=== PATIENT | female | born 1975 | race Caucasian/White ===

== ENCOUNTER 2017-04-02 03:24 | Emergency (ER) | payer MEDICAID ==
[~2017-04-02] VITALS: Ht 157.5 cm; Wt 108.9 kg
[~2017-04-02 03:24] MED LIST: ACET500C4 PO; AGM875T GT; AMPI250C11 PO; AMX500CIP PO; CYCL10TA9 PO; DOCU100C37 PO; ESTR1PAT73 TD; HYDR-3062 PO; HYDR-3714 PO; HYDR-3729 PO; HYDR-3816 PO; IBUP-1773 PO; IBUP-1780 PO; IBUP200C PO; METH4TAB PO; METR500T PO; ONDA4SOL2 PO; ONDAN4ODT PO; PRD20T PO; SIME80TA16 PO; SULF1TAB35 PO; SULF1TAB38 PO; TRAM-21 PO; TRAM50TA2 PO
[2017-04-02] MEDS ORDERED: KETOROLAC 60 MG/2 ML VIAL IM ONE (03:39)
[2017-04-02 03:42] LABS: KETONES,URINE NEGATIVE (NEGATIVE); LEUKOCYTE ESTERASE ,URINE NEGATIVE (NEGATIVE); NITRITE,URINE POSITIVE (NEGATIVE); PH,URINE 5 (5-9); PROTEIN,URINE 3+ (NEGATIVE); UROBILINOGEN,URINE 4 MG/DL (NORMAL)
[2017-04-02] MEDS ORDERED: KETOROLAC 60 MG/2 ML VIAL IM STA (03:42)
[2017-04-02 03:51] LABS: BILIRUBIN,URINE 3+ (NEGATIVE)
--- NOTE | 2017-04-02 03:51 | ED GU-Female ---
General Stated Complaint: POSS UTI Source: patient Exam Limitations: no limitations History of Present Illness Time seen by provider: 03:37 Initial Comments Here with complaint of pressure sensation and frequency of urination. She just completed a round of antibiotics that she did not know for sure what was but appears to be Bactrim DS by electronic medical record. Also took 2 days of tonight. She has completed the antibiotic treatment yesterday and did okay but today with worsening symptoms and problems. Timing/Duration: yesterday, changing over time Severity/Quality: mild, moderate, burning Location: suprapubic Radiation: none Activities at Onset: none Prior Genitourinary Problems: none Sexual [place] History: less than 2 months ago, single partner Modifying Factors: Improves With Resting Associated Symptoms: abdominal pain, dysuria, No fever/chills, No loss of bladder control, lower back pain, No mass, No nausea/vomiting, urinary frequency Allergies and Home Medications Allergies Coded Allergies: No Known Drug Allergies (Unverified , 12/23/09) Home Medications Docusate Sodium 100 Mg Capsule, 100 MG PO BID PRN for CONSTIPATION, #60 Prescribed by: ASHA PEMBERTON on 07/28/16 0848 Estradiol 1 Each Patch.tdwk, 1 EACH TD Weekly, #4 Ref 0 Prescribed by: ASHA PEMBERTON on 07/28/16 0850 Hydrocodone/Acetaminophen 1 Each Tablet, 0 EA PO Q6H PRN for MOD PAIN, #30 Prescribed by: ASHA PEMBERTON on 07/28/16 0848 Ibuprofen 600 Mg Tablet, 600 MG PO Q6H PRN for PAIN, #30 Prescribed by: ASHA PEMBERTON on 07/28/16 0848 Simethicone 80 Mg Tab.chew, 40 MG PO TID PRN for INDIGESTION, #20 Prescribed by: ASHA PEMBERTON on 07/28/16 0848 Constitutional: see HPI, No chills, No fever EENTM: no symptoms reported Respiratory: no symptoms reported Gastrointestinal: see HPI, No nausea, No vomiting Genitourinary: see HPI, frequency, pain Musculoskeletal: no symptoms reported Past Qtrtyeh-Loywas-Cenmvi Hx Patient Social History Alcohol Use: Occasionally Uses Recreational Drug Use: No Smoking Status: Current Everyday Smoker Type Used: Cigarettes Recent Foreign Travel: No Contact w/Someone Who Travel: No Recent Hopitalizations: No Immunizations Up To Date Tetanus Booster (TDap): Unknown Date of Influenza Vaccine: Jul 17, 2014 Seasonal Allergies Seasonal Allergies: No Surgeries HX Surgeries: Yes (D&C X2, VENTRAL HERNIA REPAIR, ) Surgeries: Appendectomy, Section Respiratory Hx Respiratory Disorders: No Cardiovascular Hx Cardiac Disorders: No Neurological Hx Neurological Disorders: No Reproductive System Hx 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: Yes (menorrhagia) Sexually Transmitted Disease: No HIV/AIDS: No Female 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: Ovarian Cyst Genitourinary Hx Genitourinary Disorders: Yes (currently taking abx for UTI) Gastrointestinal Hx Gastrointestinal Disorders: No Musculoskeletal Hx Musculoskeletal Disorders: No Endocrine Hx Endocrine Disorders: No HEENT HX ENT Disorders: Yes (FULL SET OF DENTURES) Hearing Impairment: Denies Cancer Hx Cancer: No Psychosocial Hx Psychiatric Problems: No Integumentary HX Skin/Integumentary Disorder: No Blood Transfusions Hx Blood Disorders: No Adverse Reaction to a Blood Tr: No Reviewed Nursing Assessment Reviewed/Agree w Nursing PMH: Yes Family Medical History Family Medial History: Congestive heart failure 19 FATHER Family history: Cardiovascular disease 19 FATHER Family history: Diabetes mellitus 19 MOTHER Heart disease 19 MOTHER History of - respiratory disease 19 FATHER 19 MOTHER Kidney disease 19 MOTHER Physical Exam Vital Signs Capillary Refill : General Appearance: WD/WN, mild distress (urinary frequency) Cardiovascular: regular rate, rhythm, no murmur Respiratory: lungs clear, normal breath sounds Gastrointestinal: soft, tenderness (mild suprapubic) Back: normal inspection, no CVA tenderness, no vertebral tenderness Extremities: non-tender, normal inspection Neurologic/Psychiatric: alert, oriented x 3 Skin: normal color, warm/dry Progress/Results/Core Measures Results/Orders Lab Results Laboratory Tests Test 04/02/17 03:29 Range/Units Urine Color ORANGE Urine Clarity SLIGHTLY CLOUDY Urine pH 5 5-9 Urine Specific Free [place]il 1.030 H 1.016-1.022 Urine Protein 3+ H NEGATIVE Urine Glucose (UA) NEGATIVE NEGATIVE Urine Ketones NEGATIVE NEGATIVE Urine Nitrite POSITIVE H NEGATIVE Urine Bilirubin 3+ H NEGATIVE Urine Urobilinogen 4 H NORMAL MG/DL Urine Leukocyte Esterase NEGATIVE NEGATIVE Urine RBC (Auto) 2+ H NEGATIVE Urine RBC 2-5 H /HPF Urine WBC 2-5 /HPF Urine Squamous Epithelial Cells 5-10 /HPF Urine Crystals NONE /LPF Urine Bacteria MODERATE H /HPF Urine Casts NONE /LPF Urine Mucus NEGATIVE /LPF Urine Culture Indicated YES My Orders Orders - KRISTINA REESE MD Ua Culture If Indicated (04/02/17 03:32) Ketorolac Injection (Toradol Injection) (04/02/17 03:42) Ketorolac Injection (Toradol Injection) (04/02/17 03:39) Urine Culture (04/02/17 03:29) Cephalexin Capsule (Keflex Capsule) (04/02/17 04:03) Progress Note : Progress Note Seen and evaluated. Toradol 60 mg IM. UA ordered. Monitor patient. Urine noted to be positive for UTI. Keflex 500 mg by mouth. Discharged home with return precautions. Patient verbalize understanding instructions and agreement with plan. Departure Impression Impression: Primary Impression: Urinary tract infection Qualified Codes: N30.00 - Acute cystitis without hematuria Disposition: HOME, SELF-CARE Condition: Stable Departure-Patient Inst. Decision time for Depature: 04:06 Referrals: MELANIE PRINCE DO (PCP/Family) Primary Care Physician Patient Instructions: Urinary Tract Infection, Adult (DC) Add. Discharge Instructions: Take medications as directed. Follow-up with your doctor this week for recheck. You should follow-up with Dr. Reardon for recheck and further evaluation as well as you have frequent urinary tract infections. Return for worse pain, fever, vomiting, weakness, breathing problems or other concerns as needed. You may take ibuprofen 800 mg every 8 hours as needed for pain. You may take Tylenol 1000 mg every 8 hours as needed for pain. Scripts Cephalexin (Cephalexin) 500 Mg Tablet 500 MG PO BID, #14 TAB 0 Refills Prov: KRISTINA REESE MD 04/02/17 KRISTINA REESE MD Apr 02, 2017 03:51
[2017-04-02] MEDS ORDERED: CEPHALEXIN 250 MG (KEFLEX) CAP PO ONE (04:00)
[2017-04-02] MEDS ORDERED: CEPHALEXIN 250 MG (KEFLEX) CAP PO STA (04:03)
[2017-04-02] MEDS ORDERED: CEPH500T PO (04:07)
[2017-04-02 04:15] VITALS: BP 140/70
== END 2017-04-02 04:12 | disposition home or self-care (01) ==
LOC: EDUNIT# 03:24 → ER 03:26
DX: N39.0 Urinary tract infection, site not specified (principal); F17.210 Nicotine dependence, cigarettes, uncomplicated; Z98.890 Other specified postprocedural states
CPT/HCPCS: 81000; 87088; 99282

== ENCOUNTER 2017-04-09 22:35 | Emergency (ER) | payer MEDICAID ==
[~2017-04-09] VITALS: Ht 157.5 cm; Wt 109.1 kg
[~2017-04-09 22:35] MED LIST changes: +CEPH500T PO
[2017-04-09] MEDS ORDERED: RX-NAPROXEN (NAPROSYN) 250 MG TAB PPK#4 PO STA (23:25)
[2017-04-09] MEDS ORDERED: RX-TRAMADOL 50 MG (ULTRAM) TAB PPK#4 PO STA (23:25)
[2017-04-09] MEDS ORDERED: NAPR500T3 PO (23:31)
[2017-04-09] MEDS ORDERED: TRAM-42 PO (23:31)
--- NOTE | 2017-04-09 23:31 | ED Lower Extremity ---
General Chief Complaint: Lower Extremity Stated Complaint: R KNEE PAIN Nursing Triage Note: C/O R knee pain Nursing Sepsis Screen: No Definite Risk Source: patient History of Present Illness Time seen by provider: 23:12 Initial Comments C/O RIGHT KNEE PAIN STATES SHE WAS "RUNNING AROUND" OUTSIDE IN [place] LAST NIGHT, AND STEPPED IN A HOLE AND TWISTED RIGHT KNEE DID NOT FALL AND NO DIRECT TRAUMA TO KNEE STATES SHE CANNOT BEAR WEIGHT ON RIGHT DUE TO PAIN IN KNEE KNEE IS SWOLLEN, AND SWELLING IS BETTER WHEN SHE PUTS ICE ON IT NO OTHER INJURIES OR PAIN NO PARESTHESIAS OR MOTOR DEFICITS NO PRIOR INJURY TO THIS KNEE, BUT STATES SHE DOES OCCASIONALLY HAVE PAIN IN THIS KNEE, BUT NEVER LIKE THIS PCP: DR. PRINCE Allergies and Home Medications Allergies Coded Allergies: No Known Drug Allergies (Unverified , 12/23/09) Home Medications Naproxen 500 Mg Tablet, 500 MG PO BID, #20 Prescribed by: SHELBY MESA on 04/09/17 2331 Tramadol HCl 50 Mg Tablet, 50 MG PO Q4H, #20 Prescribed by: SHELBY MESA on 04/09/17 2331 Constitutional: no symptoms reported : No Control/STD Prophylaxis: Other (HYST) Musculoskeletal: see HPI Skin: no symptoms reported Psychiatric/Neurological: No Symptoms Reported Past Qqlctgl-Bvrgqy-Wcussv Hx Patient Social History Alcohol Use: Denies Use Recreational Drug Use: No Smoking Status: Current Everyday Smoker Type Used: Cigarettes Recent Foreign Travel: No Contact w/Someone Who Travel: No Recent Infectious Disease Expo: No Recent Hopitalizations: No Immunizations Up To Date Tetanus Booster (TDap): Unknown Date of Influenza Vaccine: Jul 17, 2016 Seasonal Allergies Seasonal Allergies: No Surgeries HX Surgeries: Yes (D&C X2, VENTRAL HERNIA REPAIR, ) Surgeries: Abdominal, Appendectomy, Section, Hysterectomy Respiratory Hx Respiratory Disorders: No Cardiovascular Hx Cardiac Disorders: No Neurological Hx Neurological Disorders: No Reproductive System Hx 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: Yes (MENORRHAGIA) Sexually Transmitted Disease: No HIV/AIDS: No Female 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: Ovarian Cyst [place] History: Hysterectomy Genitourinary Hx Genitourinary Disorders: Yes Genitourinary Disorders: Bladder Infection Gastrointestinal Hx Gastrointestinal Disorders: No Musculoskeletal Hx Musculoskeletal Disorders: No Endocrine Hx Endocrine Disorders: No (OBESITY) HEENT HX ENT Disorders: Yes (FULL SET OF DENTURES) Hearing Impairment: Denies Cancer Hx Cancer: No Psychosocial Hx Psychiatric Problems: No Integumentary HX Skin/Integumentary Disorder: No Blood Transfusions Hx Blood Disorders: No Adverse Reaction to a Blood Tr: No Family Medical History Family Medial History: Congestive heart failure 19 FATHER Family history: Cardiovascular disease 19 FATHER Family history: Diabetes mellitus 19 MOTHER Heart disease 19 MOTHER History of - respiratory disease 19 FATHER 19 MOTHER Kidney disease 19 MOTHER Physical Exam Vital Signs Vital Sign - Last 12Hours 04/09/17 04/09/17 23:04 23:37 Temp 98.2 Pulse 74 Resp 18 B/P (MAP) 138/98 Pulse Ox 96 O2 Delivery Room Air Capillary Refill : Less Than 3 Seconds General Appearance: no apparent distress, obese, other (PT DID AMBULATE IN ON HER OWN) Cardiovascular: normal peripheral pulses, regular rate, rhythm Respiratory: normal breath sounds Hips: right hip normal inspection Legs: bilateral leg other (TRACE TO 1+ EDEMA BILATERAL LOWER LEGS) Knees: left knee normal inspection, right knee bone tenderness, right knee pain , right knee soft tissue tenderness, right knee swelling (MODERATE SWELLING), right knee other (TENDERNESS IS TO PATELLA AND LATERAL ASPECT OF KNEE. 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, no motor/sensory deficits, alert, normal mood/affect, oriented x 3 Skin: normal color, warm/dry Splinting and Joint Reduction : Roland wrap: Yes Immobilizers: 24 inch Knee Ordered: Crutches Progress/Results/Core Measures Results/Orders My Orders Orders - SHELBY MESA DO Knee, Right, 3 Views (04/09/17 23:13) Roland Bandage (04/09/17 23:24) Crutches (04/09/17 23:24) Knee Immobilizer (04/09/17 23:24) Rx-Naproxen (Rx-Naprosyn) (04/09/17 23:25) Rx-Tramadol Hcl (Rx-Ultram) (04/09/17 23:25) Vital Signs/I&O Vital Sign - Last 12Hours 04/09/17 04/09/17 23:04 23:37 Temp 98.2 98.0 Pulse 74 81 Resp 18 16 B/P (MAP) 138/98 Pulse Ox 96 97 O2 Delivery Room Air Blood Pressure Mean: 111 Departure Impression Impression: Primary Impression: Right knee sprain Disposition: 01 HOME, SELF-CARE Condition: Stable Departure-Patient Inst. Referrals: MELANIE PRINCE DO (PCP/Family) Primary Care Physician Patient Instructions: Going Up and Down Curbs or Stairs With a Walker or Crutches, How to Use Crutches, How to Use an Elastic Bandage, Knee Immobilizer ( DC), Knee Sprain (DC) Add. Discharge Instructions: ROLAND WRAP, KNEE IMMOBILIZER AND CRUTCHES NEEDED FOR COMFORT ICE TO AREA AT 20 MINUTE INTERVALS ELEVATE LEG MUCH POSSIBLE FOLLOW UP WITH YOUR DR IN 5-7 DAYS FOR FURTHER CARE All discharge instructions reviewed with patient and/or family. Voiced understanding. Scripts Tramadol HCl (Ultram) 50 Mg Tablet 50 MG PO Q4H, #20 TAB Prov: SHELBY MESA DO 04/09/17 Naproxen (Naproxen) 500 Mg Tablet 500 MG PO BID, #20 TAB Prov: SHELBY MESA DO 04/09/17 SHELBY MESA DO Apr 09, 2017 23:31
[2017-04-09 23:37] VITALS: BP 132/94
--- NOTE | 2017-04-10 09:05 | Diagnostic Imaging Report ---
INDICATION: Right knee pain 3 views of the right knee show no fracture, dislocation or other acute bony abnormality. No significant degenerative changes are seen. No effusion is evident. IMPRESSION: Normal right knee. Dictated by: Dictated on workstation # [id number]
--- OUTSIDE RECORDS SUMMARY | 2017-04-11 17:52 | XMS REPORT | Continuity of Care Document ---
Author Author [facility] Organization [facility] Address Unknown Phone Unavailable Allergies Active Description Code Type Severity Reaction Onset Reported/Identified Relationship to Patient Clinical Status Yes No Known Drug Allergies [id number] Drug Allergy Mild N/A 12/23/2009 Medications Problems Date Dx Coded Attending Type Code Diagnosis Diagnosed By 09/06/2014 KERVIN CHRISTIAN, STEFANY Mejia Ot 709.9 09/09/2014 KERVIN CHRISTIAN, STEFANY Mejia Ot 709.9 09/10/2014 STEFANY GALEANA MD Ot 709.9 09/16/2014 KERVIN CHRISTIAN, STEFANY Mejia Ot 709.9 06/19/2016 KRISTINA REESE MD Ot F17.210 NICOTINE DEPENDENCE, CIGARETTES, UNCOMPL 06/19/2016 KRISTINA REESE MD Ot M54.16 RADICULOPATHY, LUMBAR REGION 06/19/2016 KRISTINA REESE MD Ot S86.111A STRAIN MUSC/TEND POST GRP AT LOW LEG LEV 06/19/2016 KRISTINA REESE MD Ot X58.XXXA EXPOSURE TO OTHER SPECIFIED FACTORS , INI 06/19/2016 KRISTINA REESE MD Ot Y99.8 OTHER EXTERNAL CAUSE STATUS 06/22/2016 KRISTINA REESE MD Ot F17.210 NICOTINE DEPENDENCE, CIGARETTES, UNCOMPL 06/22/2016 KRISTINA REESE MD Ot M54.16 RADICULOPATHY, LUMBAR REGION 06/22/2016 KRISTINA REESE MD Ot S86.111A STRAIN MUSC/TEND POST GRP AT LOW LEG LEV 06/22/2016 KRISTINA REESE MD Ot X58.XXXA EXPOSURE TO OTHER SPECIFIED FACTORS , INI 06/22/2016 KRISTINA REESE MD Ot Y99.8 OTHER EXTERNAL CAUSE STATUS 06/22/2016 KRISTINA REESE MD Ot F17.210 NICOTINE DEPENDENCE, CIGARETTES, UNCOMPL 06/22/2016 KRISTINA REESE MD Ot M54.16 RADICULOPATHY, LUMBAR REGION 06/22/2016 KRISTINA REESE MD Ot S86.111A STRAIN MUSC/TEND POST GRP AT LOW LEG LEV 06/22/2016 KRISTINA REESE MD Ot X58.XXXA EXPOSURE TO OTHER SPECIFIED FACTORS , INI 06/22/2016 KRISTINA REESE MD Ot Y99.8 OTHER EXTERNAL CAUSE STATUS 07/06/2016 GLENN DIAZ EPITAXIAL REACTOR OPERATOR Ot F17.210 NICOTINE DEPENDENCE, CIGARETTES, UNCOMPL 07/06/2016 GLENN DIAZ EPITAXIAL REACTOR OPERATOR Ot N39.0 URINARY TRACT INFECTION, SITE NOT SPECIF 07/06/2016 GLENN DIAZ EPITAXIAL REACTOR OPERATOR Ot R10.2 PELVIC AND PERINEAL PAIN 07/06/2016 GLENN DIAZ EPITAXIAL REACTOR OPERATOR Ot R19.09 OTHER INTRA-ABDOMINAL AND PELVIC SWELLIN 07/07/2016 GLENN DIAZ EPITAXIAL REACTOR OPERATOR Ot F17.210 NICOTINE DEPENDENCE, CIGARETTES, UNCOMPL 07/07/2016 GLENN DIAZ EPITAXIAL REACTOR OPERATOR Ot N39.0 URINARY TRACT INFECTION, SITE NOT SPECIF 07/07/2016 GLENN DIAZ EPITAXIAL REACTOR OPERATOR Ot R10.2 PELVIC AND PERINEAL PAIN 07/07/2016 GLENN DIAZ EPITAXIAL REACTOR OPERATOR Ot R19.09 OTHER INTRA-ABDOMINAL AND PELVIC SWELLIN 07/23/2016 NOBLES DO OAXNA C Ot N83.201 UNSPECIFIED OVARIAN CYST, RIGHT SIDE 07/23/2016 NOBLES DO OXANA C Ot N83.202 UNSPECIFIED OVARIAN CYST, LEFT SIDE 07/23/2016 NOBLES DO OXANA C Ot N92.0 EXCESSIVE AND FREQUENT MENSTRUATION WITH 07/23/2016 NOBLES DO, OXANA C Ot Z01.812 ENCOUNTER FOR PREPROCEDURAL LABORATORY E 07/23/2016 NOBLES DO OXANA C Ot Z11.2 ENCOUNTER FOR SCREENING FOR OTHER BACTER 07/26/2016 NOBLES DO OXANA C Ot N83.201 UNSPECIFIED OVARIAN CYST, RIGHT SIDE 07/26/2016 NOBLES DO OXANA C Ot N83.202 UNSPECIFIED OVARIAN CYST, LEFT SIDE 07/26/2016 NOBLES DO OXANA C Ot N92.0 EXCESSIVE AND FREQUENT MENSTRUATION WITH 07/26/2016 NOBLES DO OXANA C Ot Z01.812 ENCOUNTER FOR PREPROCEDURAL LABORATORY E 07/26/2016 NOBLES DO OXANA C Ot Z11.2 ENCOUNTER FOR SCREENING FOR OTHER BACTER 07/28/2016 NOBLES DO OXANA C Ot K66.0 PERITONEAL ADHESIONS (POSTPROCEDURAL) (P 07/28/2016 NOBLES DO OXANA C Ot N72 INFLAMMATORY DISEASE OF CERVIX UTERI 07/28/2016 NOBLES DO OXANA C Ot N80.0 ENDOMETRIOSIS OF UTERUS 07/28/2016 NOBLES DO OXANA C Ot N80.1 ENDOMETRIOSIS OF OVARY 07/28/2016 NOBLES DO, OXANA C Ot N83.201 UNSPECIFIED OVARIAN CYST, RIGHT SIDE 07/28/2016 NOBLES DO, OXANA C Ot N83.202 UNSPECIFIED OVARIAN CYST, LEFT SIDE 07/28/2016 NOBLES DO, OXANA C Ot N87.9 DYSPLASIA OF CERVIX UTERI, UNSPECIFIED 07/28/2016 NOBLES DO, OXANA C Ot N92.0 EXCESSIVE AND FREQUENT MENSTRUATION WITH 07/28/2016 NOBLES DO, OXANA C Ot R73.9 HYPERGLYCEMIA, UNSPECIFIED 07/28/2016 NOBLES DO, OXANA C Ot Z23 ENCOUNTER FOR IMMUNIZATION 09/02/2016 NOBLES DO OXANA C Ot K66.0 PERITONEAL ADHESIONS (POSTPROCEDURAL) (P 09/02/2016 NOBLES DO OXANA C Ot N72 INFLAMMATORY DISEASE OF CERVIX UTERI 09/02/2016 NOBLES DO, OXANA C Ot N80.0 ENDOMETRIOSIS OF UTERUS 09/02/2016 NOBLES DO OXANA C Ot N80.1 ENDOMETRIOSIS OF OVARY 09/02/2016 NOBLES DO OXANA C Ot N83.201 UNSPECIFIED OVARIAN CYST, RIGHT SIDE 09/02/2016 NOBLES DO, OXANA C Ot N83.202 UNSPECIFIED OVARIAN CYST, LEFT SIDE 09/02/2016 NOBLES DO, OXANA C Ot N87.9 DYSPLASIA OF CERVIX UTERI, UNSPECIFIED 09/02/2016 NOBLES DO, OXANA C Ot R73.9 HYPERGLYCEMIA, UNSPECIFIED 09/02/2016 NOBLES DO, OXANA C Ot Z23 ENCOUNTER FOR IMMUNIZATION Procedures Results Test Result Range Complete blood count (CBC) with automated white blood cell (WBC) differential - 07/06/16 14:09 Blood leukocytes automated count (number/volume) 14.3 10*3/ uL 4.3-11.0 Blood erythrocytes automated count (number/volume) 5.14 10*6 /uL 4.35-5.85 Venous blood hemoglobin measurement (mass/volume) 16.0 g/dL 11.5-16.0 Blood hematocrit (volume fraction) 46 % 35-52 Automated erythrocyte mean corpuscular volume 89 [foz_us] 80-99 Automated erythrocyte mean corpuscular hemoglobin (mass per erythrocyte) 31 pg 25-34 Automated erythrocyte mean corpuscular hemoglobin concentration measurement ( mass/volume) 35 g/dL 32-36 Automated erythrocyte distribution width ratio 14.7 % 10.0-14.5 Automated blood platelet count (count/volume) 238 10*3/uL 130-400 Automated blood platelet mean volume measurement 11.0 [foz_ us] 7.4-10.4 Automated blood neutrophils/100 leukocytes 67 % 42-75 Automated blood lymphocytes/100 leukocytes 23 % 12-44 Blood monocytes/100 leukocytes 6 % 0-12 Automated blood eosinophils/100 leukocytes 3 % 0-10 Automated blood basophils/100 leukocytes 1 % 0-10 Blood neutrophils automated count (number/volume) 9.6 10*3 1.8-7.8 Blood lymphocytes automated count (number/volume) 3.3 10*3 1.0-4.0 Blood monocytes automated count (number/volume) 0.9 10*3 0.0-1.0 Automated eosinophil count 0.5 10*3/uL 0.0-0.3 Automated blood basophil count (count/volume) 0.1 10*3/uL 0.0-0.1 PT panel in platelet poor plasma by coagulation assay - 07/06/16 14:09 Prothrombin time (PT) in platelet poor plasma by coagulation assay 12.7 s 12.2-14.7 INR in platelet poor plasma or blood by coagulation assay 1.0 0.8-1.4 Activated partial thromboplastin time (aPTT) in platelet poor plasma bycoagulation assay - 07/06/16 14:09 Activated partial thromboplastin time (aPTT) in platelet poor plasma bycoagulation assay 24 s 24-35 Comprehensive metabolic panel - 07/06/16 14:09 Serum or plasma sodium measurement (moles/volume) 141 mmol/ L 135-145 Serum or plasma potassium measurement (moles/volume) 3.6 mmol/L 3.6-5.0 Serum or plasma chloride measurement (moles/volume) 111 mmol /L 98-107 Carbon dioxide 21 mmol/L 21-32 Serum or plasma anion gap determination (moles/volume) 9 mmol/L 5-14 Serum or plasma urea nitrogen measurement (mass/volume) 8 mg /dL 7-18 Serum or plasma creatinine measurement (mass/volume) 0.74 mg /dL 0.60-1.30 Serum or plasma urea nitrogen/creatinine mass ratio 11 NRG Serum or plasma creatinine measurement with calculation of estimated glomerular filtration rate > NRG Serum or plasma glucose measurement (mass/volume) 194 mg/dL 70-105 Serum or plasma calcium measurement (mass/volume) 8.9 mg/dL 8.5-10.1 Serum or plasma total bilirubin measurement (mass/volume) 0.4 mg/dL 0.1-1.0 Serum or plasma alkaline phosphatase measurement (enzymatic activity/volume) 59 U/L 40-136 Serum or plasma aspartate aminotransferase measurement (enzymatic activity/ volume) 10 U/L 5-34 Serum or plasma alanine aminotransferase measurement (enzymatic activity/volume ) 15 U/L 0-55 Serum or plasma protein measurement (mass/volume) 5.8 g/dL 6.4-8.2 Serum or plasma albumin measurement (mass/volume) 3.7 g/dL 3.2-4.5 Blood manual differential performed detection - 07/06/16 14:09 Blood monocytes/100 leukocytes 5 % NRG Manual blood segmented neutrophils/100 leukocytes 62 % NRG Blood band neutrophils/100 leukocytes 0 % NRG Manual blood lymphocytes/100 leukocytes 31 % NRG Manual eosinophils/100 leukocytes in nose 1 % NRG Manual blood basophils/100 leukocytes 0 % NRG Blood lymphocytes variant/100 leukocytes 1 % NRG Blood erythrocyte morphology finding identification NORMAL NRG Serum or plasma choriogonadotropin measurement (units/volume) - 07/06/16 14:09 Serum or plasma choriogonadotropin measurement (units/volume) < m[iU]/mL <5 Bacteria identification in genital specimen by aerobe culture - 07/06/16 14:20 FREE TEXT EXTERNAL PLUS NORMAL GABRIELLA NRG QUANTITY OF GROWTH Moderate Growth NRG Bacteria identification in genital specimen by aerobe culture [id number] NRG Complete urinalysis with reflex to culture - 07/06/16 14:20 Urine color determination HAL NRG Urine clarity determination SLIGHTLY CLOUDY NRG Urine pH measurement by test strip 5 5- 9 Specific gravity of urine by test strip 1.030 1.016-1.022 Urine protein assay by test strip, semi-quantitative 2+ NEGATIVE Urine glucose detection by automated test strip NEGATIVE NEGATIVE Erythrocytes detection in urine sediment by light microscopy 5+ NEGATIVE Urine ketones detection by automated test strip 1+ NEGATIVE Urine nitrite detection by test strip POSITIVE NEGATIVE Urine total bilirubin detection by test strip NEGATIVE NEGATIVE Urine urobilinogen measurement by automated test strip (mass/volume) 1 mg/dL NORMAL Urine leukocyte esterase detection by dipstick 1+ NEGATIVE Automated urine sediment erythrocyte count by microscopy (number/high power field) > [HPF] NRG Automated urine sediment leukocyte count by microscopy (number/high power field ) [HPF] NRG Bacteria detection in urine sediment by light microscopy FEW NRG Squamous epithelial cells detection in urine sediment by light microscopy 25-50 NRG Crystals detection in urine sediment by light microscopy NONE NRG Casts detection in urine sediment by light microscopy NONE NRG Mucus detection in urine sediment by light microscopy NEGATIVE NRG Complete urinalysis with reflex to culture YES NRG Bacterial urine culture - 07/06/16 14:20 Bacterial urine culture [id number] NRG COLONY COUNT 10,000/ML - 100,000/ML NRG FTX;REPORTABLE SENSITIVITY REPORTED 07/07 16:00 NRG URINE CULTURE RESULTS <10,000/ML NRG Microscopic examination by wet preparation - 07/06/16 14:20 WET PREP RESULTS NO CLUE CELLS OBSERVED NRG Chlamydia trachomatis DNA detection by probe and signal amplification method - 07/06/16 14:20 Chlamydia trachomatis DNA detection by probe and target amplification method Negative Negative Bacterial susceptibility panel - 07/06/16 14:20 Gentamicin susceptibility test by minimum inhibitory concentration <= NRG Trimethoprim/sulfamethoxazole susceptibility test by minimum inhibitoryconcentration <= NRG Ampicillin susceptibility test by minimum inhibitory concentration 8 NRG Tobramycin susceptibility test by minimum inhibitory concentration <= NRG Cefazolin susceptibility test by minimum inhibitory concentration <= NRG Ceftriaxone susceptibility test by minimum inhibitory concentration <= NRG Ampicillin/sulbactam susceptibility test by minimum inhibitory concentration 4 NRG Piperacillin/tazobactam susceptibility test by minimum inhibitory concentration <= NRG Ciprofloxacin susceptibility test by minimum inhibitory concentration <= NRG Meropenem susceptibility test by minimum inhibitory concentration <= NRG Nitrofurantoin susceptibility test by minimum inhibitory concentration <= NRG Aztreonam susceptibility test by minimum inhibitory concentration <= NRG Extended spectrum beta lactamase (ESBL) producing bacteria susceptibility test by minimum inhibitory concentration NEG NRG Neisseria gonorrhoeae DNA detection by probe and signal amplification method - 07/06/16 14:20 Gonorrhea amp DNA-urine Negative Negative Complete blood count (CBC) with automated white blood cell (WBC) differential - 07/23/16 10:00 Blood leukocytes automated count (number/volume) 12.8 10*3/ uL 4.3-11.0 Blood erythrocytes automated count (number/volume) 5.15 10*6 /uL 4.35-5.85 Venous blood hemoglobin measurement (mass/volume) 16.0 g/dL 11.5-16.0 Blood hematocrit (volume fraction) 47 % 35-52 Automated erythrocyte mean corpuscular volume 91 [foz_us] 80-99 Automated erythrocyte mean corpuscular hemoglobin (mass per erythrocyte) 31 pg 25-34 Automated erythrocyte mean corpuscular hemoglobin concentration measurement ( mass/volume) 34 g/dL 32-36 Automated erythrocyte distribution width ratio 14.9 % 10.0-14.5 Automated blood platelet count (count/volume) 290 10*3/uL 130-400 Automated blood platelet mean volume measurement 10.9 [foz_ us] 7.4-10.4 Automated blood neutrophils/100 leukocytes 72 % 42-75 Automated blood lymphocytes/100 leukocytes 19 % 12-44 Blood monocytes/100 leukocytes 5 % 0-12 Automated blood eosinophils/100 leukocytes 3 % 0-10 Automated blood basophils/100 leukocytes 1 % 0-10 Blood neutrophils automated count (number/volume) 9.3 10*3 1.8-7.8 Blood lymphocytes automated count (number/volume) 2.4 10*3 1.0-4.0 Blood monocytes automated count (number/volume) 0.7 10*3 0.0-1.0 Automated eosinophil count 0.4 10*3/uL 0.0-0.3 Automated blood basophil count (count/volume) 0.1 10*3/uL 0.0-0.1 Blood type T Indirect antibody screen panel - 07/23/16 10:00 ABO+Rh group ABP NRG Blood group antibody screen NEGATIVE NRG Methicillin resistant Staphylococcus aureus (MRSA) screening culture - 10:00 Methicillin resistant Staphylococcus aureus (MRSA) screening culture NEG NRG Complete urinalysis with reflex to culture - 07/23/16 10:06 Urine color determination YELLOW NRG Urine clarity determination CLEAR NRG Urine pH measurement by test strip 5 5- 9 Specific gravity of urine by test strip 1.020 1.016-1.022 Urine protein assay by test strip, semi-quantitative 2+ NEGATIVE Urine glucose detection by automated test strip NEGATIVE NEGATIVE Erythrocytes detection in urine sediment by light microscopy 5+ NEGATIVE Urine ketones detection by automated test strip NEGATIVE NEGATIVE Urine nitrite detection by test strip NEGATIVE NEGATIVE Urine total bilirubin detection by test strip NEGATIVE NEGATIVE Urine urobilinogen measurement by automated test strip (mass/volume) NORMAL NORMAL Urine leukocyte esterase detection by dipstick 1+ NEGATIVE Automated urine sediment erythrocyte count by microscopy (number/high power field) [HPF] NRG Automated urine sediment leukocyte count by microscopy (number/high power field ) RARE NRG Bacteria detection in urine sediment by light microscopy NEGATIVE NRG Squamous epithelial cells detection in urine sediment by light microscopy 0-2 NRG Crystals detection in urine sediment by light microscopy NONE NRG Casts detection in urine sediment by light microscopy NONE NRG Mucus detection in urine sediment by light microscopy NEGATIVE NRG Complete urinalysis with reflex to culture NO NRG Urine beta human chorionic gonadotropin (hCG) measurement - 07/27/16 06:10 Urine beta human chorionic gonadotropin (hCG) measurement NEGATIVE NEGATIVE Blood type T Indirect antibody screen panel - 07/27/16 06:30 ABO+Rh group ABP NRG Transfusion band number [id number] NRG Blood group antibody screen NEGATIVE NRG Complete blood count (CBC) with automated white blood cell (WBC) differential - 07/27/16 14:00 Blood leukocytes automated count (number/volume) 27.9 10*3/ uL 4.3-11.0 Blood erythrocytes automated count (number/volume) 5.00 10*6 /uL 4.35-5.85 Venous blood hemoglobin measurement (mass/volume) 15.4 g/dL 11.5-16.0 Blood hematocrit (volume fraction) 46 % 35-52 Automated erythrocyte mean corpuscular volume 92 [foz_us] 80-99 Automated erythrocyte mean corpuscular hemoglobin (mass per erythrocyte) 31 pg 25-34 Automated erythrocyte mean corpuscular hemoglobin concentration measurement ( mass/volume) 33 g/dL 32-36 Automated erythrocyte distribution width ratio 15.3 % 10.0-14.5 Automated blood platelet count (count/volume) 238 10*3/uL 130-400 Automated blood platelet mean volume measurement 10.8 [foz_ us] 7.4-10.4 Automated blood neutrophils/100 leukocytes 94 % 42-75 Automated blood lymphocytes/100 leukocytes 3 % 12-44 Blood monocytes/100 leukocytes 3 % 0-12 Automated blood eosinophils/100 leukocytes 0 % 0-10 Automated blood basophils/100 leukocytes 0 % 0-10 Blood neutrophils automated count (number/volume) 26.2 10*3 1.8-7.8 Blood lymphocytes automated count (number/volume) 0.9 10*3 1.0-4.0 Blood monocytes automated count (number/volume) 0.8 10*3 0.0-1.0 Automated eosinophil count 0.0 10*3/uL 0.0-0.3 Automated blood basophil count (count/volume) 0.0 10*3/uL 0.0-0.1 Blood manual differential performed detection - 07/27/16 14:00 Blood monocytes/100 leukocytes 0 % NRG Manual blood segmented neutrophils/100 leukocytes 94 % NRG Blood band neutrophils/100 leukocytes 1 % NRG Manual blood lymphocytes/100 leukocytes 5 % NRG Manual eosinophils/100 leukocytes in nose 0 % NRG Manual blood basophils/100 leukocytes 0 % NRG Blood erythrocyte morphology finding identification NORMAL [facility] Whole blood basic metabolic panel - 07/27/16 14:00 Serum or plasma sodium measurement (moles/volume) 138 mmol/ L 135-145 Serum or plasma potassium measurement (moles/volume) 4.6 mmol/L 3.6-5.0 Serum or plasma chloride measurement (moles/volume) 108 mmol /L 98-107 Carbon dioxide 18 mmol/L 21-32 Serum or plasma anion gap determination (moles/volume) 12 mmol/L 5-14 Serum or plasma urea nitrogen measurement (mass/volume) 9 mg /dL 7-18 Serum or plasma creatinine measurement (mass/volume) 0.78 mg /dL 0.60-1.30 Serum or plasma urea nitrogen/creatinine mass ratio 12 NRG Serum or plasma creatinine measurement with calculation of estimated glomerular filtration rate > NRG Serum or plasma glucose measurement (mass/volume) 174 mg/dL 70-105 Serum or plasma calcium measurement (mass/volume) 8.1 mg/dL 8.5-10.1 Hemoglobin A1c - 07/27/16 14:00 Hemoglobin A1c 5.1 % 4.5-6.2 Capillary blood glucose measurement by glucometer (mass/volume) - 07/27/16 18: 33 Capillary blood glucose measurement by glucometer (mass/volume) 132 mg/dL 70-110 Capillary blood glucose measurement by glucometer (mass/volume) - 07/27/16 19: 59 Capillary blood glucose measurement by glucometer (mass/volume) 135 mg/dL 70-110 Complete blood count (CBC) with automated white blood cell (WBC) differential - 07/28/16 04:45 Blood leukocytes automated count (number/volume) 19.9 10*3/ uL 4.3-11.0 Blood erythrocytes automated count (number/volume) 4.47 10*6 /uL 4.35-5.85 Venous blood hemoglobin measurement (mass/volume) 13.7 g/dL 11.5-16.0 Blood hematocrit (volume fraction) 41 % 35-52 Automated erythrocyte mean corpuscular volume 92 [foz_us] 80-99 Automated erythrocyte mean corpuscular hemoglobin (mass per erythrocyte) 31 pg 25-34 Automated erythrocyte mean corpuscular hemoglobin concentration measurement ( mass/volume) 33 g/dL 32-36 Automated erythrocyte distribution width ratio 15.2 % 10.0-14.5 Automated blood platelet count (count/volume) 239 10*3/uL 130-400 Automated blood platelet mean volume measurement 11.2 [foz_ us] 7.4-10.4 Automated blood neutrophils/100 leukocytes 75 % 42-75 Automated blood lymphocytes/100 leukocytes 18 % 12-44 Blood monocytes/100 leukocytes 7 % 0-12 Automated blood eosinophils/100 leukocytes 0 % 0-10 Automated blood basophils/100 leukocytes 0 % 0-10 Blood neutrophils automated count (number/volume) 14.9 10*3 1.8-7.8 Blood lymphocytes automated count (number/volume) 3.5 10*3 1.0-4.0 Blood monocytes automated count (number/volume) 1.4 10*3 0.0-1.0 Automated eosinophil count 0.1 10*3/uL 0.0-0.3 Automated blood basophil count (count/volume) 0.0 10*3/uL 0.0-0.1 Comprehensive metabolic panel - 07/28/16 04:45 Serum or plasma sodium measurement (moles/volume) 137 mmol/ L 135-145 Serum or plasma potassium measurement (moles/volume) 4.0 mmol/L 3.6-5.0 Serum or plasma chloride measurement (moles/volume) 108 mmol /L 98-107 Carbon dioxide 18 mmol/L 21-32 Serum or plasma anion gap determination (moles/volume) 11 mmol/L 5-14 Serum or plasma urea nitrogen measurement (mass/volume) 10 mg/dL 7-18 Serum or plasma creatinine measurement (mass/volume) 0.59 mg /dL 0.60-1.30 Serum or plasma urea nitrogen/creatinine mass ratio 17 NRG Serum or plasma creatinine measurement with calculation of estimated glomerular filtration rate > NRG Serum or plasma glucose measurement (mass/volume) 103 mg/dL 70-105 Serum or plasma calcium measurement (mass/volume) 7.9 mg/dL 8.5-10.1 Serum or plasma total bilirubin measurement (mass/volume) 0.5 mg/dL 0.1-1.0 Serum or plasma alkaline phosphatase measurement (enzymatic activity/volume) 45 U/L 40-136 Serum or plasma aspartate aminotransferase measurement (enzymatic activity/ volume) 24 U/L 5-34 Serum or plasma alanine aminotransferase measurement (enzymatic activity/volume ) 18 U/L 0-55 Serum or plasma protein measurement (mass/volume) 5.2 g/dL 6.4-8.2 Serum or plasma albumin measurement (mass/volume) 3.0 g/dL 3.2-4.5 Complete urinalysis with reflex to culture - 04/02/17 03:29 Urine color determination ORANGE NRG Urine clarity determination SLIGHTLY CLOUDY NRG Urine pH measurement by test strip 5 5- 9 Specific gravity of urine by test strip 1.030 1.016-1.022 Urine protein assay by test strip, semi-quantitative 3+ NEGATIVE Urine glucose detection by automated test strip NEGATIVE NEGATIVE Erythrocytes detection in urine sediment by light microscopy 2+ NEGATIVE Urine ketones detection by automated test strip NEGATIVE NEGATIVE Urine nitrite detection by test strip POSITIVE NEGATIVE Urine total bilirubin detection by test strip 3+ NEGATIVE Urine urobilinogen measurement by automated test strip (mass/volume) 4 mg/dL NORMAL Urine leukocyte esterase detection by dipstick NEGATIVE NEGATIVE Automated urine sediment erythrocyte count by microscopy (number/high power field) [HPF] NRG Automated urine sediment leukocyte count by microscopy (number/high power field ) [HPF] NRG Bacteria detection in urine sediment by light microscopy MODERATE NRG Squamous epithelial cells detection in urine sediment by light microscopy 5-10 NRG Crystals detection in urine sediment by light microscopy NONE NRG Casts detection in urine sediment by light microscopy NONE NRG Mucus detection in urine sediment by light microscopy NEGATIVE NRG Complete urinalysis with reflex to culture YES NRG Bacterial urine culture - 04/02/17 03:29 Bacterial urine culture SEE COMMEN NRG COLONY COUNT . NRG FTX;REPORTABLE MIXED GRAM POSITIVE GABRIELLA <10,000/ML NRG Encounters ACCT No. Visit Date/Time Discharge Status Pt. Type Provider Facility Loc./Unit Complaint [id number] 04/02/2017 03:26:00 2016 04:12:00 DIS Emergency KRISTINA REESE MD [facility] ER POSS UTI [id number] 07/27/2016 06:00:00 2015 12:55:00 DIS Outpatient OXANA NOBLES DO [facility] SDC OVARIAN CYSTS [id number] 07/23/2016 09:41:00 2015 10:10:00 DIS Outpatient OXANA NOBLES DO [facility] PREOP OVARIAN CYSTS [id number] 07/06/2016 14:04:00 2015 16:48:00 DIS Emergency GLENN DIAZ APRN [facility] ER VAG BLEEDING ABD PAIN/PRESSURE [id number] 06/19/2016 22:13:00 2015 23:29:00 DIS Emergency KRISTINA REESE MD [facility] ER RIGHT LEG PAIN/WEAKNESS [id number] 09/02/2014 12:30:00 2013 08:50:00 DIS Outpatient STEFANY GALEANA MD [facility] WOUNDCARE [id number] 07/29/2014 15:08:00 2013 11:20:00 DIS Inpatient [id number] 07/26/2014 07:10:00 2013 23:59:59 CLS Outpatient [id number] 07/14/2014 16:39:00 2013 15:20:00 DIS Inpatient [id number] 06/26/2014 09:40:00 2013 16:05:00 DIS Outpatient [id number] 06/03/2014 08:29:00 2013 23:59:59 CLS Outpatient [id number] 05/24/2014 21:50:00 2013 12:40:00 DIS Inpatient [id number] 05/15/2014 11:14:00 2013 10:53:00 DIS Outpatient [id number] 05/09/2014 07:47:00 2013 23:59:59 CLS Outpatient [id number] 04/30/2014 12:21:00 2013 23:59:59 CLS Outpatient [id number] 04/25/2014 07:58:00 2013 23:59:59 CLS Outpatient
== END 2017-04-09 23:38 | disposition home or self-care (01) ==
LOC: EDUNIT# 22:35 → ER 22:37
DX: S83.91XA Sprain of unspecified site of right knee, initial encounter (principal); F17.210 Nicotine dependence, cigarettes, uncomplicated; X50.0XXA Overexertion from strenuous movement or load, initial encounter
CPT/HCPCS: 73562; 99283

== ENCOUNTER 2017-06-16 22:44 | Emergency (ER) | payer MEDICAID ==
[~2017-06-16] VITALS: Ht 157.5 cm; Wt 104.3 kg
[~2017-06-16 22:44] MED LIST changes: +NAPR500T4 PO; +TRAM-42 PO
[2017-06-16 23:10] LABS: BILIRUBIN,URINE NEGATIVE (NEGATIVE); KETONES,URINE NEGATIVE (NEGATIVE); LEUKOCYTE ESTERASE ,URINE 3+ (NEGATIVE); NITRITE,URINE POSITIVE (NEGATIVE); PH,URINE 6 (5-9); PROTEIN,URINE 2+ (NEGATIVE); UROBILINOGEN,URINE 1 MG/DL (NORMAL)
[2017-06-16 23:23] LABS: WBC,URINE TNTC /HPF
--- NOTE | 2017-06-16 23:29 | ED GU-Female ---
General Chief Complaint: -Female Stated Complaint: POSSIBLE UTI Nursing Triage Note: PT TO ED 8 W/ C/O URGENCY, PAIN UPON URINATION ONSET TODAY. Nursing Sepsis Screen: No Definite Risk Source: patient History of Present Illness Time seen by provider: 23:00 Initial Comments C/O UTI SYMPTOMS --BEGAN TODAY C/O URGENCY, FREQUENCY, SMALL AMOUNTS, PRESSURE AND PAIN ON URINATION, SUPRAPUBIC PAIN NO BACK PAIN NO FEVER HAS SLIGHT NAUSEA, NO VOMITING HAS HISTORY OF FREQUENT UTI'S --LAST ONE APPROXIMATELY 2 MONTHS AGO PCP: DR. PRINCE CLIENT ACCOUNT REPRESENTATIVE: DR. NOBLES Allergies and Home Medications Allergies Coded Allergies: No Known Drug Allergies (Unverified , 12/23/09) Home Medications Cefuroxime Axetil 250 Mg Tablet, 250 MG PO BID, #10 Prescribed by: GLENN DIAZ on 06/20/17 2232 Naproxen 500 Mg Tablet, 500 MG PO BID, #20 Prescribed by: SHELBY MESA on 04/09/17 2331 Nitrofurantoin Monohyd/M-Cryst 100 Mg Capsule, 100 MG PO BID, #30 Prescribed by: SHELBY MESA on 06/16/17 2333 Phenazopyridine HCl 200 Mg Tablet, 1 TAB PO TID, #15 Prescribed by: SHELBY MESA on 06/16/17 2333 Tramadol HCl 50 Mg Tablet, 50 MG PO Q4H, #20 Prescribed by: SHELBY MESA on 04/09/17 2331 Constitutional: no symptoms reported Respiratory: no symptoms reported Cardiovascular: no symptoms reported Gastrointestinal: see HPI, abdominal pain, No loss of appetite, nausea, No vomiting Genitourinary: see HPI, burning, dysuria, frequency, denies flank pain, denies hematuria, denies incontinence, pain, urgency Musculoskeletal: no symptoms reported, No back pain Skin: no symptoms reported Psychiatric/Neurological: No Symptoms Reported Endocrine: No Symptoms Reported Hematologic/Lymphatic: No Symptoms Reported Past Sczrynw-Dmooma-Qtomuv Hx Patient Social History Alcohol Use: Denies Use Alcohol Beverage of Choice: Beer Recreational Drug Use: No Smoking Status: Current Everyday Smoker (1 PPD) Type Used: Cigarettes Recent Foreign Travel: No Contact w/Someone Who Travel: No Recent Infectious Disease Expo: No Recent Hopitalizations: No Physical Abuse: No Sexual Abuse: No Mistreated: No Fear: No Immunizations Up To Date Tetanus Booster (TDap): Unknown Date of Influenza Vaccine: Jul 17, 2016 Seasonal Allergies Seasonal Allergies: No Surgeries History of Surgeries: Yes (D&C X2, VENTRAL HERNIA REPAIR, HYST/BSO; LAPAROSCOPIES / LYSIS OF ADHESIONS; ABDOMINAL WALL ABSCESS) Surgeries: Abdominal, Appendectomy, Section, Hysterectomy, Oophorectomy Respiratory History of Respiratory Disorde: No Cardiovascular History of Cardiac Disorders: No Neurological History of Neurological Disord: No Reproductive System Hx 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: Yes (MENORRHAGIA; CERVICAL DYSPLASIA) Sexually Transmitted Disease: No HIV/AIDS: No Female 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: Menstrual Problems, Ovarian Cyst 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 Genitourinary History of Genitourinary Disor: Yes Genitourinary Disorders: Bladder Infection, UTI-Chronic Gastrointestinal History of Gastrointestinal Di: No Musculoskeletal History of Musculoskeletal Dis: No Endocrine History of Endocrine Disorders: No (OBESITY) HEENT History of HEENT Disorders: No Hearing Impairment: Denies Cancer History of Cancer: No Psychosocial History of Psychiatric Problem: No Suicide Risk Score: 0 Integumentary History of Skin or Integumenta: Yes (ABDOMINAL WALL ABSCESS) Blood Transfusions History of Blood Disorders: No Adverse Reaction to a Blood Tr: No Family Medical History Family Medial History: Congestive heart failure 19 FATHER Family history: Cardiovascular disease 19 FATHER Family history: Diabetes mellitus 19 MOTHER Heart disease 19 MOTHER History of - respiratory disease 19 FATHER 19 MOTHER Kidney disease 19 MOTHER Physical Exam Vital Signs Capillary Refill : Less Than 3 Seconds General Appearance: no apparent distress, obese HEENT: PERRL/EOMI Neck: normal inspection Cardiovascular: regular rate, rhythm Respiratory: normal breath sounds Gastrointestinal: soft, tenderness (SUPRAPUBIC) Back: no CVA tenderness Extremities: normal inspection, no pedal edema, normal capillary refill 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 Referrals: MELANIE PRINCE DO (PCP/Family) Primary Care Physician Patient Instructions: Urinary Tract Infection, Adult (DC) Add. Discharge Instructions: LOTS OF CLEAR LIQUIDS--NO COFFEE, POP OR TEA TYLENOL AND MOTRIN NEEDED FOR PAIN FOLLOW UP WITH DR. PRINCE OR DR. NOBLES IN 1 WEEK FOR FURTHER CARE All discharge instructions reviewed with patient and/or family. Voiced understanding. Scripts Phenazopyridine HCl (Pyridium) 200 Mg Tablet 1 TAB PO TID for BLADDER DISCOMFORT, #15 TAB Prov: SHELBY MESA DO 06/16/17 Nitrofurantoin Monohyd/M-Cryst (Macrobid 100 mg Capsule) 100 Mg Capsule 100 MG PO BID, #30 CAP Prov: SHELBY MESA DO 06/16/17 SHELBY MESA DO Jun 16, 2017 23:29
[2017-06-16] MEDS ORDERED: PHENAZOPYRIDINE 100 MG (PYRIDIUM) TABLET PO ONE (23:30)
[2017-06-16] MEDS ORDERED: RX-NITROFURANTOIN 100 MG (MACROBID) CAP PPK#2 PO STA (23:30)
[2017-06-16] MEDS ORDERED: NITR-65 PO (23:33)
[2017-06-16] MEDS ORDERED: PHEN-640 PO (23:33)
[2017-06-16 23:34] VITALS: BP 125/71
== END 2017-06-16 23:34 | disposition home or self-care (01) ==
LOC: EDUNIT# 22:44 → ER 22:45
DX: N39.0 Urinary tract infection, site not specified (principal); E66.9 Obesity, unspecified; F17.210 Nicotine dependence, cigarettes, uncomplicated; Z87.2 Personal history of diseases of the skin and subcutaneous tissue; Z90.710 Acquired absence of both cervix and uterus; Z87.42 Personal history of other diseases of the female genital tract; Z90.49 Acquired absence of other specified parts of digestive tract; Z87.59 Personal history of other complications of pregnancy, childbirth and the puerperium; Z68.41 Body mass index [BMI] 40.0-44.9, adult
CPT/HCPCS: 81000; 87088; 87186; 99283

== ENCOUNTER 2017-06-20 20:52 | Emergency (ER) | payer MEDICAID ==
[~2017-06-20] VITALS: Ht 160 cm; Wt 108.9 kg
[~2017-06-20 20:52] MED LIST changes: +NAPR500T3 PO; -NAPR500T4 PO; +NITR-65 PO; +PHEN-640 PO
[2017-06-20 21:32] LABS: KETONES,URINE 1+ (NEGATIVE); LEUKOCYTE ESTERASE ,URINE 1+ (NEGATIVE); NITRITE,URINE POSITIVE (NEGATIVE); PH,URINE 5 (5-9); PROTEIN,URINE 2+ (NEGATIVE); UROBILINOGEN,URINE 4 MG/DL (NORMAL)
--- NOTE | 2017-06-20 21:38 | ED General ---
General Chief Complaint: General Problems/Pain Stated Complaint: LT LEG PAIN,SOB Nursing Triage Note: PT TO ED 8 W/ S.O. FOR C/O PAIN BEHIND LT KNEE, CHRONIC, WORSE LAST NOC. ALSO C/O BEING INCREASINGLY TIRED ET OCCASIONALLY UNABLE TO CATCH HER BREATH. NO OTHER C/O VOICED Nursing Sepsis Screen: No Definite Risk Source of Information: Patient Exam Limitations: No Limitations History of Present Illness Time Seen by Provider: 21:35 Initial Comments To ER with shortness of breath since yesterday with a productive cough. She also reports fatigue. She also reports pain behind her left knee at the lateral aspect of her thigh and her hip. No known injury. She is not on exogenous estrogen. She does smoke 1 pack of cigarettes per day. He does not have a personal history of DVT and she denies any unilateral leg swelling Severity: Moderate Associated Systoms: Cough Allergies and Home Medications Allergies Coded Allergies: No Known Drug Allergies (Unverified , 12/23/09) Home Medications Naproxen 500 Mg Tablet, 500 MG PO BID, #20 Prescribed by: SHELBY MESA on 04/09/17 2331 Nitrofurantoin Monohyd/M-Cryst 100 Mg Capsule, 100 MG PO BID, #30 Prescribed by: SHELBY MESA on 06/16/17 2333 Phenazopyridine HCl 200 Mg Tablet, 1 TAB PO TID, #15 Prescribed by: SHELBY MESA on 06/16/17 2333 Tramadol HCl 50 Mg Tablet, 50 MG PO Q4H, #20 Prescribed by: SHELBY MESA on 04/09/17 2331 Constitutional: see HPI EENTM: see HPI Respiratory: see HPI, short of breath Cardiovascular: no symptoms reported Genitourinary: no symptoms reported Musculoskeletal: see HPI Skin: no symptoms reported Psychiatric/Neurological: No Symptoms Reported Past Blompdx-Eemijc-Lkngrt Hx Patient Social History Alcohol Use: Denies Use Number of Drinks Today: AA Alcohol Beverage of Choice: Beer Recreational Drug Use: No Smoking Status: Current Everyday Smoker Type Used: Cigarettes Recent Foreign Travel: No Contact w/Someone Who Travel: No Recent Infectious Disease Expo: No Recent Hopitalizations: No Physical Abuse: No Sexual Abuse: No Mistreated: No Fear: No Immunizations Up To Date Tetanus Booster (TDap): Unknown Date of Influenza Vaccine: Jul 17, 2016 Seasonal Allergies Seasonal Allergies: No Surgeries History of Surgeries: Yes Surgeries: Abdominal, Appendectomy, Section, Hysterectomy, Oophorectomy Respiratory History of Respiratory Disorde: No Cardiovascular History of Cardiac Disorders: No Neurological History of Neurological Disord: No Reproductive System Hx 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: Yes (MENORRHAGIA; CERVICAL DYSPLASIA) Sexually Transmitted Disease: No HIV/AIDS: No Female 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: Menstrual Problems, 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 Genitourinary History of Genitourinary Disor: Yes Genitourinary Disorders: Bladder Infection, UTI-Chronic Gastrointestinal History of Gastrointestinal Di: No Musculoskeletal History of Musculoskeletal Dis: No Endocrine History of Endocrine Disorders: No (OBESITY) HEENT History of HEENT Disorders: No Hearing Impairment: Denies Cancer History of Cancer: No Psychosocial History of Psychiatric Problem: No Suicide Risk Score: 0 Integumentary History of Skin or Integumenta: Yes (ABDOMINAL WALL ABSCESS) Blood Transfusions History of Blood Disorders: No Adverse Reaction to a Blood Tr: No Family Medical History Family Medial History: Congestive heart failure 19 FATHER Family history: Cardiovascular disease 19 FATHER Family history: Diabetes mellitus 19 MOTHER Heart disease 19 MOTHER History of - respiratory disease 19 FATHER 19 MOTHER Kidney disease 19 MOTHER Physical Exam Vital Signs Vital Sign - Last 12Hours 06/20/17 20:57 Temp 99.1 Pulse 90 Resp 18 B/P (MAP) 132/87 Pulse Ox 94 O2 Delivery Room Air Capillary Refill : Less Than 3 Seconds General Appearance: No Apparent Distress, WD/WN Eyes: Bilateral Eye Normal Inspection, Bilateral Eye PERRL, Bilateral Eye EOMI HEENT: PERRL/EOMI, TMs Normal Neck: Full Range of Motion, Normal Inspection Respiratory: No Accessory Muscle Use, No Respiratory Distress Cardiovascular: Regular Rate, Rhythm, Normal Peripheral Pulses Gastrointestinal: Non Tender, Soft Extremity: Normal Capillary Refill, Normal Inspection Neurologic/Psychiatric: Alert, Oriented x3, No Motor/Sensory Deficits Skin: Normal Color, Warm/Dry Progress/Results/Core Measures Results/Orders Lab Results Laboratory Tests Test 06/20/17 21:06 06/20/17 21:36 Range/Units Urine Color ORANGE Urine Clarity SLIGHTLY CLOUDY Urine pH 5 5-9 Urine Specific [place] 1.025 H 1.016-1.022 Urine Protein 2+ H NEGATIVE Urine Glucose (UA) 3+ H NEGATIVE Urine Ketones 1+ H NEGATIVE Urine Nitrite POSITIVE H NEGATIVE Urine Bilirubin 1+ H NEGATIVE Urine Urobilinogen 4 H NORMAL MG/DL Urine Leukocyte Esterase 1+ H NEGATIVE Urine RBC (Auto) 1+ H NEGATIVE Urine RBC 0-2 /HPF Urine WBC RARE /HPF Urine Squamous Epithelial Cells 5-10 /HPF Urine Crystals NONE /LPF Urine Bacteria FEW H /HPF Urine Casts NONE /LPF Urine Mucus NEGATIVE /LPF Urine Culture Indicated NO White Blood Count 18.7 H 4.3-11.0 10^3/uL Red Blood Count 5.33 4.35-5.85 10^6/uL Hemoglobin 16.1 H 11.5-16.0 G/DL Hematocrit 48 35-52 % Mean Corpuscular Volume 89 80-99 FL Mean Corpuscular Hemoglobin 30 25-34 PG Mean Corpuscular Hemoglobin Concent 34 32-36 G/DL Red Cell Distribution Width 14.5 10.0-14.5 % Platelet Count 263 130-400 10^3/uL Mean Platelet Volume 10.6 H 7.4-10.4 FL Neutrophils (%) (Auto) 68 42-75 % Lymphocytes (%) (Auto) 24 12-44 % Monocytes (%) (Auto) 5 0-12 % Eosinophils (%) (Auto) 3 0-10 % Basophils (%) (Auto) 1 0-10 % Neutrophils # (Auto) 12.6 H 1.8-7.8 X 10^3 Lymphocytes # (Auto) 4.4 H 1.0-4.0 X 10^3 Monocytes # (Auto) 1.0 0.0-1.0 X 10^3 Eosinophils # (Auto) 0.6 H 0.0-0.3 10^3/uL Basophils # (Auto) 0.1 0.0-0.1 10^3/uL Neutrophils % (Manual) 71 % Lymphocytes % (Manual) 22 % Monocytes % (Manual) 2 % Eosinophils % (Manual) 5 % Basophils % (Manual) 0 % Band Neutrophils 0 % Blood Morphology Comment NORMAL D-Dimer 0.54 H 0.00-0.49 UG/ML Sodium Level 143 135-145 MMOL/L Potassium Level 3.5 L 3.6-5.0 MMOL/L Chloride Level 110 H 98-107 MMOL/L Carbon Dioxide Level 22 21-32 MMOL/L Anion Gap 11 5-14 MMOL/L Blood Urea Nitrogen 9 7-18 MG/DL Creatinine 0.69 0.60-1.30 MG/DL Estimat Glomerular Filtration Rate > 60 BUN/Creatinine Ratio 13 Glucose Level 162 H 70-105 MG/DL Calcium Level 8.6 8.5-10.1 MG/DL Total Bilirubin 0.3 0.1-1.0 MG/DL Aspartate Amino Transf (AST/SGOT) 14 5-34 U/L Alanine Aminotransferase (ALT/SGPT) 21 0-55 U/L Alkaline Phosphatase 81 40-136 U/L B-Type Natriuretic Peptide 16.7 <100.0 PG/ML Total Protein 6.3 L 6.4-8.2 GM/DL Albumin 3.5 3.2-4.5 GM/DL My Orders Orders - GLENN DIAZ APRN Cbc With Automated Diff (06/20/17 21:03) Comprehensive Metabolic Panel (06/20/17 21:03) Ua Culture If Indicated (06/20/17 21:03) Urine Bedside (06/20/17 21:03) Ekg Tracing (06/20/17 21:03) BNP (06/20/17 21:03) Fibrin Degradation Products (06/20/17 21:03) Chest Pa/Lat (2 View) (06/20/17 21:44) Manual Differential (06/20/17 21:36) Ct Angio Chest W (06/20/17 21:47) Us Venous Lower Ext Lt (06/20/17 21:59) Ketorolac Injection (Toradol Injection) (06/20/17 22:15) Ketorolac Injection (Toradol Injection) (06/20/17 21:56) Iohexol Injection (Omnipaque 350 Mg/Ml 1 (06/20/17 22:15) Ns (Ivpb) (Sodium Chloride 0.9% Ivpb Bag (06/20/17 22:15) Medications Given in ED Current Medications Medications Dose Ordered Sig/Addis Route Start Time Stop Time Status Last Admin Dose Admin Iohexol 100 ml ONCE ONCE IV 06/20/17 22:15 06/20/17 22:16 UNV 06/20/17 22:19 100 ML Ketorolac Tromethamine 30 mg ONCE ONCE IVP 06/20/17 22:15 06/20/17 22:16 DC 06/20/17 22:04 30 MG Sodium Chloride 100 ml ONCE ONCE IV 06/20/17 22:15 06/20/17 22:16 UNV 06/20/17 22:19 80 ML Vital Signs/I&O Vital Sign - Last 12Hours 06/20/17 20:57 Temp 99.1 Pulse 90 Resp 18 B/P (MAP) 132/87 Pulse Ox 94 O2 Delivery Room Air Blood Pressure Mean: 102 Point of Care Testing Urine -Bedside: Negative Departure Impression Impression: Primary Impression: Bronchitis Additional Impression: Left leg pain Disposition: HOME, SELF-CARE Condition: Stable Departure-Patient Inst. Decision time for Depature: 22:32 Referrals: MELANIE PRINCE DO (PCP/Family) Primary Care Physician Patient Instructions: Acute Bronchitis in Adults Add. Discharge Instructions: 1. Medication as directed 2. Call Dr. Dr. Prince tomorrow to make an appointment to be seen later this week for recheck All discharge instructions reviewed with patient and/or family. Voiced understanding. Scripts Cefuroxime Axetil (Cefuroxime) 250 Mg Tablet 250 MG PO BID, #10 TAB Prov: GLENN DIAZ APRN 06/20/17 GLENN DIAZ APRN Jun 20, 2017 21:37
[2017-06-20 21:39] LABS: BILIRUBIN,URINE 1+ (NEGATIVE)
[2017-06-20 21:42] LABS: BASOPHILS # (AUTO) 0.1 10^3/uL (0.0-0.1); BASOPHILS % (AUTO) 1 % (0-10); EOSINOPHILS # (AUTO) 0.6 10^3/uL (0.0-0.3); EOSINOPHILS % (AUTO) 3 % (0-10); LYMPHOCYTES # (AUTO) 4.4 X 10^3 (1.0-4.0); LYMPHOCYTES % (AUTO) 24 % (12-44); MEAN CORPUSCULAR HEMOGLOBIN 30 PG (25-34); MEAN CORPUSCULAR HGB CONC 34 G/DL (32-36); MEAN CORPUSCULAR VOLUME 89 FL (80-99); MEAN PLATELET VOLUME 10.6 FL (7.4-10.4); MONOCYTES % (AUTO) 5 % (0-12); NEUTROPHILS # (AUTO) 12.6 X 10^3 (1.8-7.8); NEUTROPHILS % (AUTO) 68 % (42-75); PLATELET COUNT 263 10^3/uL (130-400); RED BLOOD COUNT 5.33 10^6/uL (4.35-5.85); RED CELL DISTRIBUTION WIDTH 14.5 % (10.0-14.5); WHITE BLOOD COUNT 18.7 10^3/uL (4.3-11.0)
[2017-06-20 21:44] LABS: WBC,URINE RARE /HPF
[2017-06-20] MEDS ORDERED: KETOROLAC 30 MG/ML VIAL ONE (21:56)
[2017-06-20 22:07] LABS: ALANINE AMINOTRANSFERASE 21 U/L (0-55); ALBUMIN 3.5 GM/DL (3.2-4.5); ANION GAP 11 MMOL/L (5-14); ASPARTATE AMINO TRANSFERASE 14 U/L (5-34); BILIRUBIN,TOTAL 0.3 MG/DL (0.1-1.0); BLOOD UREA NITROGEN 9 MG/DL (7-18); BUN/CREATININE RATIO 13; CALCIUM 8.6 MG/DL (8.5-10.1); CARBON DIOXIDE 22 MMOL/L (21-32); CHLORIDE 110 MMOL/L (98-107); CREATININE SERUM 0.69 MG/DL (0.60-1.30); GFR ESTIMATED > 60; GLUCOSE 162 MG/DL (70-105); POTASSIUM 3.5 MMOL/L (3.6-5.0); SODIUM 143 MMOL/L (135-145); TOTAL PROTEIN 6.3 GM/DL (6.4-8.2)
[2017-06-20 22:09] LABS: BAND NEUTROPHILS 0 %; BASOPHILS % (MANUAL) 0 %; EOSINOPHILS % (MANUAL) 5 %; LYMPHOCYTES % (MANUAL) 22 %; NEUTROPHILS % (MANUAL) 71 %
[2017-06-20] MEDS ORDERED: IOHEXOL 350 MG/ML 100 ML (OMNIPAQUE 350) VIAL IV ONE (22:15)
[2017-06-20] MEDS ORDERED: NS 100 ML (IVPB) BAG IV ONE (22:15)
[2017-06-20] MEDS ORDERED: KETOROLAC 30 MG/ML VIAL IVP ONE (22:15)
[2017-06-20] MEDS ORDERED: CEFU250T80 PO (22:32)
[2017-06-20] MEDS ORDERED: RX-ALBUTEROL INHALER (PROAIR) 8 GM IH STA (22:33)
[2017-06-20] MEDS ORDERED: CEFDINIR 300 MG (OMNICEF) CAP PO ONE (22:45)
[2017-06-20 23:28] VITALS: BP 126/86
--- NOTE | 2017-06-21 05:48 | Diagnostic Imaging Report ---
PROCEDURE: US left lower extremity venous. INDICATION: Left leg pain EXAMINATION: Grayscale and color Doppler evaluation of the deep veins of the left lower extremity were performed with waveform analysis. FINDINGS: Continuous venous flow is present. No intraluminal filling defect is identified. There is normal compressibility and response to augmentation. No abnormal perivascular fluid collection is identified. IMPRESSION: No ultrasound evidence of left lower extremity deep venous thrombosis. Dictated by: Dictated on workstation # [id number]
--- NOTE | 2017-06-21 06:03 | Diagnostic Imaging Report ---
INDICATION: Dyspnea PA and lateral views of the chest are obtained. Comparison is made to study of 07/16/2014. Overall heart size and pulmonary vascularity are within normal limits. There is slight increased density now seen throughout the lower half of the lungs which may be due to mild edema or pneumonitis. No consolidation, pneumothorax or significant pleural fluid is seen. IMPRESSION: Mild edema and/or pneumonitis involving the lower half of the lungs. Otherwise, no acute abnormality is detected. Dictated by: Dictated on workstation # [id number]
--- NOTE | 2017-06-21 06:07 | Diagnostic Imaging Report ---
PROCEDURE: CT angiography of the chest with contrast. TECHNIQUE: Multiple contiguous axial images were obtained through the chest after uneventful bolus administration of intravenous contrast. Reconstructed CTA MIP acquisitions were also performed. INDICATION: Dyspnea in patient with bilateral lower extremity pain There is suboptimal bolus timing which limits evaluation of the pulmonary arteries. No intraluminal filling defect is identified. There is mild groundglass opacity seen within the lower lobes with lesser involvement of the remainder of both lungs. No focal consolidation is identified. There is no significant pleural fluid. No pericardial effusion is identified. There are mildly prominent mediastinal and right hilar lymph nodes measuring up to 1.4 x 1.2 cm in the right paratracheal region and 1.6 x 1.2 cm in the right hilum. Upper abdominal sections reveal nodules in the left upper quadrant of the abdomen which are likely related to the left adrenal gland. Largest reaches 2.8 cm in diameter. These were present on the abdominal CT study of 07/17/2014. IMPRESSION: Definite pulmonary embolism is identified although bolus timing does limit evaluation. There are persistent nodules in the region of left adrenal gland. No other acute abnormality is identified. Dictated by: Dictated on workstation # [id number]
== END 2017-06-20 23:28 | disposition home or self-care (01) ==
LOC: EDUNIT# 20:52 → ER 20:53
DX: J40 Bronchitis, not specified as acute or chronic (principal); M79.605 Pain in left leg; E66.9 Obesity, unspecified; F17.210 Nicotine dependence, cigarettes, uncomplicated; Z87.440 Personal history of urinary (tract) infections; Z90.710 Acquired absence of both cervix and uterus; Z87.42 Personal history of other diseases of the female genital tract; Z90.49 Acquired absence of other specified parts of digestive tract
CPT/HCPCS: 36415; 71020; 71275; 80053; 81000; 83880; 84703; 85007; 85027; 85379; 93005; 96374

== ENCOUNTER → 2017-06-28 | Outpatient (CLI) | payer MEDICAID ==
[~2017-06-28] MED LIST changes: +CEFU250T80 PO
[2017-06-28 13:24] LABS: BASOPHILS # (AUTO) 0.1 10^3/uL (0.0-0.1); BASOPHILS % (AUTO) 1 % (0-10); EOSINOPHILS # (AUTO) 0.6 10^3/uL (0.0-0.3); EOSINOPHILS % (AUTO) 4 % (0-10); LYMPHOCYTES # (AUTO) 4.6 X 10^3 (1.0-4.0); LYMPHOCYTES % (AUTO) 29 % (12-44); MEAN CORPUSCULAR HEMOGLOBIN 30 PG (25-34); MEAN CORPUSCULAR HGB CONC 34 G/DL (32-36); MEAN CORPUSCULAR VOLUME 89 FL (80-99); MEAN PLATELET VOLUME 10.1 FL (7.4-10.4); MONOCYTES # (AUTO) 0.9 X 10^3 (0.0-1.0); MONOCYTES % (AUTO) 6 % (0-12); NEUTROPHILS # (AUTO) 9.6 X 10^3 (1.8-7.8); NEUTROPHILS % (AUTO) 61 % (42-75); PLATELET COUNT 278 10^3/uL (130-400); RED BLOOD COUNT 5.46 10^6/uL (4.35-5.85); RED CELL DISTRIBUTION WIDTH 14.4 % (10.0-14.5); WHITE BLOOD COUNT 15.8 10^3/uL (4.3-11.0)
--- NOTE | 2017-06-28 13:51 | Diagnostic Imaging Report ---
PA and lateral views of the chest Indication: Cough Comparison 06/20/17 Findings: The lungs are clear with resolution of previously seen basilar infiltrates. The heart size is normal. There is no effusion or pneumothorax The mediastinum and sheila appear unremarkable. Impression: Unremarkable study. Dictated by: Dictated on workstation # [id number]
[2017-06-28 13:52] LABS: BAND NEUTROPHILS 0 %; BASOPHILS % (MANUAL) 1 %; EOSINOPHILS % (MANUAL) 7 %; LYMPHOCYTES % (MANUAL) 36 %; NEUTROPHILS % (MANUAL) 54 %
== END ==
LOC: RAD 12:51
PROVIDERS: ATTEND Family Medicine
DX: R05 Cough (principal); R09.89 Other specified symptoms and signs involving the circulatory and respiratory systems
CPT/HCPCS: 36415; 71020; 85007; 85027

== ENCOUNTER 2017-11-27 20:05 | Emergency (ER) | payer MEDICAID ==
[~2017-11-27] VITALS: Ht 160 cm; Wt 109.1 kg
[~2017-11-27 20:05] MED LIST changes: +HYDR-34 PO; -HYDR-3816 PO; -NAPR500T3 PO; +NAPR500T4 PO
[2017-11-27] MEDS ORDERED: KETOROLAC 30 MG/ML VIAL IVP ONE (20:45)
[2017-11-27] MEDS ORDERED: NS IV 1000 ML 1,000 ML ONE (20:47)
--- NOTE | 2017-11-27 20:47 | ED Abdominal Pain ---
General Chief Complaint: Abdominal/GI Problems Stated Complaint: SEVERE ABD AND PACK PAIN Source of Information: Patient Exam Limitations: No Limitations History of Present Illness Date Seen by Provider: Nov 27, 2017 Time Seen by Provider: 20:45 Initial Comments To ER with epigastric and right upper quadrant abdominal pain. Began after eating some chicken about 5 PM this evening. She's been having pain after eating for about the past week. She also has some diarrhea. Timing/Duration: 1 Week Severity/Quality: Moderate Location: RUQ, Epigastric Radiation: Back Activities at Onset: None Allergies and Home Medications Allergies Coded Allergies: No Known Drug Allergies (Unverified , 12/23/09) Home Medications No Active Prescriptions or Reported Meds Review of Systems Constitutional: see HPI EENTM: No Symptoms Reported Respiratory: No Symptoms Reported Gastrointestinal: See HPI, Abdominal Pain Genitourinary: No Symptoms Reported Musculoskeletal: no symptoms reported Skin: no symptoms reported Psychiatric/Neurological: No Symptoms Reported Past Lkbgxfn-Uumbcw-Ujgaop Hx Patient Social History Alcohol Beverage of Choice: Beer Type Used: Cigarettes Recent Hopitalizations: No Immunizations Up To Date Tetanus Booster (TDap): Unknown Date of Influenza Vaccine: Jul 17, 2016 Seasonal Allergies Seasonal Allergies: No Surgeries History of Surgeries: Yes Surgeries: Abdominal, Appendectomy, Section, Hysterectomy, Oophorectomy Respiratory History of Respiratory Disorde: No Cardiovascular History of Cardiac Disorders: No Neurological History of Neurological Disord: No Reproductive System Hx 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: Yes (MENORRHAGIA; CERVICAL DYSPLASIA) Sexually Transmitted Disease: No HIV/AIDS: No Female 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: Menstrual Problems, Ovarian Cyst [employer] History: Hysterectomy Genitourinary History of Genitourinary Disor: Yes Genitourinary Disorders: Bladder Infection, UTI-Chronic Gastrointestinal History of Gastrointestinal Di: No Musculoskeletal History of Musculoskeletal Dis: No Endocrine History of Endocrine Disorders: No (OBESITY) HEENT History of HEENT Disorders: No Hearing Impairment: Denies Cancer History of Cancer: No Psychosocial History of Psychiatric Problem: No Integumentary History of Skin or Integumenta: Yes (ABDOMINAL WALL ABSCESS) Blood Transfusions History of Blood Disorders: No Adverse Reaction to a Blood Tr: No Family Medical History Family Medial History: Congestive heart failure 19 FATHER Family history: Cardiovascular disease 19 FATHER Family history: Diabetes mellitus 19 MOTHER Heart disease 19 MOTHER History of - respiratory disease 19 FATHER 19 MOTHER Kidney disease 19 MOTHER Physical Exam Vital Signs VS - Last 72 Hours, by Label 2/11/18 2/11/18 2/11/18 20:37 20:58 22:03 Temp 97.4 97.4 97.4 Pulse 79 Resp 18 B/P (MAP) 145/101 (116) Pulse Ox 95 O2 Delivery Room Air Capillary Refill : General Appearance: WD/WN, no apparent distress HEENT: PERRL/EOMI, normal ENT inspection Respiratory: no respiratory distress, no accessory muscle use Cardiovascular: regular rate, rhythm, no murmur Gastrointestinal: normal bowel sounds, soft, tenderness (epigastric and right upper quadrant) Extremities: normal range of motion, non-tender, normal inspection Neurologic/Psychiatric: alert, normal mood/affect, oriented x 3 Skin: normal color, warm/dry Progress/Results/Core Measures Results/Orders Lab Results Laboratory Tests Test 11/27/17 20:55 11/27/17 21:00 Range/Units Urine Color YELLOW Urine Clarity CLEAR Urine pH 5 5-9 Urine Specific Guild 1.025 H 1.016-1.022 Urine Protein 2+ H NEGATIVE Urine Glucose (UA) NEGATIVE NEGATIVE Urine Ketones NEGATIVE NEGATIVE Urine Nitrite NEGATIVE NEGATIVE Urine Bilirubin NEGATIVE NEGATIVE Urine Urobilinogen 1 NORMAL MG/DL Urine Leukocyte Esterase 1+ H NEGATIVE Urine RBC (Auto) NEGATIVE NEGATIVE Urine RBC NONE /HPF Urine WBC 0-2 /HPF Urine Squamous Epithelial Cells 5-10 /HPF Urine Crystals NONE /LPF Urine Bacteria MODERATE H /HPF Urine Casts NONE /LPF Urine Mucus NEGATIVE /LPF Urine Culture Indicated NO White Blood Count 16.8 H 4.3-11.0 10^3/uL Red Blood Count 5.18 4.35-5.85 10^6/uL Hemoglobin 15.6 11.5-16.0 G/DL Hematocrit 46 35-52 % Mean Corpuscular Volume 89 80-99 FL Mean Corpuscular Hemoglobin 30 25-34 PG Mean Corpuscular Hemoglobin Concent 34 32-36 G/DL Red Cell Distribution Width 14.6 H 10.0-14.5 % Platelet Count 254 130-400 10^3/uL Mean Platelet Volume 10.7 H 7.4-10.4 FL Neutrophils (%) (Auto) 60 42-75 % Lymphocytes (%) (Auto) 30 12-44 % Monocytes (%) (Auto) 6 0-12 % Eosinophils (%) (Auto) 4 0-10 % Basophils (%) (Auto) 1 0-10 % Neutrophils # (Auto) 10.1 H 1.8-7.8 X 10^3 Lymphocytes # (Auto) 5.0 H 1.0-4.0 X 10^3 Monocytes # (Auto) 0.9 0.0-1.0 X 10^3 Eosinophils # (Auto) 0.7 H 0.0-0.3 10^3/uL Basophils # (Auto) 0.1 0.0-0.1 10^3/uL Neutrophils % (Manual) 52 % Lymphocytes % (Manual) 45 % Monocytes % (Manual) 1 % Eosinophils % (Manual) 2 % Basophils % (Manual) 0 % Band Neutrophils 0 % Blood Morphology Comment NORMAL Sodium Level 145 135-145 MMOL/L Potassium Level 3.7 3.6-5.0 MMOL/L Chloride Level 109 H 98-107 MMOL/L Carbon Dioxide Level 24 21-32 MMOL/L Anion Gap 12 5-14 MMOL/L Blood Urea Nitrogen 12 7-18 MG/DL Creatinine 0.71 0.60-1.30 MG/DL Estimat Glomerular Filtration Rate > 60 BUN/Creatinine Ratio 17 Glucose Level 120 H 70-105 MG/DL Calcium Level 8.7 8.5-10.1 MG/DL Total Bilirubin 0.2 0.1-1.0 MG/DL Aspartate Amino Transf (AST/SGOT) 14 5-34 U/L Alanine Aminotransferase (ALT/SGPT) 21 0-55 U/L Alkaline Phosphatase 84 40-136 U/L Total Protein 6.6 6.4-8.2 GM/DL Albumin 3.5 3.2-4.5 GM/DL Lipase 16 8-78 U/L My Orders Orders - GLENN DIAZ APRN Ua Culture If Indicated (11/27/17 20:39) Cbc With Automated Diff (11/27/17 20:44) Comprehensive Metabolic Panel (11/27/17 20:44) Lipase (11/27/17 20:44) Saline Lock/Iv-Start (11/27/17 20:44) Ketorolac Injection (Toradol Injection) (11/27/17 20:45) Ct Abdomen/Pelvis W (11/27/17 20:45) Iohexol Injection (Omnipaque 350 Mg/Ml 1 (11/27/17 21:00) Ns (Ivpb) (Sodium Chloride 0.9%) (11/27/17 21:00) Pharmacy Communication (Pharmacy Communi (11/27/17 20:47) Ns Iv 1000 Ml (Sodium Chloride 0.9%) (11/27/17 20:47) Ns Iv 1000 Ml (Sodium Chloride 0.9%) (11/27/17 21:15) Manual Differential (11/27/17 21:00) Fentanyl Injection (Sublimaze Injection (11/27/17 22:00) Medications Given in ED Current Medications Medications Dose Ordered Sig/Addis Route Start Time Stop Time Status Last Admin Dose Admin Fentanyl Citrate 50 mcg ONCE ONCE IVP 11/27/17 22:00 11/27/17 22:01 DC 11/27/17 22:03 50 MCG Ketorolac Tromethamine 30 mg ONCE ONCE IVP 11/27/17 20:45 11/27/17 20:46 DC 11/27/17 20:58 30 MG Sodium Chloride 1,000 ml @ STK-MED ONCE .ROUTE 11/27/17 20:47 11/27/17 20:50 DC 11/27/17 20:59 0 MLS/HR Vital Signs/I&O Vital Sign - Last 12Hours 11/27/17 11/27/17 11/27/17 20:37 20:58 22:03 Temp 97.4 97.4 97.4 Pulse 79 Resp 18 B/P (MAP) 145/101 (116) Pulse Ox 95 O2 Delivery Room Air Diagnostic Imaging Diagonstic Imaging: CT Plain Films/CT/US/NM/MRI: chest Comments NAME: KELLY CUEVA [facility] REC#: [id number] PT STATUS: REG ER : 1975 PHYSICIAN: GLENN DIAZ APRN ADMIT DATE: 11/27/17/ER Draft Date of Exam:11/27/17 CT ABDOMEN/PELVIS W PROCEDURE: CT abdomen and pelvis with contrast. TECHNIQUE: Multiple contiguous axial images were obtained through the abdomen and pelvis after administration of intravenous contrast. INDICATION: Severe abdominal and back pain There are fatty infiltrates of the liver. The gallbladder and bile ducts are normal. The spleen, pancreas and right adrenal gland are normal. There is a 2.6 cm low density left adrenal gland present which is likely a nonfunctioning adenoma and was present on a CT from 06/20/2017. The kidneys, ureters and bladder are normal. No acute bowel abnormality is seen. There is no free intraperitoneal air or fluid. There is no acute bony abnormality. IMPRESSION: No acute abnormality is seen. There are fatty changes of the liver. There is a low-density left adrenal gland lesion present which is stable compared to the prior CT. Dictated on workstation # [id number] Dict: 11/27/172130 Trans: 11/27/172134 [facility] [id number] Interpreted by: AZAM FERNANDEZ MD Electronically signed by: Departure Communication (Admissions) Progress Notes 2216-a few minutes after the fentanyl was given patient developed some shortness of breath, tightness sensation in her chest," feeling funky" tearful and anxious appearing. She was observed and improved over the course of 2 or 3 minutes and symptoms subsided. Though this was not a true allergy but rather an adverse reaction I will add this to her allergy list so that she does not receive again unless there are no other options. Impression Impression: Primary Impression: Biliary colic Disposition: HOME, SELF-CARE Condition: Stable Departure-Patient Inst. Decision time for Depature: 21:45 Referrals: MELANIE PRINCE DO (PCP/Family) Primary Care Physician Patient Instructions: Acute Abdomen (Belly Pain) Add. Discharge Instructions: 1. Your symptoms warrant further workup. This should include a gallbladderl ultrasound and possibly a HIDA scan. Call your doctor tomorrow to make an appointment to be seen so that these can be ordered. In the meantime follow a bland low fat low dairy product diet. Return to ER for any fevers, worsening symptoms or other concerns. Scripts No Active Prescriptions or Reported Meds Copy Copies To 1: MELANIE PRINCE PETER J APRN Nov 27, 2017 20:47
[2017-11-27] MEDS ORDERED: NS 250 ML (IVPB) BAG IV ONE (21:00)
[2017-11-27] MEDS ORDERED: IOHEXOL 350 MG/ML 100 ML (OMNIPAQUE 350) VIAL IV ONE (21:00)
[2017-11-27 21:07] LABS: BILIRUBIN,URINE NEGATIVE (NEGATIVE); CLARITY,URINE CLEAR; COLOR,URINE YELLOW; GLUCOSE, URINE (UA) NEGATIVE (NEGATIVE); KETONES,URINE NEGATIVE (NEGATIVE); LEUKOCYTE ESTERASE ,URINE 1+ (NEGATIVE); NITRITE,URINE NEGATIVE (NEGATIVE); PH,URINE 5 (5-9); PROTEIN,URINE 2+ (NEGATIVE); UROBILINOGEN,URINE 1 MG/DL (NORMAL)
[2017-11-27 21:08] LABS: BASOPHILS # (AUTO) 0.1 10^3/uL (0.0-0.1); BASOPHILS % (AUTO) 1 % (0-10); EOSINOPHILS # (AUTO) 0.7 10^3/uL (0.0-0.3); EOSINOPHILS % (AUTO) 4 % (0-10); HEMATOCRIT 46 % (35-52); HEMOGLOBIN 15.6 G/DL (11.5-16.0); LYMPHOCYTES % (AUTO) 30 % (12-44); MEAN CORPUSCULAR HEMOGLOBIN 30 PG (25-34); MEAN CORPUSCULAR HGB CONC 34 G/DL (32-36); MEAN CORPUSCULAR VOLUME 89 FL (80-99); MEAN PLATELET VOLUME 10.7 FL (7.4-10.4); MONOCYTES # (AUTO) 0.9 X 10^3 (0.0-1.0); MONOCYTES % (AUTO) 6 % (0-12); NEUTROPHILS # (AUTO) 10.1 X 10^3 (1.8-7.8); NEUTROPHILS % (AUTO) 60 % (42-75); PLATELET COUNT 254 10^3/uL (130-400); RED BLOOD COUNT 5.18 10^6/uL (4.35-5.85); RED CELL DISTRIBUTION WIDTH 14.6 % (10.0-14.5); WHITE BLOOD COUNT 16.8 10^3/uL (4.3-11.0)
[2017-11-27] MEDS ORDERED: NS IV 1000 ML 1,000 ML IV SCH (21:15)
[2017-11-27 21:17] LABS: BACTERIA,URINE MODERATE /HPF; WBC,URINE 0-2 /HPF
[2017-11-27 21:35] LABS: ALANINE AMINOTRANSFERASE 21 U/L (0-55); ALBUMIN 3.5 GM/DL (3.2-4.5); ALKALINE PHOSPHATASE 84 U/L (40-136); BAND NEUTROPHILS 0 %; BASOPHILS % (MANUAL) 0 %; BILIRUBIN,TOTAL 0.2 MG/DL (0.1-1.0); BUN/CREATININE RATIO 17; CALCIUM 8.7 MG/DL (8.5-10.1); CARBON DIOXIDE 24 MMOL/L (21-32); CHLORIDE 109 MMOL/L (98-107); CREATININE SERUM 0.71 MG/DL (0.60-1.30); EOSINOPHILS % (MANUAL) 2 %; GFR ESTIMATED > 60; GLUCOSE 120 MG/DL (70-105); LIPASE 16 U/L (8-78); LYMPHOCYTES % (MANUAL) 45 %; MONOCYTES % (MANUAL) 1 %; NEUTROPHILS % (MANUAL) 52 %; POTASSIUM 3.7 MMOL/L (3.6-5.0); SODIUM 145 MMOL/L (135-145); TOTAL PROTEIN 6.6 GM/DL (6.4-8.2)
--- NOTE | 2017-11-27 21:35 | Diagnostic Imaging Report ---
PROCEDURE: CT abdomen and pelvis with contrast. TECHNIQUE: Multiple contiguous axial images were obtained through the abdomen and pelvis after administration of intravenous contrast. INDICATION: Severe abdominal and back pain There are fatty infiltrates of the liver. The gallbladder and bile ducts are normal. The spleen, pancreas and right adrenal gland are normal. There is a 2.6 cm low density left adrenal gland present which is likely a nonfunctioning adenoma and was present on a CT from 06/20/2017. The kidneys, ureters and bladder are normal. No acute bowel abnormality is seen. There is no free intraperitoneal air or fluid. There is no acute bony abnormality. IMPRESSION: No acute abnormality is seen. There are fatty changes of the liver. There is a low-density left adrenal gland lesion present which is stable compared to the prior CT. Dictated by: Dictated on workstation # [id number]
[2017-11-27 21:36] LABS: RBC MORPH NORMAL
[2017-11-27] MEDS ORDERED: fentaNYL INJECTION 100 MCG/2 ML AMP IVP ONE (22:00)
[2017-11-27 22:50] VITALS: BP 136/91
== END 2017-11-27 22:50 | disposition home or self-care (01) ==
LOC: EDUNIT# 20:05 → ER 20:07
DX: K80.50 Calculus of bile duct without cholangitis or cholecystitis without obstruction (principal); E66.9 Obesity, unspecified; Z68.41 Body mass index [BMI] 40.0-44.9, adult; Z90.710 Acquired absence of both cervix and uterus; Z87.42 Personal history of other diseases of the female genital tract; Z90.49 Acquired absence of other specified parts of digestive tract; Z87.59 Personal history of other complications of pregnancy, childbirth and the puerperium
CPT/HCPCS: 36415; 74177; 80053; 81000; 83690; 85007; 85027; 96374; 96375

== ENCOUNTER → 2017-11-29 | Outpatient (CLI) | payer MEDICAID ==
--- NOTE | 2017-11-29 08:58 | Diagnostic Imaging Report ---
PROCEDURE: US Gallbladder. TECHNIQUE: Multiple real-time grayscale images were obtained over the right upper quadrant in various projections. INDICATION: Right upper quadrant abdominal pain. COMPARISON: CT abdomen dated 11/27/2017. FINDINGS: Liver is enlarged as it measures 20 cm in length. Liver also demonstrates diffuse hyperechoic appearance to the parenchyma. No focal hepatic mass type lesions are seen. There is no sonographic evidence of intra or extrahepatic ductal dilatation. Common bile duct is within normal limits at 4 mm Gallbladder is visualized. There is a single large mobile stone which measures approximately 1.9 cm. There is no gallbladder wall thickening or appreciable pericholecystic free fluid. Visualized portions of head and proximal body of pancreas unremarkable. Distal body and tail are obscured secondary to overlying bowel gas. Right kidney has a normal appearance and measures 12 cm in length. There is no sonographic evidence of mass, hydronephrosis, nor calculi. There is no ascites. Visualized portions of abdominal aorta and IVC are unremarkable. IMPRESSION: 1. Cholelithiasis, but no sonographic evidence of acute cholecystitis. 2. Hepatomegaly and hepatic steatosis. Dictated by: Dictated on workstation # [id number]
== END ==
LOC: RAD 07:51
PROVIDERS: ATTEND Family Medicine
DX: K76.0 Fatty (change of) liver, not elsewhere classified (principal); K80.20 Calculus of gallbladder without cholecystitis without obstruction
CPT/HCPCS: 76705

== ENCOUNTER 2017-12-08 07:12 | Outpatient (CLI) | payer MEDICAID ==
[~2017-12-08] VITALS: Ht 160 cm; Wt 109.1 kg
[~2017-12-08 07:12] MED LIST changes: +NAPR-915 PO; -NAPR500T4 PO
== END 2017-12-08 15:42 ==
LOC: PREOP 07:12
PROVIDERS: ATTEND Surgery
DX: Z01.818 Encounter for other preprocedural examination (principal); K80.20 Calculus of gallbladder without cholecystitis without obstruction

== ENCOUNTER 2017-12-12 08:36 | Day surgery (SDC) | payer MEDICAID ==
[~2017-12-12] VITALS: Ht 160 cm; Wt 129.0 kg
--- OUTSIDE RECORDS SUMMARY | 2017-12-12 08:41 | XMS REPORT | Continuity of Care Document ---
Author Author [facility] Organization [facility] Address Unknown Phone Unavailable Allergies Active Description Code Type Severity Reaction Onset Reported/Identified Relationship to Patient Clinical Status Yes No Known Drug Allergies [id number] Drug Allergy Mild N/A 12/23/2009 Yes fentanyl [id number] Drug Allergy Mild N/A 11/27/2017 Medications There is no data. Problems Date Dx Coded Attending Type Code Diagnosis Diagnosed By 09/06/2014 KERVIN CHRISTIAN, STEFANY Mejia Ot 709.9 09/09/2014 KERVIN CHRISTIAN, STEFANY Mejia Ot 709.9 09/10/2014 KERVIN CHRISTIAN, STEFANY Mejia Ot 709.9 09/16/2014 KERVIN CHRISTIAN, STEFANY Mejia Ot 709.9 06/19/2016 KRISTINA REESE MD Ot F17.210 NICOTINE DEPENDENCE, CIGARETTES, UNCOMPL 06/19/2016 KRISTINA REESE MD Ot M54.16 RADICULOPATHY, LUMBAR REGION 06/19/2016 KRISTINA REESE MD Ot S86.111A STRAIN MUSC/TEND POST GRP AT LOW LEG LEV 06/19/2016 KRISTINA REESE MD Ot X58.XXXA EXPOSURE TO OTHER SPECIFIED FACTORS, INI 06/19/2016 KRISTINA REESE MD Ot Y99.8 OTHER EXTERNAL CAUSE STATUS 06/22/2016 KRISTINA REESE MD Ot F17.210 NICOTINE DEPENDENCE, CIGARETTES, UNCOMPL 06/22/2016 KRISTINA REESE MD Ot M54.16 RADICULOPATHY, LUMBAR REGION 06/22/2016 KRISTINA REESE MD Ot S86.111A STRAIN MUSC/TEND POST GRP AT LOW LEG LEV 06/22/2016 KRISTINA REESE MD Ot X58.XXXA EXPOSURE TO OTHER SPECIFIED FACTORS, INI 06/22/2016 KRISTINA REESE MD Ot Y99.8 OTHER EXTERNAL CAUSE STATUS 06/22/2016 KRISTINA REESE MD Ot F17.210 NICOTINE DEPENDENCE, CIGARETTES, UNCOMPL 06/22/2016 KRISTINA REESE MD Ot M54.16 RADICULOPATHY, LUMBAR REGION 06/22/2016 KRISTINA REESE MD Ot S86.111A STRAIN MUSC/TEND POST GRP AT LOW LEG LEV 06/22/2016 KRISTINA REESE MD Ot X58.XXXA EXPOSURE TO OTHER SPECIFIED FACTORS, INI 06/22/2016 KRISTINA REESE MD Ot Y99.8 OTHER EXTERNAL CAUSE STATUS 07/06/2016 GLENN DIAZ STEEP TENDER Ot F17.210 NICOTINE DEPENDENCE, CIGARETTES, UNCOMPL 07/06/2016 GLENN DIAZ STEEP TENDER Ot N39.0 URINARY TRACT INFECTION, SITE NOT SPECIF 07/06/2016 GLENN DIAZ STEEP TENDER Ot R10.2 PELVIC AND PERINEAL PAIN 07/06/2016 GLENN DIAZ STEEP TENDER Ot R19.09 OTHER INTRA-ABDOMINAL AND PELVIC SWELLIN 07/07/2016 GLENN DIAZ STEEP TENDER Ot F17.210 NICOTINE DEPENDENCE, CIGARETTES, UNCOMPL 07/07/2016 GLENN DIAZ STEEP TENDER Ot N39.0 URINARY TRACT INFECTION, SITE NOT SPECIF 07/07/2016 GLENN DIAZ STEEP TENDER Ot R10.2 PELVIC AND PERINEAL PAIN 07/07/2016 GLENN DIAZ STEEP TENDER Ot R19.09 OTHER INTRA-ABDOMINAL AND PELVIC SWELLIN 07/23/2016 NOBLES DO OXANA C Ot N83.201 UNSPECIFIED OVARIAN CYST, RIGHT SIDE 07/23/2016 NOBLES DO OXANA C Ot N83.202 UNSPECIFIED OVARIAN CYST, LEFT SIDE 07/23/2016 NOBLES DO OXANA C Ot N92.0 EXCESSIVE AND FREQUENT MENSTRUATION WITH 07/23/2016 NOBLES DO OXANA C Ot Z01.812 ENCOUNTER FOR PREPROCEDURAL LABORATORY E 07/23/2016 NOBLES DO OXANA C Ot Z11.2 ENCOUNTER FOR SCREENING FOR OTHER BACTER 07/26/2016 NOBLES DO OXANA C Ot N83.201 UNSPECIFIED OVARIAN CYST, RIGHT SIDE 07/26/2016 NOBLES DO OXANA C Ot N83.202 UNSPECIFIED OVARIAN CYST, LEFT SIDE 07/26/2016 NOBLES DO OXANA C Ot N92.0 EXCESSIVE AND FREQUENT MENSTRUATION WITH 07/26/2016 NOBLES DO, OXANA C Ot Z01.812 ENCOUNTER FOR PREPROCEDURAL LABORATORY E 07/26/2016 NOBLES DO OXANA C Ot Z11.2 ENCOUNTER FOR SCREENING FOR OTHER BACTER 07/28/2016 NOBLES DO OXANA C Ot K66.0 PERITONEAL ADHESIONS (POSTPROCEDURAL) (P 07/28/2016 NOBLES DO OXANA C Ot N72 INFLAMMATORY DISEASE OF CERVIX UTERI 07/28/2016 NOBLES DO, OXANA C Ot N80.0 ENDOMETRIOSIS OF UTERUS 07/28/2016 NOBLES DO, OXANA C Ot N80.1 ENDOMETRIOSIS OF OVARY [...] Ot Z23 ENCOUNTER FOR IMMUNIZATION 09/02/2016 NOBLES DO, OXANA C Ot K66.0 PERITONEAL ADHESIONS (POSTPROCEDURAL) (P 09/02/2016 NOBLES DO OXANA C Ot N72 INFLAMMATORY DISEASE OF CERVIX UTERI 09/02/2016 NOBLES DO, OXANA C Ot N80.0 ENDOMETRIOSIS OF UTERUS 09/02/2016 NOBLES DO, OXANA C Ot N80.1 ENDOMETRIOSIS OF OVARY 09/02/2016 NOBLES DO, OXANA C Ot N83.201 UNSPECIFIED OVARIAN CYST, RIGHT SIDE 09/02/2016 NOBLES DO, OXANA C Ot N83.202 UNSPECIFIED OVARIAN CYST, LEFT SIDE 09/02/2016 NOBLES DO, OXANA C Ot N87.9 DYSPLASIA OF CERVIX UTERI, UNSPECIFIED 09/02/2016 NOBLES DO, OXANA C Ot R73.9 HYPERGLYCEMIA, UNSPECIFIED 09/02/2016 NOBLES DO, OXANA C Ot Z23 ENCOUNTER FOR IMMUNIZATION 04/02/2017 HUGH CHRISTIAN, KRISTINA Ho Ot F17.210 NICOTINE DEPENDENCE, CIGARETTES, UNCOMPL 04/02/2017 HUGH CHRISTIAN, KRISTINA oH Ot N39.0 URINARY TRACT INFECTION, SITE NOT SPECIF 04/02/2017 KRISTINA REESE MD Ot R35.0 FREQUENCY OF MICTURITION 04/02/2017 HUGH CHRISTIAN, KRISTINA Ho Ot Z98.890 OTHER SPECIFIED POSTPROCEDURAL STATES 04/09/2017 MOSHE URRUTIA SHELBY Gant Ot F17.210 NICOTINE DEPENDENCE, CIGARETTES, UNCOMPL 04/09/2017 MOSHE URRUTIA SHELBY Stalin Ot M25.561 PAIN IN RIGHT KNEE 04/09/2017 MOSHE URRUTIA SHELBY Stalin Ot S83.91XA SPRAIN OF UNSPECIFIED SITE OF RIGHT KNEE 04/09/2017 MOSHE URRUTIA SHELBY Gant Ot X50.0XXA OVEREXERTION FROM STRENUOUS MOVEMENT OR 06/16/2017 MOSHE URRUTIA SHELBY Stalin Ot E66.9 OBESITY, UNSPECIFIED 06/16/2017 MOSHE URRUTIA SHELBY Gant Ot F17.210 NICOTINE DEPENDENCE, CIGARETTES, UNCOMPL 06/16/2017 MOSHE SHELBY Gant Ot N39.0 URINARY TRACT INFECTION, SITE NOT SPECIF 06/16/2017 MOSHE SHELBY Gant Ot R39.15 URGENCY OF URINATION 06/16/2017 MOSHE SHELBY Gant Ot Z68.41 BODY MASS INDEX (BMI) 40.0-44.9, ADULT 06/16/2017 MOSHE URRUTIA SHELBY Gant Ot Z87.2 PERSONAL HISTORY OF DISEASES OF THE SKIN 06/16/2017 MOSHE URRUTIA SHELBY Gant Ot Z87.42 PERSONAL HISTORY OF OTH DISEASES OF THE 06/16/2017 MOSHE SHELBY Gant Ot Z87.59 PERSONAL HISTORY OF COMP OF PREG, CHLDBR 06/16/2017 MOSHE URRUTIA SHELBY Gant Ot Z90.49 ACQUIRED ABSENCE OF OTHER SPECIFIED PART 06/16/2017 MOSHE URRUTIA SHELBY Gant Ot Z90.710 ACQUIRED ABSENCE OF BOTH CERVIX AND UTER 06/20/2017 GLENN DIAZ APRN Ot E66.9 OBESITY, UNSPECIFIED 06/20/2017 GLENN DIAZ APRN Ot F17.210 NICOTINE DEPENDENCE, CIGARETTES, UNCOMPL 06/20/2017 GLENN DIAZ APRN Ot J40 BRONCHITIS, NOT SPECIFIED ACUTE OR CH 06/20/2017 GLENN DIAZ APRN Ot M79.605 PAIN IN LEFT LEG 06/20/2017 GLENN DIAZ APRN Ot R05 COUGH 06/20/2017 GLENN DIAZ APRN Ot Z87.42 PERSONAL HISTORY OF OTH DISEASES OF THE 06/20/2017 GLENN DIAZ APRN Ot Z87.440 PERSONAL HISTORY OF URINARY (TRACT) INFE 06/20/2017 GLENN DIAZ APRN Ot Z90.49 ACQUIRED ABSENCE OF OTHER SPECIFIED PART 06/20/2017 GLENN DIAZ APRN Ot Z90.710 ACQUIRED ABSENCE OF BOTH CERVIX AND UTER 06/22/2017 GLENN DIAZ APRN Ot E66.9 OBESITY, UNSPECIFIED 06/22/2017 GLENN DIAZ APRN Ot F17.210 NICOTINE DEPENDENCE, CIGARETTES, UNCOMPL 06/22/2017 GLENN DIAZ APRN Ot J40 BRONCHITIS, NOT SPECIFIED ACUTE OR CH 06/22/2017 GLENN DIAZ APRN Ot M79.605 PAIN IN LEFT LEG 06/22/2017 GLENN DIAZ APRN Ot R05 COUGH 06/22/2017 GLENN DIAZ APRN Ot Z87.42 PERSONAL HISTORY OF OTH DISEASES OF THE 06/22/2017 GLENN DIAZ APRN Ot Z87.440 PERSONAL HISTORY OF URINARY (TRACT) INFE 06/22/2017 GLENN DIAZ APRN Ot Z90.49 ACQUIRED ABSENCE OF OTHER SPECIFIED PART 06/22/2017 GLENN DIAZ APRN Ot Z90.710 ACQUIRED ABSENCE OF BOTH CERVIX AND UTER 07/14/2017 MELANIE PRINCE DO Ot R05 COUGH 07/14/2017 MELANIE PRINCE DO Ot R09.89 OTH SYMPTOMS AND SIGNS INVOLVING THE CIR 11/29/2017 GLENN DIAZ APRN Ot E66.9 OBESITY, UNSPECIFIED 11/29/2017 GLENN DIAZ APRN Ot K80.50 CALCULUS OF BILE DUCT W/O CHOLANGITIS OR 11/29/2017 GLENN DIAZ APRN Ot R10.11 RIGHT UPPER QUADRANT PAIN 11/29/2017 GLENN DIAZ APRN Ot Z68.41 BODY MASS INDEX (BMI) 40.0-44.9, ADULT 11/29/2017 GLENN DIAZ APRN Ot Z87.42 PERSONAL HISTORY OF OTH DISEASES OF THE 11/29/2017 GLENN DIAZ APRN Ot Z87.59 PERSONAL HISTORY OF COMP OF PREG, CHLDBR 11/29/2017 GLENN DIAZ APRN Ot Z90.49 ACQUIRED ABSENCE OF OTHER SPECIFIED PART 11/29/2017 GLENN DIAZ APRN Ot Z90.710 ACQUIRED ABSENCE OF BOTH CERVIX AND UTER 11/30/2017 MELANIE PRINCE DO Ot K76.0 FATTY (CHANGE OF) LIVER, NOT ELSEWHERE C 11/30/2017 MELANIE PRINCE DO Ot K80.20 CALCULUS OF GALLBLADDER W/O CHOLECYSTITI Procedures There is no data. Results Test Result Range Complete blood count (CBC) with automated white blood cell (WBC) differential - 07/06/16 14:09 Blood leukocytes automated count (number/volume) 14.3 10*3/uL 4.3-11.0 Blood erythrocytes automated count (number/volume) 5.14 10*6/uL 4.35-5.85 Venous blood hemoglobin measurement (mass/volume) 16.0 [...] Automated blood platelet mean volume measurement 11.0 [foz_us] 7.4-10.4 Automated blood neutrophils/100 leukocytes 67 % [...] Serum or plasma sodium measurement (moles/volume) 141 mmol/L 135-145 Serum or plasma potassium measurement (moles/volume) 3.6 mmol/L 3.6-5.0 Serum or plasma chloride measurement (moles/volume) 111 mmol/L 98-107 Carbon dioxide 21 mmol/L 21-32 Serum or plasma anion gap determination (moles/volume) 9 mmol/L 5-14 Serum or plasma urea nitrogen measurement (mass/volume) 8 mg/dL 7-18 Serum or plasma creatinine measurement (mass/volume) 0.74 mg/dL 0.60-1.30 Serum or plasma urea nitrogen/creatinine mass [...] Serum or plasma choriogonadotropin measurement (units/volume) < m[iU ]/mL <5 Bacteria identification in genital specimen by aerobe culture - 07/06/16 14:20 FREE TEXT EXTERNAL PLUS NORMAL GABRIELLA NRG QUANTITY OF GROWTH Moderate Growth NRG Bacteria identification in genital specimen by aerobe culture [id number] NRG Complete urinalysis with reflex to culture - 07/06/16 14:20 Urine color determination HAL NRG Urine clarity determination SLIGHTLY CLOUDY NRG Urine pH measurement by test strip 5 5-9 Specific gravity of urine by test strip 1.030 1.016- 1.022 Urine protein assay by test strip, semi-quantitative [...] culture - 07/06/16 14:20 Bacterial urine culture [id number] NRG COLONY COUNT 10,000/ML - 100,000/ML NRG [...] Gentamicin susceptibility test by minimum inhibitory concentration < = NRG Trimethoprim/sulfamethoxazole susceptibility test by minimum inhibitoryconcentration <= NRG Ampicillin susceptibility test by minimum inhibitory concentration 8 NRG Tobramycin susceptibility test by minimum inhibitory concentration < = NRG Cefazolin susceptibility test by minimum inhibitory concentration < = NRG Ceftriaxone susceptibility test by minimum inhibitory concentration <= NRG Ampicillin/sulbactam susceptibility test by minimum inhibitory concentration 4 NRG Piperacillin/tazobactam susceptibility test by minimum inhibitory concentration <= NRG Ciprofloxacin susceptibility test by minimum inhibitory concentration <= NRG Meropenem susceptibility test by minimum inhibitory concentration < = NRG Nitrofurantoin susceptibility test by minimum inhibitory concentration <= NRG Aztreonam susceptibility test by minimum inhibitory concentration < = NRG Extended spectrum beta lactamase (ESBL) producing bacteria susceptibility test by minimum inhibitory concentration NEG NRG Neisseria gonorrhoeae DNA detection by probe and signal amplification method - 07/06/16 14:20 Gonorrhea amp DNA-urine Negative Negative Complete blood count (CBC) with automated white blood cell (WBC) differential - 07/23/16 10:00 Blood leukocytes automated count (number/volume) 12.8 10*3/uL 4.3-11.0 Blood erythrocytes automated count (number/volume) 5.15 10*6/uL 4.35-5.85 Venous blood hemoglobin measurement (mass/volume) 16.0 [...] Automated blood platelet mean volume measurement 10.9 [foz_us] 7.4-10.4 Automated blood neutrophils/100 leukocytes 72 % [...] Urine pH measurement by test strip 5 5-9 Specific gravity of urine by test strip 1.020 1.016- 1.022 Urine protein assay by test strip, semi-quantitative [...] ABO+Rh group ABP NRG Transfusion band number [id number] NRG Blood group antibody screen NEGATIVE NRG Complete blood count (CBC) with automated white blood cell (WBC) differential - 07/27/16 14:00 Blood leukocytes automated count (number/volume) 27.9 10*3/uL 4.3-11.0 Blood erythrocytes automated count (number/volume) 5.00 10*6/uL 4.35-5.85 Venous blood hemoglobin measurement (mass/volume) 15.4 [...] Automated blood platelet mean volume measurement 10.8 [foz_us] 7.4-10.4 Automated blood neutrophils/100 leukocytes 94 % [...] Blood erythrocyte morphology finding identification NORMAL NRG Whole blood basic metabolic panel - 07/27/16 14:00 Serum or plasma sodium measurement (moles/volume) 138 mmol/L 135-145 Serum or plasma potassium measurement (moles/volume) 4.6 mmol/L 3.6-5.0 Serum or plasma chloride measurement (moles/volume) 108 mmol/L 98-107 Carbon dioxide 18 mmol/L 21-32 Serum or plasma anion gap determination (moles/volume) 12 mmol/L 5-14 Serum or plasma urea nitrogen measurement (mass/volume) 9 mg/dL 7-18 Serum or plasma creatinine measurement (mass/volume) 0.78 mg/dL 0.60-1.30 Serum or plasma urea nitrogen/creatinine mass [...] 04:45 Blood leukocytes automated count (number/volume) 19.9 10*3/uL 4.3-11.0 Blood erythrocytes automated count (number/volume) 4.47 10*6/uL 4.35-5.85 Venous blood hemoglobin measurement (mass/volume) 13.7 [...] Automated blood platelet mean volume measurement 11.2 [foz_us] 7.4-10.4 Automated blood neutrophils/100 leukocytes 75 % [...] Serum or plasma sodium measurement (moles/volume) 137 mmol/L 135-145 Serum or plasma potassium measurement (moles/volume) 4.0 mmol/L 3.6-5.0 Serum or plasma chloride measurement (moles/volume) 108 mmol/L 98-107 Carbon dioxide 18 mmol/L 21-32 Serum or plasma anion gap determination (moles/volume) 11 mmol/L 5-14 Serum or plasma urea nitrogen measurement (mass/volume) 10 mg/dL 7-18 Serum or plasma creatinine measurement (mass/volume) 0.59 mg/dL 0.60-1.30 Serum or plasma urea nitrogen/creatinine mass [...] Urine pH measurement by test strip 5 5-9 Specific gravity of urine by test strip 1.030 1.016- 1.022 Urine protein assay by test strip, semi-quantitative [...] F[place];REPORTABLE MIXED GRAM POSITIVE GABRIELLA <10,000/ML NRG Complete urinalysis with reflex to culture - 06/16/17 22:54 Urine color determination YELLOW NRG Urine clarity determination SLIGHTLY CLOUDY NRG Urine pH measurement by test strip 6 5-9 Specific gravity of urine by test strip 1.025 1.016- 1.022 Urine protein assay by test strip, semi-quantitative 2+ NEGATIVE Urine glucose detection by automated test strip NEGATIVE NEGATIVE Erythrocytes detection in urine sediment by light microscopy 4+ NEGATIVE Urine ketones detection by automated test strip NEGATIVE NEGATIVE Urine nitrite detection by test strip POSITIVE NEGATIVE Urine total bilirubin detection by test strip NEGATIVE NEGATIVE Urine urobilinogen measurement by automated test strip (mass/volume) 1 mg/dL NORMAL Urine leukocyte esterase detection by dipstick 3+ NEGATIVE Automated urine sediment erythrocyte count by microscopy (number/high power field) [HPF] NRG Automated urine sediment leukocyte count by microscopy (number/high power field ) TNTC NRG Bacteria detection in urine sediment by light microscopy LARGE NRG Squamous epithelial cells detection in urine sediment by light microscopy 5-10 NRG Crystals detection in urine sediment by light microscopy NONE NRG Casts detection in urine sediment by light microscopy NONE NRG Mucus detection in urine sediment by light microscopy NEGATIVE NRG Complete urinalysis with reflex to culture YES NRG Bacterial urine culture - 06/16/17 22:54 Bacterial urine culture [id number] NRG COLONY COUNT >100,000/ML NRG FTX;REPORTABLE SENSITIVITY REPORTED 06/18 08:30 NRG Bacterial susceptibility panel - 06/16/17 22:54 Gentamicin susceptibility test by minimum inhibitory concentration < = NRG Trimethoprim/sulfamethoxazole susceptibility test by minimum inhibitoryconcentration <= NRG Ampicillin susceptibility test by minimum inhibitory concentration < = NRG Tobramycin susceptibility test by minimum inhibitory concentration < = NRG Cefazolin susceptibility test by minimum inhibitory concentration < = NRG Ceftriaxone susceptibility test by minimum inhibitory concentration <= NRG Ampicillin/sulbactam susceptibility test by minimum inhibitory concentration <= NRG Piperacillin/tazobactam susceptibility test by minimum inhibitory concentration <= NRG Ciprofloxacin susceptibility test by minimum inhibitory concentration <= NRG Meropenem susceptibility test by minimum inhibitory concentration < = NRG Nitrofurantoin susceptibility test by minimum inhibitory concentration <= NRG Aztreonam susceptibility test by minimum inhibitory concentration < = NRG Extended spectrum beta lactamase (ESBL) producing bacteria susceptibility test by minimum inhibitory concentration - NRG Complete urinalysis with reflex to culture - 06/20/17 21:06 Urine color determination ORANGE NRG Urine clarity determination SLIGHTLY CLOUDY NRG Urine pH measurement by test strip 5 5-9 Specific gravity of urine by test strip 1.025 1.016- 1.022 Urine protein assay by test strip, semi-quantitative 2+ NEGATIVE Urine glucose detection by automated test strip 3+ NEGATIVE Erythrocytes detection in urine sediment by light microscopy 1+ NEGATIVE Urine ketones detection by automated test strip 1+ NEGATIVE Urine nitrite detection by test strip POSITIVE NEGATIVE Urine total bilirubin detection by test strip 1+ NEGATIVE Urine urobilinogen measurement by automated test [...] urinalysis with reflex to culture NO NRG Complete blood count (CBC) with automated white blood cell (WBC) differential - 06/20/17 21:36 Blood leukocytes automated count (number/volume) 18.7 10*3/uL 4.3-11.0 Blood erythrocytes automated count (number/volume) 5.33 10*6/uL 4.35-5.85 Venous blood hemoglobin measurement (mass/volume) 16.1 g/dL 11.5-16.0 Blood hematocrit (volume fraction) 48 % 35-52 Automated erythrocyte mean corpuscular volume 89 [foz_us] 80-99 Automated erythrocyte mean corpuscular hemoglobin (mass per erythrocyte) 30 pg 25-34 Automated erythrocyte mean corpuscular hemoglobin concentration measurement ( mass/volume) 34 g/dL 32-36 Automated erythrocyte distribution width ratio 14.5 % 10.0-14.5 Automated blood platelet count (count/volume) 263 10*3/uL 130-400 Automated blood platelet mean volume measurement 10.6 [foz_us] 7.4-10.4 Automated blood neutrophils/100 leukocytes 68 % 42-75 Automated blood lymphocytes/100 leukocytes 24 % 12-44 Blood monocytes/100 leukocytes 5 % 0-12 Automated blood eosinophils/100 leukocytes 3 % 0-10 Automated blood basophils/100 leukocytes 1 % 0-10 Blood neutrophils automated count (number/volume) 12.6 10*3 1.8-7.8 Blood lymphocytes automated count (number/volume) 4.4 10*3 1.0-4.0 Blood monocytes automated count (number/volume) 1.0 10*3 0.0-1.0 Automated eosinophil count 0.6 10*3/uL 0.0-0.3 Automated blood basophil count (count/volume) 0.1 10*3/uL 0.0-0.1 Fibrin D-dimer FEU measurement in platelet poor plasma (mass/volume) - 21:36 Fibrin D-dimer FEU measurement in platelet poor plasma (mass/volume) 0.54 ug/mL 0.00-0.49 Comprehensive metabolic panel - 06/20/17 21:36 Serum or plasma sodium measurement (moles/volume) 143 mmol/L 135-145 Serum or plasma potassium measurement (moles/volume) 3.5 mmol/L 3.6-5.0 Serum or plasma chloride measurement (moles/volume) 110 mmol/L 98-107 Carbon dioxide 22 mmol/L 21-32 Serum or plasma anion gap determination (moles/volume) 11 mmol/L 5-14 Serum or plasma urea nitrogen measurement (mass/volume) 9 mg/dL 7-18 Serum or plasma creatinine measurement (mass/volume) 0.69 mg/dL 0.60-1.30 Serum or plasma urea nitrogen/creatinine mass ratio 13 NRG Serum or plasma creatinine measurement with calculation of estimated glomerular filtration rate > NRG Serum or plasma glucose measurement (mass/volume) 162 mg/dL 70-105 Serum or plasma calcium measurement (mass/volume) 8.6 mg/dL 8.5-10.1 Serum or plasma total bilirubin measurement (mass/volume) 0.3 mg/dL 0.1-1.0 Serum or plasma alkaline phosphatase measurement (enzymatic activity/volume) 81 U/L 40-136 Serum or plasma aspartate aminotransferase measurement (enzymatic activity/ volume) 14 U/L 5-34 Serum or plasma alanine aminotransferase measurement (enzymatic activity/volume ) 21 U/L 0-55 Serum or plasma protein measurement (mass/volume) 6.3 g/dL 6.4-8.2 Serum or plasma albumin measurement (mass/volume) 3.5 g/dL 3.2-4.5 Blood manual differential performed detection - 06/20/17 21:36 Blood monocytes/100 leukocytes 2 % NRG Manual blood segmented neutrophils/100 leukocytes 71 % NRG Blood band neutrophils/100 leukocytes 0 % NRG Manual blood lymphocytes/100 leukocytes 22 % NRG Manual eosinophils/100 leukocytes in nose 5 % NRG Manual blood basophils/100 leukocytes 0 % NRG Blood erythrocyte morphology finding identification NORMAL NRG Serum or plasma lithium measurement (moles/volume) - 06/20/17 21:36 BNP level 16.7 pg/mL <100.0 Complete blood count (CBC) with automated white blood cell (WBC) differential - 06/28/17 13:20 Blood leukocytes automated count (number/volume) 15.8 10*3/uL 4.3-11.0 Blood erythrocytes automated count (number/volume) 5.46 10*6/uL 4.35-5.85 Venous blood hemoglobin measurement (mass/volume) 16.5 g/dL 11.5-16.0 Blood hematocrit (volume fraction) 48 % 35-52 Automated erythrocyte mean corpuscular volume 89 [foz_us] 80-99 Automated erythrocyte mean corpuscular hemoglobin (mass per erythrocyte) 30 pg 25-34 Automated erythrocyte mean corpuscular hemoglobin concentration measurement ( mass/volume) 34 g/dL 32-36 Automated erythrocyte distribution width ratio 14.4 % 10.0-14.5 Automated blood platelet count (count/volume) 278 10*3/uL 130-400 Automated blood platelet mean volume measurement 10.1 [foz_us] 7.4-10.4 Automated blood neutrophils/100 leukocytes 61 % 42-75 Automated blood lymphocytes/100 leukocytes 29 % 12-44 Blood monocytes/100 leukocytes 6 % 0-12 Automated blood eosinophils/100 leukocytes 4 % 0-10 Automated blood basophils/100 leukocytes 1 % 0-10 Blood neutrophils automated count (number/volume) 9.6 10*3 1.8-7.8 Blood lymphocytes automated count (number/volume) 4.6 10*3 1.0-4.0 Blood monocytes automated count (number/volume) 0.9 10*3 0.0-1.0 Automated eosinophil count 0.6 10*3/uL 0.0-0.3 Automated blood basophil count (count/volume) 0.1 10*3/uL 0.0-0.1 Blood manual differential performed detection - 06/28/17 13:20 Blood monocytes/100 leukocytes 2 % NRG Manual blood segmented neutrophils/100 leukocytes 54 % NRG Blood band neutrophils/100 leukocytes 0 % NRG Manual blood lymphocytes/100 leukocytes 36 % NRG Manual eosinophils/100 leukocytes in nose 7 % NRG Manual blood basophils/100 leukocytes 1 % NRG Blood erythrocyte morphology finding identification NORMAL NRG Complete urinalysis with reflex to culture - 11/27/17 20:55 Urine color determination YELLOW NRG Urine clarity determination CLEAR NRG Urine pH measurement by test strip 5 5-9 Specific gravity of urine by test strip 1.025 1.016- 1.022 Urine protein assay by test strip, semi-quantitative 2+ NEGATIVE Urine glucose detection by automated test strip NEGATIVE NEGATIVE Erythrocytes detection in urine sediment by light microscopy NEGATIVE NEGATIVE Urine ketones detection by automated test strip NEGATIVE NEGATIVE Urine nitrite detection by test strip NEGATIVE NEGATIVE Urine total bilirubin detection by test strip NEGATIVE NEGATIVE Urine urobilinogen measurement by automated test strip (mass/volume) 1 mg/dL NORMAL Urine leukocyte esterase detection by dipstick 1+ NEGATIVE Automated urine sediment erythrocyte count by microscopy (number/high power field) NONE NRG Automated urine sediment leukocyte count by [...] urinalysis with reflex to culture NO NRG Complete blood count (CBC) with automated white blood cell (WBC) differential - 11/27/17 21:00 Blood leukocytes automated count (number/volume) 16.8 10*3/uL 4.3-11.0 Blood erythrocytes automated count (number/volume) 5.18 10*6/uL 4.35-5.85 Venous blood hemoglobin measurement (mass/volume) 15.6 g/dL 11.5-16.0 Blood hematocrit (volume fraction) 46 % 35-52 Automated erythrocyte mean corpuscular volume 89 [foz_us] 80-99 Automated erythrocyte mean corpuscular hemoglobin (mass per erythrocyte) 30 pg 25-34 Automated erythrocyte mean corpuscular hemoglobin concentration measurement ( mass/volume) 34 g/dL 32-36 Automated erythrocyte distribution width ratio 14.6 % 10.0-14.5 Automated blood platelet count (count/volume) 254 10*3/uL 130-400 Automated blood platelet mean volume measurement 10.7 [foz_us] 7.4-10.4 Automated blood neutrophils/100 leukocytes 60 % 42-75 Automated blood lymphocytes/100 leukocytes 30 % 12-44 Blood monocytes/100 leukocytes 6 % 0-12 Automated blood eosinophils/100 leukocytes 4 % 0-10 Automated blood basophils/100 leukocytes 1 % 0-10 Blood neutrophils automated count (number/volume) 10.1 10*3 1.8-7.8 Blood lymphocytes automated count (number/volume) 5.0 10*3 1.0-4.0 Blood monocytes automated count (number/volume) 0.9 10*3 0.0-1.0 Automated eosinophil count 0.7 10*3/uL 0.0-0.3 Automated blood basophil count (count/volume) 0.1 10*3/uL 0.0-0.1 Comprehensive metabolic panel - 11/27/17 21:00 Serum or plasma sodium measurement (moles/volume) 145 mmol/L 135-145 Serum or plasma potassium measurement (moles/volume) 3.7 mmol/L 3.6-5.0 Serum or plasma chloride measurement (moles/volume) 109 mmol/L 98-107 Carbon dioxide 24 mmol/L 21-32 Serum or plasma anion gap determination (moles/volume) 12 mmol/L 5-14 Serum or plasma urea nitrogen measurement (mass/volume) 12 mg/dL 7-18 Serum or plasma creatinine measurement (mass/volume) 0.71 mg/dL 0.60-1.30 Serum or plasma urea nitrogen/creatinine mass ratio 17 NRG Serum or plasma creatinine measurement with calculation of estimated glomerular filtration rate > NRG Serum or plasma glucose measurement (mass/volume) 120 mg/dL 70-105 Serum or plasma calcium measurement (mass/volume) 8.7 mg/dL 8.5-10.1 Serum or plasma total bilirubin measurement (mass/volume) 0.2 mg/dL 0.1-1.0 Serum or plasma alkaline phosphatase measurement (enzymatic activity/volume) 84 U/L 40-136 Serum or plasma aspartate aminotransferase measurement (enzymatic activity/ volume) 14 U/L 5-34 Serum or plasma alanine aminotransferase measurement (enzymatic activity/volume ) 21 U/L 0-55 Serum or plasma protein measurement (mass/volume) 6.6 g/dL 6.4-8.2 Serum or plasma albumin measurement (mass/volume) 3.5 g/dL 3.2-4.5 Lipase - 11/27/17 21:00 Lipase 16 U/L 8-78 Blood manual differential performed detection - 11/27/17 21:00 Blood monocytes/100 leukocytes 1 % NRG Manual blood segmented neutrophils/100 leukocytes 52 % NRG Blood band neutrophils/100 leukocytes 0 % NRG Manual blood lymphocytes/100 leukocytes 45 % NRG Manual eosinophils/100 leukocytes in nose 2 % NRG Manual blood basophils/100 leukocytes 0 % NRG Blood erythrocyte morphology finding identification NORMAL NRG Encounters ACCT No. Visit Date/Time Discharge Status Pt. Type Provider Facility Loc./Unit Complaint [id number] 11/29/2017 07:51:00 11/29/2017 23:59:59 CLS Outpatient SURESH URRUTIA MELANIE Marbin [facility] RAD PAIN IN RUQ IN ABD [id number] 11/27/2017 20:07:00 11/27/2017 22:50:00 DIS Outpatient GLENN DIAZ APRN [facility] ER SEVERE ABD AND PACK PAIN [id number] 06/28/2017 12:51:00 06/28/2017 23:59:59 CLS Outpatient SURESH URRUTIA MELANIE Marbin [facility] RAD COUGH AND CONGESTION [id number] 06/20/2017 20:53:00 06/20/2017 23:28:00 DIS Emergency GLENN DIAZ APRN [facility] ER LT LEG PAIN,SOB [id number] 06/16/2017 22:45:00 06/16/2017 23:34:00 DIS Emergency MOSHE DOSHELBY [facility] ER POSSIBLE UTI [id number] 04/09/2017 22:37:00 04/09/2017 23:38:00 DIS Emergency MOSHE SHELBY URRUTIA K [facility] ER R KNEE PAIN [id number] 04/02/2017 03:26:00 04/02/2017 04:12:00 DIS Emergency KRISTINA REESE MD [facility] ER POSS UTI [id number] 07/27/2016 06:00:00 07/28/2016 12:55:00 DIS Outpatient OXANA NOBLES DO [facility] SDC OVARIAN CYSTS [id number] 07/23/2016 09:41:00 07/23/2016 10:10:00 DIS Outpatient OXANA NOBLES DO [facility] PREOP OVARIAN CYSTS [id number] 07/06/2016 14:04:00 07/06/2016 16:48:00 DIS Emergency GLENN DIAZ APRN [facility] ER VAG BLEEDING ABD PAIN/ PRESSURE [id number] 06/19/2016 22:13:00 06/19/2016 23:29:00 DIS Emergency KRISTINA REESE MD [facility] ER RIGHT LEG PAIN/ WEAKNESS [id number] 09/02/2014 12:30:00 09/16/2014 08:50:00 DIS Outpatient KERVIN CHRISTIAN, STEFANY Myrick [facility] WOUNDCARE [id number] 07/29/2014 15:08:00 08/05/2014 11:20:00 DIS Inpatient [id number] 07/26/2014 07:10:00 07/26/2014 23:59:59 CLS Outpatient [id number] 07/14/2014 16:39:00 07/19/2014 15:20:00 DIS Inpatient [id number] 06/26/2014 09:40:00 06/26/2014 16:05:00 DIS Outpatient [id number] 06/03/2014 08:29:00 06/03/2014 23:59:59 CLS Outpatient [id number] 05/24/2014 21:50:00 05/26/2014 12:40:00 DIS Inpatient [id number] 05/15/2014 11:14:00 05/17/2014 10:53:00 DIS Outpatient [id number] 05/09/2014 07:47:00 05/09/2014 23:59:59 CLS Outpatient [id number] 04/30/2014 12:21:00 04/30/2014 23:59:59 CLS Outpatient [id number] 04/25/2014 07:58:00 04/25/2014 23:59:59 CLS Outpatient
[2017-12-12] MEDS: LACTATED RINGERS 1,000 ML IV PRN ×2 (09:20→11:50)
[2017-12-12] MEDS ORDERED: ceFAZolin 2 GM IV Premixed 50 ML IV ONE (09:30)
[2017-12-12] MEDS ORDERED: MIDAZOLAM 2 MG/2 ML (VERSED) VIAL IV ONE (09:30)
[2017-12-12] MEDS ORDERED: LIDOCAINE PF 2% 5 ML (XYLOCAINE) VIAL ONE (09:50)
[2017-12-12] MEDS ORDERED: ROCURONIUM 50 MG/5 ML (ZEMURON) VIAL IV ONE ×2 (09:50→12:12)
[2017-12-12] MEDS ORDERED: ONDANSETRON 4 MG/2 ML (SDV) Z0FRAN ONE (09:50)
[2017-12-12] MEDS ORDERED: DEXAMETHASONE 10 MG/ML (DECADRON) 1 ML VIAL ONE (09:50)
[2017-12-12] MEDS ORDERED: proPOfol 200 MG/20 ML (DIPRIVAN) VIAL IV ONE ×2 (09:50→13:17)
[2017-12-12] MEDS ORDERED: SEVOFLURANE (ULTANE) 15 ML INHAL SOLN ONE ×4 (09:50→13:17)
[2017-12-12] MEDS ORDERED: fentaNYL INJECTION 100 MCG/2 ML AMP ONE (09:51)
[2017-12-12] MEDS ORDERED: MIDAZOLAM 2 MG/2 ML (VERSED) VIAL ONE (09:51)
[2017-12-12 10:14] VITALS: BP 130/91
--- NOTE | 2017-12-12 10:34 | Progress Note-Pre Operative ---
Pre-Operative Progress Note H&P Reviewed The H&P was reviewed, patient examined and no changes noted. Date Seen by Provider: Dec 12, 2017 Time Seen by Provider: 09:15 Date H&P Reviewed: Dec 12, 2017 Time H&P Reviewed: 09:15 Pre-Operative Diagnosis: SYMPTOMATIC CHOLELITHIASIS MADDIE DIAZ DO Dec 12, 2017 10:34
[2017-12-12] MEDS ORDERED: LIDOCAINE 1% INJ 20 ML (XYLOCAINE) VIAL ONE (10:50)
[2017-12-12] MEDS ORDERED: BUPIVACAINE 0.5% 30 ML (SENSORCAINE) VIAL ONE (10:50)
[2017-12-12] MEDS ORDERED: ACHD5005 PO (12:38)
[2017-12-12] MEDS ORDERED: DOCU-143 PO (12:38)
--- NOTE | 2017-12-12 12:38 | Progress Note-Post Operative ---
Post-Operative Progess Note Surgeon (s)/Plaster Die Maker (s) Surgeon MADDIE DIAZ DO Plaster Die Maker: Dr. Canseco Pre-Operative Diagnosis SYMPTOMATIC CHOLELITHIASIS Post-Operative Diagnosis same, adhesions, right inisional hernia Procedure & Operative Findings Date of Procedure 12/12/17 Procedure Performed/Findings lap shahnaz c ioc Anesthesia Type general Estimated Blood Loss Estimated blood loss (mL): minimal Specimens/Packing Specimens Removed gallbladder MADDIE DIAZ DO Dec 12, 2017 12:38
--- NOTE | 2017-12-12 12:40 | Discharge Inst-Simple/Standard ---
Discharge Inst-Standard Discharge Medications New, Converted or Re-Newed RX: RX on Chart Patient Instructions/Follow Up Plan of Care/Instructions/FU: 2 weeks Aram Activity as Tolerated: No Discharge Diet: Regular Diet Other Inst to Patient Follow up Appt: Make appointment for 2 weeks. Instructions: No lifting greater than 10 pounds. No strenuous activity. May shower in 24 hours, no tub bath or soaking. Use incentive spirometer at home as directed. No Smoking Skin/Wound Care: You have special glue over incisions it will fall off on its own. Symptoms to Report: Appetite Changes, Extremity Discoloration, Numbness/Tingling, Swelling Increased , Bleeding Excessive, Eyesight Changes, Pain Increased, Urine Color Change, Constipation(Persistent), Fever over 101 degree F, Pain/Pressure in chest, Urinating Difficulty, Cough Up/Vomit Blood, Heart Beat Irreg/Pounding, Pain/ Pressure in jaw, Vaginal Bleeding Increase, Cramps in feet or legs, Lightheadedness, Pain/Pressure in shoulder, Diarrhea(Persistent), Memory Changes Suddenly, Questions/Concerns, Weight gain consecutive days, Dizziness/ Fainting, Nausea/Vomiting, Shortness of Breath, Weight gain over 2 pounds. If eyes or skin turn yellow notify physician. If questions or concerns contact your physician Or seek help at emergency department. MADDIE DIAZ DO Dec 12, 2017 12:40
[2017-12-12] MEDS ORDERED: morphine INJ 10 MG/ML 1ML (SYR OR VIAL) ONE (12:41)
[2017-12-12] MEDS ORDERED: HYDROcodone/APAP 5 MG/325 MG (LORTAB) TAB PO PRN (12:45)
[2017-12-12] MEDS ORDERED: HYDROmorphone (DILAUDID) 2 MG/ML VIAL IVP PRN (13:15)
[2017-12-12] MEDS ORDERED: ONDANSETRON 4 MG/2 ML (SDV) Z0FRAN IVP PRN (13:15)
[2017-12-12] MEDS ORDERED: GLYCOPYRROLATE 0.2 MG/ML (ROBINUL) 2 ML VIAL ONE (13:17)
[2017-12-12] MEDS ORDERED: NEOSTIGMINE (BLOXIVERZ ) 1 MG/1ML 10 ML VIAL ONE (13:17)
[2017-12-12] MEDS ORDERED: KETOROLAC 30 MG/ML VIAL ONE (13:17)
[2017-12-12 14:00] VITALS: BP 125/77
--- NOTE | 2017-12-12 14:01 | Anesthesia-General Post-Op ---
General Patient Condition Mental Status/LOC: Same as Preop Cardiovascular: Satisfactory Nausea/Vomiting: Absent Respiratory: Satisfactory Pain: Controlled Complications: Absent Post Op Complications Complications None Follow Up Care/Instructions Patient Instructions None needed. Anesthesia/Patient Condition Patient Condition Patient S/E and is doing well, no complaints, stable vital signs, no apparent adverse anesthesia problems. OLIMPIA GARAY DO Dec 12, 2017 14:01
[2017-12-12 14:30] VITALS: BP 136/87
--- NOTE | 2017-12-12 19:21 | Diagnostic Imaging Report ---
INDICATION: Cholecystectomy. Operative cholangiogram performed in the routine fashion with contrast injection via the cystic duct stump. FINDINGS: There is a normal variant with the cystic duct inserting on the right hepatic duct. The biliary tree, however, is nondilated. There are no filling defects in the common bile duct to suggest stones. There is passage of contrast to the duodenum without obstruction. Small amount of contrast is refluxed into the pancreatic duct which appears otherwise unremarkable. 8 seconds of fluoroscopy time was used. IMPRESSION: No evidence of biliary obstruction or stones in the common bile duct. Anatomic variant with the cystic duct appearing to insert on the right hepatic duct. Dictated by: Dictated on workstation # [id number]
--- NOTE | 2017-12-12 20:51 | OPERATIVE REPORT ---
DATE OF SERVICE: 12/12/2017 PREOPERATIVE DIAGNOSIS: Symptomatic cholelithiasis. POSTOPERATIVE DIAGNOSES: Symptomatic cholelithiasis, incisional hernia and abdominal adhesions. PROCEDURE: Laparoscopic cholecystectomy with intraoperative cholangiogram. SURGEON: Maddie Chiu DO. BEAUTY CULTURIST: Dr. Canseco, assisted in retraction, dissection and closure. ANESTHESIA: General. ESTIMATED BLOOD LOSS: Minimal. COMPLICATIONS: None. INDICATIONS: The patient is a 42-year-old female who has been having epigastric right upper quadrant abdominal pain. She understands risks and benefits of procedure and wished to proceed with procedure. Consent was signed and on the chart. DESCRIPTION OF PROCEDURE: She was taken to the operating suite. She was prepped and draped in sterile fashion. Surgical pause was performed. Archnaa technique was used to enter the abdomen just superior to the above the umbilicus. The balloon trocar was inserted into the abdomen, pneumoperitoneum was achieved. A lot of adhesions were present. Scope was used to bluntly take these down and the right upper quadrant was able to be visualized. There were no adhesions except for where there was a previous trocar site. There appears to be an incisional hernia. The two 5 mm trocars were then placed in the right upper quadrant. The scope was then switched to a 5 mm scope and some of the adhesions were taken down around the balloon trocar. A 5 mm trocar was then placed in the subxiphoid region. The gallbladder was then grasped, elevated, multiple adhesions of omentum and some thickening around the gallbladder was present. The cystic duct was then dissected out. Clips were placed on the distal portion of the cystic duct. This was then partially transected and arrow catheter was inserted and cholangiogram was then performed. There were no filling defects. Contrast made its way into the duodenum. The cystic duct has variant, which appears to be into the right hepatic duct. The balloon trocar was then removed. The clips were placed on the proximal portion of the cystic duct and this was then completely transected. The cystic artery was very tiny which hook cautery was used to transect it. The gallbladder was then removed using hook cautery achieving hemostasis. Once removed, it was placed in an Endobag and removed through the 12 mm trocar site. Copious amounts of irrigation was then used to irrigate the abdomen. The 12 mm fascial defect was then closed using 0 Vicryl with Endoclose. The abdomen was then desufflated, the trocars were removed. The skin was then closed using 4-0 Monocryl in a subcuticular fashion. The area was then washed and dried and SwiftSet was then placed over the incisions. The patient tolerated the procedure well without any complications. She was taken to recovery room in stable condition. Job ID: [id number] DocumentID: [id number] Dictated Date: 12/12/2017 14:51:37 Embedded Systems Software Developer Date: 12/12/2017 20:50:38 Dictated By: MADDIE CHIU DO
== END 2017-12-12 14:40 | disposition home or self-care (01) ==
LOC: SDC 08:36
PROVIDERS: ATTEND Surgery
DX: K80.20 Calculus of gallbladder without cholecystitis without obstruction (principal); K43.2 Incisional hernia without obstruction or gangrene; F17.210 Nicotine dependence, cigarettes, uncomplicated; E66.01 Morbid (severe) obesity due to excess calories; Z68.41 Body mass index [BMI] 40.0-44.9, adult
CPT/HCPCS: 36430; 87081

== ENCOUNTER 2019-11-19 17:01 | Emergency (ER) | payer BC, MEDICAID ==
[~2019-11-19] VITALS: Ht 160 cm; Wt 113.4 kg
[~2019-11-19 17:01] MED LIST changes: +ACHD5005 PO; +DOCU-143 PO
[2019-11-19] MEDS ORDERED: TRIAMCINOLONE ACET (KENALOG-40) 40 MG/ML 1 ML VIAL IA ONE (18:00)
[2019-11-19] MEDS ORDERED: LIDOCAINE 1% INJ 20 ML 20 ML VIAL INJ ONE (18:00)
--- NOTE | 2019-11-19 18:02 | ED Lower Extremity ---
General Chief Complaint: Lower Extremity Stated Complaint: INJ RT KNEE Nursing Triage Note: PT AMBULATE TO TRIAGE WITH C/O RIGHT KNEE PAIN X5 YEARS. PT REPORTS PAIN IS WORSE TODAY. PT REPORTS AT [facility] FEELING AROUND THE KNEE. Nursing Sepsis Screen: No Definite Risk Source: patient Exam Limitations: no limitations History of Present Illness Date Seen by Provider: Nov 19, 2019 Time Seen by Provider: 18:02 Initial Comments To ER with right knee pain for 5 years, worse last night since standing up after bathing her dog. Onset: yesterday Severity: moderate Pain/Injury Location: right knee Method of Injury: unknown Modifying Factors: Worse With Movement Allergies and Home Medications Allergies Coded Allergies: fentanyl (Verified Allergy, Mild, 11/27/17) chest tightness, anxiety Home Medications Docusate Sodium 100 Mg Capsule, 100 MG PO DAILY Prescribed by: MADDIE DIAZ on 12/12/17 1238 Hydrocodone Bit/Acetaminophen 1 Tab Tab, 1 TAB PO Q4H PRN Prescribed by: MADDIE DIAZ on 12/12/17 1238 Patient Home Medication List Home Medication List Reviewed: Yes Review of Systems Constitutional: see HPI EENTM: see HPI Respiratory: no symptoms reported Cardiovascular: no symptoms reported Genitourinary: no symptoms reported Musculoskeletal: see HPI Skin: no symptoms reported Psychiatric/Neurological: No Symptoms Reported Past Dftjxwo-Psorig-Vvjxxq Hx Patient Social History Alcohol Use: Rarely Uses Number of Drinks Today: AA Alcohol Beverage of Choice: Beer Recreational Drug Use: No Smoking Status: Current Everyday Smoker Type Used: Cigarettes 2nd Hand Smoke Exposure: Yes Recent Foreign Travel: No Contact w/Someone Who Travel: No Recent Infectious Disease Expo: No Recent Hopitalizations: No Physical Abuse: No Sexual Abuse: No Mistreated: No Fear: No Immunizations Up To Date Tetanus Booster (TDap): Unknown Date of Influenza Vaccine: Jul 17, 2017 Seasonal Allergies Seasonal Allergies: No Past Medical History Surgeries: Yes (D&C X2, VENTRAL HERNIA REPAIR, ) Abdominal, Appendectomy, Section, Hysterectomy, Oophorectomy Respiratory: No Cardiac: No Neurological: No 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: Yes Female 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: Menstrual Problems, 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 Sexually Transmitted Disease: No HIV/AIDS: No Genitourinary: Yes Bladder Infection, UTI-Chronic Gastrointestinal: Yes Gall Bladder Disease Musculoskeletal: No Endocrine: No (OBESITY) HEENT: No Hearing Impairment: Denies Cancer: No Psychosocial: No Integumentary: No (ABDOMINAL WALL ABSCESS) Blood Disorders: No Adverse Reaction/Blood Tranf: No Family Medical History Congestive heart failure 19 FATHER Family history: Cardiovascular disease 19 FATHER Family history: Diabetes mellitus 19 MOTHER Heart disease 19 MOTHER History of - respiratory disease 19 FATHER 19 MOTHER Kidney disease 19 MOTHER Physical Exam Vital Signs Vital Signs - First Documented 11/19/19 11/19/19 17:14 18:24 Temp 36.7 Pulse 76 Resp 18 B/P (MAP) 109/75 (86) Pulse Ox 100 O2 Delivery Room Air Capillary Refill : Less Than 3 Seconds Height, Weight, BMI Height: 5'3.00" Weight: 284lbs. 7.0oz. 129.357790mw; 44.00 BMI Method:Stated General Appearance: WD/WN, no apparent distress HEENT: PERRL/EOMI, normal ENT inspection Hips: bilateral hip non-tender, bilateral hip normal inspection, bilateral hip normal range of motion Legs: bilateral leg non-tender, bilateral leg normal inspection, bilateral leg normal range of motion Knees: right knee soft tissue tenderness (along joint line laterally) Ankles: bilateral ankle non-tender, bilateral ankle normal inspection, bilateral ankle normal range of motion Feet: bilateral foot non-tender, bilateral foot normal inspection, bilateral foot normal range of motion Neurologic/Psychiatric: alert, normal mood/affect, oriented x 3 Skin: normal color, warm/dry Progress/Results/Core Measures Results/Orders My Orders Orders - GLENN DIAZ APRN Lidocaine 1% Inj 20 Ml (Xylocaine 1% Inj (11/19/19 18:00) Triamcinolone Acetonide Im (Kenalog-40) (11/19/19 18:00) Medications Given in ED Current Medications Medications Dose Ordered Sig/Addis Route Start Time Stop Time Status Last Admin Dose Admin Lidocaine HCl 3 ml ONCE ONCE INJ 11/19/19 18:00 11/19/19 18:01 DC 11/19/19 18:00 3 ML Triamcinolone Acetonide 40 mg ONCE ONCE IA 11/19/19 18:00 11/19/19 18:01 DC 11/19/19 18:00 40 MG Vital Signs/I&O 11/19/19 11/19/19 17:14 18:24 Temp 36.7 Pulse 76 81 Resp 18 17 B/P (MAP) 109/75 (86) 119/78 Pulse Ox 100 O2 Delivery Room Air Room Air Blood Pressure Mean: 86 Departure Communication (Admissions) Intra-articular injection right knee sterilely using 3 mm 1% lidocaine and 40 mg atenolol. Impression Primary Impression: Injury of meniscus of right knee Qualified Codes: S83.8X1A - Sprain of other specified parts of right knee, initial encounter Disposition: HOME, SELF-CARE Condition: Stable Departure-Patient Inst. Decision time for Depature: 18:03 Referrals: MELANIE PRINCE DO (PCP/Family) Primary Care Physician Patient Instructions: Knee Pain Add. Discharge Instructions: 1. Anti-inflammatories like naproxen or ibuprofen in the meantime 2. Call the scheduling department to schedule the MRI of the right knee. Return to ER for any fevers chills or worsening pain. Follow-up with Dr. Dr. Prince. All discharge instructions reviewed with patient and/or family. Voiced understanding. GLENN DIAZ APRN Nov 19, 2019 18:02
[2019-11-19 18:24] VITALS: BP 119/78
== END 2019-11-19 18:25 | disposition home or self-care (01) ==
LOC: EDUNIT# 17:01 → ER 17:03
DX: S89.91XA Unspecified injury of right lower leg, initial encounter (principal); E66.9 Obesity, unspecified; F17.210 Nicotine dependence, cigarettes, uncomplicated; Z88.5 Allergy status to narcotic agent; Z82.49 Family history of ischemic heart disease and other diseases of the circulatory system; X58.XXXA Exposure to other specified factors, initial encounter

== ENCOUNTER 2020-05-17 02:06 | Emergency (ER) | payer BC ==
[~2020-05-17] VITALS: Ht 157 cm; Wt 122.0 kg
[2020-05-17] MEDS ORDERED: RX-NEO/POLYB/HC OTIC (CORTISPORIN) SUSP 10 ML BTL OT STA (02:22)
[2020-05-17] MEDS ORDERED: LIDOCAINE 1% INJ 20 ML 20 ML VIAL INJ ONE (02:30)
[2020-05-17] MEDS ORDERED: KETOROLAC 30 MG/ML VIAL IM ONE (02:30)
[2020-05-17] MEDS ORDERED: cefTRIAXone 1,000 MG/2.86 ml vial (IM ONLY) IM ONE (02:30)
[2020-05-17] MEDS ORDERED: HYDR-3812 PO (02:51)
[2020-05-17] MEDS ORDERED: CEFD300C3 PO (02:51)
--- NOTE | 2020-05-17 02:52 | ED EENT ---
History of Present Illness General Chief Complaint: Ear Problems Stated Complaint: RT SIDE EAR & JAW PAIN Nursing Triage Note: TO ED VIA POV AND AMBULATORY TO ROOM 6 WITH C/O RIGHT EAR PAIN. TAKING AMOXICILLIN FOR EAR INFECTION. Source: patient Exam Limitations: no limitations History of Present Illness Date Seen by Provider: May 17, 2020 Time Seen by Provider: 02:16 Initial Comments This 44-year-old woman presents to the emergency room with intense pain in the right ear radiating to the jaw and posterior to the ear. She was started on augmented 2 days ago for ear infection. Pain has escalated since then. She is afebrile. Ibuprofen is not effective for resolving her pain. Allergies and Home Medications Allergies Coded Allergies: fentanyl (Verified Allergy, Mild, 11/27/17) chest tightness, anxiety Home Medications Cefdinir 300 Mg Capsule, 300 MG PO BID Prescribed by: TABATHA ALCANTARA on 05/17/20 0251 Docusate Sodium 100 Mg Capsule, 100 MG PO DAILY Prescribed by: MADDIE DIAZ on 12/12/17 1238 Hydrocodone Bit/Acetaminophen 1 Tab Tab, 1 TAB PO Q4H PRN Prescribed by: MADDIE DIAZ on 12/12/17 1238 Hydrocodone/Acetaminophen 1 Each Tablet, 1 EACH PO BID Prescribed by: TABATHA ALCANTARA on 05/17/20 0252 Patient Home Medication List Home Medication List Reviewed: Yes Review of Systems Review of Systems Constitutional: no symptoms reported Eyes: No Symptoms Reported Ears: See HPI Nose: no symptoms reported Mouth: no symptoms reported Throat: no symptoms reported Respiratory: no symptoms reported Cardiovascular: no symptoms reported Gastrointestinal: no symptoms reported : No Musculoskeletal: no symptoms reported Skin: no symptoms reported Neurological: No Symptoms Reported Hematologic/Lymphatic: No Symptoms Reported Past Cdejwhq-Aafska-Dcqqck Hx Past Med/Social Hx: Reviewed Nursing Past Med/Soc Hx Patient Social History Alcohol Use: Denies Use Number of Drinks Today: AA Alcohol Beverage of Choice: Beer Recreational Drug Use: No Type Used: Cigarettes 2nd Hand Smoke Exposure: Yes Recent Foreign Travel: No Contact w/Someone Who Travel: No Recent Infectious Disease Expo: No Recent Hopitalizations: No Physical Abuse: No Sexual Abuse: No Mistreated: No Fear: No Immunizations Up To Date Tetanus Booster (TDap): Unknown Date of Influenza Vaccine: Jul 17, 2017 Seasonal Allergies Seasonal Allergies: No Past Medical History Surgeries: Yes (D&C X2, VENTRAL HERNIA REPAIR, ) Abdominal, Appendectomy, Section, Hysterectomy, Oophorectomy Respiratory: No Cardiac: No Neurological: No 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: Yes Female 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: Menstrual Problems, Ovarian 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 Sexually Transmitted Disease: No HIV/AIDS: No Genitourinary: Yes Bladder Infection, UTI-Chronic Gastrointestinal: Yes Gall Bladder Disease Musculoskeletal: No Endocrine: No (OBESITY) HEENT: No Hearing Impairment: Denies Cancer: No Psychosocial: No Integumentary: No (ABDOMINAL WALL ABSCESS) Blood Disorders: No Adverse Reaction/Blood Tranf: No Family Medical History Congestive heart failure 19 FATHER Family history: Cardiovascular disease 19 FATHER Family history: Diabetes mellitus 19 MOTHER Heart disease 19 MOTHER History of - respiratory disease 19 FATHER 19 MOTHER Kidney disease 19 MOTHER Physical Exam Vital Signs Vital Signs - First Documented 05/17/20 05/17/20 02:10 03:16 Temp 36.9 Pulse 80 Resp 16 B/P (MAP) 155/98 (117) Pulse Ox 98 O2 Delivery Room Air Height, Weight, BMI Height: 5'3.00" Weight: 284lbs. 7.0oz. 129.357259ai; 49.00 BMI Method:Stated General Appearance: WD/WN, mild distress Eyes: bilateral eye normal inspection, bilateral eye PERRL, bilateral eye EOMI Ears: right ear erythema, right ear swelling, right ear tenderness, right ear other (ear canal swollen nearly shut. TM not visible. Tenderness extending beyond the ear posteriorly and anteriorly.); left ear canal normal, left ear TM normal Neck: normal inspection Cardiovascular: regular rate, rhythm, no edema, no murmur Respiratory: lungs clear, normal breath sounds, no respiratory distress, no accessory muscle use Neurologic/Psychiatric: hull builder II-XII nml as tested, no motor/sensory deficits, alert, normal mood/affect, oriented x 3 Skin: normal color, warm/dry Progress/Results/Core Measures Results/Orders My Orders Orders - TABATHA PERRY MD Ketorolac Injection (Toradol Injection) (05/17/20 02:30) Ceftriaxone For Im Use (Rocephin For Im (05/17/20 02:30) Lidocaine 1% Inj 20 Ml (Xylocaine 1% Inj (05/17/20 02:30) Rx-Chip/Poly/Hc Otic Susp (Rx-Cortisporin (05/17/20 02:22) Rx-Hydrocodone/Apap 5-325 Mg (Rx-Vicodin (05/17/20 03:00) Medications Given in ED Current Medications Medications Dose Ordered Sig/Addis Route Start Time Stop Time Status Last Admin Dose Admin Acetaminophen/ Hydrocodone Bitart 1 ea Q4H PRN PO 05/17/20 03:00 05/17/20 03:18 DC 05/17/20 03:15 1 EA Ceftriaxone Sodium 1,000 mg ONCE ONCE IM 05/17/20 02:30 05/17/20 02:31 DC 05/17/20 02:41 1,000 MG Ketorolac Tromethamine 30 mg ONCE ONCE IM 05/17/20 02:30 05/17/20 02:31 DC 05/17/20 02:41 30 MG Lidocaine HCl 2.1 ml ONCE ONCE INJ 05/17/20 02:30 05/17/20 02:31 DC 05/17/20 02:41 2.1 ML Vital Signs/I&O 05/17/20 05/17/20 02:10 03:16 Temp 36.9 36.9 Pulse 80 72 Resp 16 16 B/P (MAP) 155/98 (117) 140/92 (117) Pulse Ox 98 O2 Delivery Room Air Room Air Blood Pressure Mean: 117 Progress Progress Note : Progress Note Patient received Toradol for pain. Take-home bottle of hydrocodone. Infection was treated with Rocephin and Cortisporin eardrops. Antibiotic was changed to Omnicef. Departure Impression Primary Impression: Otitis externa Qualified Codes: H60.501 - Unspecified acute noninfective otitis externa, right ear Disposition: HOME, SELF-CARE Condition: Improved Departure-Patient Inst. Referrals: MELANIE PRINCE DO (PCP/Family) Primary Care Physician Patient Instructions: How to Use Ear Drops, Outer Ear Infection Add. Discharge Instructions: For pain you may take ibuprofen up to 600 mg every 6 hours as needed. Add hydrocodone for pain not controlled by ibuprofen. Change your amoxicillin to Omnicef as prescribed. Continue the eardrops by placing 4 drops in the right ear every 4 hours while awake. Follow-up with your primary care provider and/or Dr. Recio as soon as possible. Call first thing Tuesday morning for an appointment. It may take several days of antibiotics to improve her symptoms significantly. Return to care if you have worsening symptoms, especially if you develop fevers or other complications. All discharge instructions reviewed with patient and/or family. Voiced understanding. Scripts Hydrocodone/Acetaminophen (Hydrocodone-Acetamin 5-325 mg) 1 Each Tablet 1 EACH PO BID, #8 TAB Prov: TABATHA PERRY MD 05/17/20 Cefdinir (Cefdinir) 300 Mg Capsule 300 MG PO BID, #20 CAP Prov: TABATHA PERRY MD 05/17/20 TABATHA PERRY MD May 17, 2020 02:52
[2020-05-17] MEDS ORDERED: RX-HYDROCODONE/APAP 5/325 MG #4 TAB PK PO PRN (03:00)
[2020-05-17 03:16] VITALS: BP 140/92
== END 2020-05-17 03:17 | disposition home or self-care (01) ==
LOC: EDUNIT# 02:06 → ER 02:08
DX: H60.91 Unspecified otitis externa, right ear (principal); E66.9 Obesity, unspecified; Z77.22 Contact with and (suspected) exposure to environmental tobacco smoke (acute) (chronic); Z88.5 Allergy status to narcotic agent; Z90.49 Acquired absence of other specified parts of digestive tract; Z82.49 Family history of ischemic heart disease and other diseases of the circulatory system; Z68.42 Body mass index [BMI] 45.0-49.9, adult
CPT/HCPCS: 99284

== ENCOUNTER 2020-10-12 13:13 | Emergency (ER) | payer BC ==
[~2020-10-12] VITALS: Ht 157 cm; Wt 132.8 kg
[~2020-10-12 13:13] MED LIST changes: +CEFD300C3 PO
[2020-10-12] MEDS ORDERED: LACTATED RINGERS 1,000 ML IV SCH (13:45)
[2020-10-12] MEDS ORDERED: LORazepam INJ 2 MG/ML (ATIVAN) VIAL IVP PRN (13:45)
[2020-10-12 13:49] LABS: BASOPHILS # (AUTO) 0.1 10^3/uL (0.0-0.1); BASOPHILS % (AUTO) 1 % (0-10); EOSINOPHILS # (AUTO) 0.6 10^3/uL (0.0-0.3); EOSINOPHILS % (AUTO) 4 % (0-10); HEMATOCRIT 50 % (35-52); HEMOGLOBIN 16.9 g/dL (11.5-16.0); LYMPHOCYTES # (AUTO) 4.3 10^3/uL (1.0-4.0); LYMPHOCYTES % (AUTO) 28 % (12-44); MEAN CORPUSCULAR HEMOGLOBIN 31 pg (25-34); MEAN CORPUSCULAR HGB CONC 34 g/dL (32-36); MEAN CORPUSCULAR VOLUME 90 fL (80-99); MEAN PLATELET VOLUME 10.4 fL (9.0-12.2); MONOCYTES # (AUTO) 0.8 10^3/uL (0.0-1.0); MONOCYTES % (AUTO) 5 % (0-12); NEUTROPHILS # (AUTO) 9.4 10^3/uL (1.8-7.8); NEUTROPHILS % (AUTO) 62 % (42-75); PLATELET COUNT 264 10^3/uL (130-400); WHITE BLOOD COUNT 15.2 10^3/uL (4.3-11.0)
[2020-10-12] MEDS ORDERED: RT-ALBUTEROL INHALER HFA (VENTOLIN HFA) 18 GM IH STA (13:51)
--- NOTE | 2020-10-12 13:51 | ED Respiratory ---
General Chief Complaint: Respiratory Problems Stated Complaint: SOA/POSSIBLE COVID EXPOSURE Source: patient Exam Limitations: no limitations History of Present Illness Date Seen by Provider: Oct 12, 2020 Time Seen by Provider: 13:29 Initial Comments Here with report of shortness of air. He did have Covid exposure 6 days ago. She is worried about Covid infection. She was seen at [facility] this morning and had Covid testing done but that will not be available for 24 to 48 hours. She became more short of breath this afternoon although is also anxious. She states that she may have some anxiety related to this. Denies fever chills. Has had some epigastric pain. Unknown for fever. Does have history of bronchitis. Timing/Duration: yesterday, getting worse Severity: moderate Prior Episodes/Possible Cause: occasional episodes Modifying Factors: Worse With Coughing; Improves With Rest Associated Symptoms: No chest pain/soreness, No cough, No fever/chills, No muscle aches; nasal congestion, shortness of breath; No wheezing; other (Chest tightness) Allergies and Home Medications Allergies Coded Allergies: fentanyl (Verified Allergy, Mild, 11/27/17) chest tightness, anxiety Home Medications Cefdinir 300 Mg Capsule, 300 MG PO BID Prescribed by: TABATHA ALCANTARA on 05/17/20 0251 Docusate Sodium 100 Mg Capsule, 100 MG PO DAILY Prescribed by: MADDIE DIAZ on 12/12/17 1238 Hydrocodone Bit/Acetaminophen 1 Tab Tab, 1 TAB PO Q4H PRN Prescribed by: MADDIE DIAZ on 12/12/17 1238 Hydrocodone/Acetaminophen 1 Each Tablet, 1 EACH PO BID Prescribed by: TABATHA ALCANTARA on 05/17/20 0252 Patient Home Medication List Home Medication List Reviewed: Yes Review of Systems Review of Systems Constitutional: see HPI EENTM: see HPI Respiratory: short of breath; No wheezing Cardiovascular: see HPI Gastrointestinal: see HPI; No nausea, No vomiting Genitourinary: no symptoms reported Musculoskeletal: no symptoms reported Skin: no symptoms reported Psychiatric/Neurological: Anxiety; Denies Weakness All Other Systems Reviewed Negative Unless Noted: Yes Past Qasktyx-Wlwxdq-Nzdvby Hx Past Med/Social Hx: Reviewed Nursing Past Med/Soc Hx Patient Social History Alcohol Use: Denies Use Alcohol Beverage of Choice: Beer Recreational Drug Use: No Smoking Status: Current Everyday Smoker Type Used: Cigarettes 2nd Hand Smoke Exposure: Yes Recent Hopitalizations: No Immunizations Up To Date Tetanus Booster (TDap): Unknown Date of Influenza Vaccine: Jul 17, 2017 Seasonal Allergies Seasonal Allergies: No Past Medical History Surgeries: Yes (D&C X2, VENTRAL HERNIA REPAIR, ) Abdominal, Appendectomy, Section, Hysterectomy, Oophorectomy Respiratory: No Cardiac: No Neurological: No 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: Yes Female 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: Menstrual Problems, 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 Sexually Transmitted Disease: No HIV/AIDS: No Genitourinary: Yes Bladder Infection, UTI-Chronic Gastrointestinal: Yes Gall Bladder Disease Musculoskeletal: No Endocrine: No (OBESITY) HEENT: No Hearing Impairment: Denies Cancer: No Psychosocial: No Integumentary: No (ABDOMINAL WALL ABSCESS) Blood Disorders: No Adverse Reaction/Blood Tranf: No Family Medical History Reviewed Nursing Family Hx Congestive heart failure 19 FATHER Family history: Cardiovascular disease 19 FATHER Family history: Diabetes mellitus 19 MOTHER Heart disease 19 MOTHER History of - respiratory disease 19 FATHER 19 MOTHER Kidney disease 19 MOTHER Physical Exam Vital Signs - First Documented 10/12/20 13:28 Temp 36.1 Pulse 78 Resp 24 B/P (MAP) 148/69 (95) Pulse Ox 97 O2 Delivery Room Air Capillary Refill : Height: 5'3.00" Weight: 284lbs. 7.0oz. 129.766661hk; 49.00 BMI Method:Stated General Appearance: WD/WN, obese HEENT: PERRL/EOMI, pharynx normal Neck: full range of motion, supple Respiratory: lungs clear, normal breath sounds Cardiovascular: regular rate, rhythm, no murmur Gastrointestinal: soft; No distended, No guarding; tenderness (Mild epigastric) Extremities: non-tender, normal inspection Neurologic/Psychiatric: alert, oriented x 3 Skin: normal color, warm/dry Progress/Results/Core Measures Suspected Sepsis SIRS Temperature: Pulse: Respiratory Rate: Laboratory Tests 10/12/20 13:35: White Blood Count 15.2H Blood Pressure / Mean: Laboratory Tests 10/12/20 13:35: Creatinine 0.66, Platelet Count 264, Total Bilirubin 0.4 Results/Orders Lab Results Laboratory Tests Test 10/12/20 13:33 10/12/20 13:35 Range/Units Coronavirus 2019 (SHANITA) Negative Negative White Blood Count 15.2 H 4.3-11.0 10^3/uL Red Blood Count 5.54 H 3.80-5.11 10^6/uL Hemoglobin 16.9 H 11.5-16.0 g/dL Hematocrit 50 35-52 % Mean Corpuscular Volume 90 80-99 fL Mean Corpuscular Hemoglobin 31 25-34 pg Mean Corpuscular Hemoglobin Concent 34 32-36 g/dL Red Cell Distribution Width 14.0 10.0-14.5 % Platelet Count 264 130-400 10^3/uL Mean Platelet Volume 10.4 9.0-12.2 fL Immature Granulocyte % (Auto) 0 % Neutrophils (%) (Auto) 62 42-75 % Lymphocytes (%) (Auto) 28 12-44 % Monocytes (%) (Auto) 5 0-12 % Eosinophils (%) (Auto) 4 0-10 % Basophils (%) (Auto) 1 0-10 % Neutrophils # (Auto) 9.4 H 1.8-7.8 10^3/uL Lymphocytes # (Auto) 4.3 H 1.0-4.0 10^3/uL Monocytes # (Auto) 0.8 0.0-1.0 10^3/uL Eosinophils # (Auto) 0.6 H 0.0-0.3 10^3/uL Basophils # (Auto) 0.1 0.0-0.1 10^3/uL Immature Granulocyte # (Auto) 0.1 0.0-0.1 10^3/uL Neutrophils % (Manual) 50 % Lymphocytes % (Manual) 40 % Monocytes % (Manual) 4 % Eosinophils % (Manual) 6 % Blood Morphology Comment NORMAL Sodium Level 139 135-145 MMOL/L Potassium Level 5.1 H 3.6-5.0 MMOL/L Chloride Level 108 H 98-107 MMOL/L Carbon Dioxide Level 19 L 21-32 MMOL/L Anion Gap 12 5-14 MMOL/L Blood Urea Nitrogen 11 7-18 MG/DL Creatinine 0.66 0.60-1.30 MG/DL Estimat Glomerular Filtration Rate > 60 BUN/Creatinine Ratio 17 Glucose Level 130 H 70-105 MG/DL Calcium Level 9.0 8.5-10.1 MG/DL Corrected Calcium 9.2 8.5-10.1 MG/DL Total Bilirubin 0.4 0.1-1.0 MG/DL Aspartate Amino Transf (AST/SGOT) 30 5-34 U/L Alanine Aminotransferase (ALT/SGPT) 22 0-55 U/L Alkaline Phosphatase 81 40-136 U/L C-Reactive Protein High Sensitivity 3.10 H 0.00-0.50 MG/DL Total Protein 7.5 6.4-8.2 GM/DL Albumin 3.7 3.2-4.5 GM/DL My Orders Orders - KRISTINA REESE MD Albuterol Inhaler (Ventolin Hfa) (10/12/20 13:51) Lidocaine 2% Viscous 15 Ml (Xylocaine Vi (10/12/20 15:15) Mylanta Po (10/12/20 15:15) Toradol 30 Mg Ivp (10/12/20 15:01) Medications Given in ED Current Medications Medications Dose Ordered Sig/Addis Route Start Time Stop Time Status Last Admin Dose Admin Lorazepam 0.5 mg ONCE PRN IVP 10/12/20 13:45 10/12/20 13:42 0.5 MG Vital Signs/I&O 10/12/20 13:28 Temp 36.1 Pulse 78 Resp 24 B/P (MAP) 148/69 (95) Pulse Ox 97 O2 Delivery Room Air Capillary Refill : Progress Note : Progress Note Seen and evaluated. IV, labs, chest x-ray, COVID-19 evaluation rapid testing only as she had confirmatory testing this morning. Ativan 0.5 mg IV ordered. LR 1 L bolus. We will give albuterol MDI 4 puffs via chamber now. Monitor patient. 1500: Rapid Covid test is negative. Patient has some stomach discomfort and thinks it may be gas. She was breathing quite heavy earlier that has resolved now. She is better after the albuterol MDI. Toradol 30 mg IV and GI cocktail given. Patient feels comfortable going home. We will initiate outpatient antibiotic treatment for bronchitis/possible pneumonia. Patient also has long history of bronchitis and we will initiate steroids. Discharged home with return precautions. Patient verbalized understanding of instructions and agreement with plan. Diagnostic Imaging Diagonstic Imaging: Xray Plain Films/CT/US/NM/MRI: chest Comments [facility]. [place], [place] NAME: KELLY CUEVA [facility] REC#: [id number] PT STATUS: REG ER : 1975 PHYSICIAN: GLENN DIAZ APRN ADMIT DATE: 10/12/20/ER Draft Date of Exam:10/12/20 CHEST 1 VIEW, AP/PA ONLY EXAMINATION: Chest radiograph, portable AP view. DATE: 10/12/2020 2:02 PM INDICATION: 45-year-old female, shortness of breath. COMPARISON: August 28, 2017. FINDINGS: Heart size and mediastinal contours are unchanged. There is no identified pneumothorax. There is no large pleural effusion. Question of subtle multifocal bilateral lung consolidation. There are technical limitations of the study relating to patient body habitus and difficulties with exposure. IMPRESSION: 1. Technically limited study relating to patient body habitus and difficulties with exposure. 2. Question of subtle multifocal lung consolidation which could be seen with atypical infectious etiology or pulmonary edema. Dictated on workstation # [id number] Dict: 10/12/20 1405 Trans: 10/12/20 1420 BANNER [id number] Interpreted by: WOODROW DUNN MD Electronically signed by: Departure Impression Primary Impression: Acute bronchitis Qualified Codes: J20.9 - Acute bronchitis, unspecified Disposition: HOME, SELF-CARE Condition: Improved Departure-Patient Inst. Decision time for Depature: 15:05 Referrals: MELANIE PRINCE DO (PCP/Family) Primary Care Physician Patient Instructions: Acute Bronchitis, Adult (DC) Add. Discharge Instructions: All discharge instructions reviewed with patient and/or family. Voiced understanding. Follow directions of [facility] regarding the COVID-19 evaluation as their test is still pending. Your test today here was negative but we need the results from the other Covid test before we can say you were confirmed nega tive. You do have findings concerning for bronchitis and we will treat that as such. Take medications as directed. Use nebulizer treatment at home every 4 hours as needed for shortness of air. Drink plenty of fluids. Get plenty of rest. You may take Tylenol and/or ibuprofen as needed for pain per package directions. Return for worse pain, fever, vomiting, weakness, breathing problems or other concerns as needed. Scripts Prednisone (Prednisone) 20 Mg Tab 40 MG PO DAILY, #10 TAB 0 Refills Prov: KRISTINA REESE MD 10/12/20 Cefdinir (Cefdinir) 300 Mg Capsule 300 MG PO BID, #14 CAP 0 Refills Prov: KRISTINA REESE MD 10/12/20 Albuterol Sulfate (Albuterol Sulfate) 2.5 Mg/3 Ml Vial.neb 2.5 MG INH Q4H PRN for WHEEZING, #50 EA 1 Refill Prov: KRISTINA REESE MD 10/12/20 KRISTINA REESE MD Oct 12, 2020 13:51
[2020-10-12 14:02] LABS: EOSINOPHILS % (MANUAL) 6 %; LYMPHOCYTES % (MANUAL) 40 %; MONOCYTES % (MANUAL) 4 %; NEUTROPHILS % (MANUAL) 50 %; RBC MORPH NORMAL
[2020-10-12 14:16] LABS: ALBUMIN 3.7 GM/DL (3.2-4.5); CHLORIDE 108 MMOL/L (98-107); POTASSIUM 5.1 MMOL/L (3.6-5.0); SODIUM 139 MMOL/L (135-145)
[2020-10-12 14:18] LABS: GLUCOSE 130 MG/DL (70-105)
[2020-10-12 14:19] LABS: TOTAL PROTEIN 7.5 GM/DL (6.4-8.2)
[2020-10-12 14:20] LABS: BILIRUBIN,TOTAL 0.4 MG/DL (0.1-1.0); CARBON DIOXIDE 19 MMOL/L (21-32)
--- NOTE | 2020-10-12 14:21 | Diagnostic Imaging Report ---
EXAMINATION: Chest radiograph, portable AP view. DATE: 10/12/2020 2:02 PM INDICATION: 45-year-old female, shortness of breath. COMPARISON: August 28, 2017. FINDINGS: Heart size and mediastinal contours are unchanged. There is no identified pneumothorax. There is no large pleural effusion. Question of subtle multifocal bilateral lung consolidation. There are technical limitations of the study relating to patient body habitus and difficulties with exposure. IMPRESSION: 1. Technically limited study relating to patient body habitus and difficulties with exposure. 2. Question of subtle multifocal lung consolidation which could be seen with atypical infectious etiology or pulmonary edema. Dictated by: Dictated on workstation # [id number]
[2020-10-12 14:22] LABS: ALKALINE PHOSPHATASE 81 U/L (40-136); CREATININE SERUM 0.66 MG/DL (0.60-1.30); GFR ESTIMATED > 60
[2020-10-12 14:23] LABS: BUN/CREATININE RATIO 17
[2020-10-12 14:25] LABS: ALANINE AMINOTRANSFERASE 22 U/L (0-55)
[2020-10-12] MEDS ORDERED: KETOROLAC 30 MG/ML VIAL IVP STA (15:01)
[2020-10-12] MEDS ORDERED: PRD20T PO (15:07)
[2020-10-12] MEDS ORDERED: ALBU2.5V4 INH (15:07)
[2020-10-12] MEDS ORDERED: CEFD300C3 PO (15:07)
[2020-10-12] MEDS ORDERED: ANTACID SUSP 30 ML UDC (MYLANTA) PO ONE (15:15)
[2020-10-12] MEDS ORDERED: LIDOCAINE 2% VISCOUS 15 ML UDC PO ONE (15:15)
[2020-10-12 15:48] VITALS: BP 110/61
== END 2020-10-12 15:48 | disposition home or self-care (01) ==
LOC: EDUNIT# 13:13 → ER 13:15
DX: J20.9 Acute bronchitis, unspecified (principal); E66.9 Obesity, unspecified; F17.210 Nicotine dependence, cigarettes, uncomplicated; Z68.42 Body mass index [BMI] 45.0-49.9, adult; Z20.828 Contact with and (suspected) exposure to other viral communicable diseases; Z82.49 Family history of ischemic heart disease and other diseases of the circulatory system; Z83.3 Family history of diabetes mellitus; Z88.8 Allergy status to other drugs, medicaments and biological substances
CPT/HCPCS: 71045; 80053; 85007; 85027; 86141; 87804; 99284; U0002; 36415; 87635

== ENCOUNTER 2021-11-09 10:45 | Emergency (ER) | payer BC ==
[~2021-11-09] VITALS: Ht 160 cm; Wt 136.1 kg
[~2021-11-09 10:45] MED LIST changes: +ALBU2.5V4 INH; +CYCL10TA25 PO; -CYCL10TA9 PO; -SULF1TAB35 PO
--- NOTE | 2021-11-09 11:11 | ED Chest Pain ---
General Chief Complaint: Respiratory Problems Stated Complaint: LIGHTHEADED,CP, Source: patient Exam Limitations: no limitations History of Present Illness Date Seen by Provider: Nov 09, 2021 Time Seen by Provider: 11:06 Initial Comments Patient is a 46-year-old female who presents ED with substernal chest pain for the past 2 weeks. Described as sharp and intermittent. Appears to be worse with eating. Patient has associated shortness of breath. She states she was sent over to the ED to rule out blood clot. She had an elevated D-dimer and white blood count. She denies of any cough, fever, vomiting, diarrhea, abdominal pain. History of smoking but no history of hypertension, diabetes, high cholesterol. Family cardiac history. She does report left leg pain for the past few months with pain behind the left knee. She states the left leg appears to be swollen. No recent travels or surgeries or history of DVT, PE or blood disorder. Denies taking medication for her symptoms. She denies of any urinary symptoms. Allergies and Home Medications Allergies Coded Allergies: fentanyl (Verified Allergy, Mild, 11/27/17) chest tightness, anxiety Patient Home Medication List Home Medication List Reviewed: Yes Albuterol Sulfate (Albuterol Sulfate) 2.5 Mg/3 Ml Vial.neb, 2.5 MG INH Q4H PRN for WHEEZING Prescribed by: KRISTINA REESE on 10/12/20 1507 Cefdinir (Cefdinir) 300 Mg Capsule, 300 MG PO BID Prescribed by: TABATHA ALCANTARA on 05/17/20 0251 Cefdinir (Cefdinir) 300 Mg Capsule, 300 MG PO BID Prescribed by: KRISTINA REESE on 10/12/20 1507 Docusate Sodium (Colace) 100 Mg Capsule, 100 MG PO DAILY Prescribed by: MADDIE DIAZ on 12/12/17 1238 Hydrocodone Bit/Acetaminophen (Lortab 5 Mg Tablet) 1 Tab Tab, 1 TAB PO Q4H PRN Prescribed by: MADDIE DIAZ on 12/12/17 1238 Hydrocodone/Acetaminophen (Hydrocodone-Acetamin 5-325 mg) 1 Each Tablet, 1 EACH PO BID Prescribed by: TABATHA ALCANTARA on 05/17/20 0252 Prednisone (Prednisone) 20 Mg Tab, 40 MG PO DAILY Prescribed by: KRISTINA REESE on 10/12/20 1507 Review of Systems Review of Systems Constitutional: No chills, No fever, No malaise EENTM: No Eye Pain, No Ear Drainage, No Ear Pain Respiratory: Denies Cough; Shortness of Air; Denies SOA With Exertion, Denies SOA at Rest Cardiovascular: Chest Pain; Denies Irregular Heart Rate Gastrointestinal: Denies Abdominal Pain, Denies Diarrhea, Denies Nausea, Denies Vomiting Genitourinary: Denies Burning, Denies Discharge Musculoskeletal: No back pain, No joint pain, No joint swelling; muscle pain, other (Left leg swelling) Skin: No change in color, No change in hair/nails Psychiatric/Neurological: Denies Depressed, Denies Numbness Endocrine: Denies Excessive Sweating Hematologic/Lymphatic: Denies Anemia, Denies Blood Clots Past Dvcarvy-Pttcmf-Ksgrly Hx Immunizations Up To Date Tetanus Booster (TDap): Unknown Seasonal Allergies Seasonal Allergies: No Past Medical History Surgeries: Yes (D&C X2, VENTRAL HERNIA REPAIR, ) Abdominal, Appendectomy, Section, Hysterectomy, Oophorectomy Respiratory: No Cardiac: No Neurological: No 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: Yes Female 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: Menstrual 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, 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 Sexually Transmitted Disease: No HIV/AIDS: No Genitourinary: Yes Bladder Infection, UTI-Chronic Gastrointestinal: Yes Gall Bladder Disease Musculoskeletal: No Endocrine: No (OBESITY) HEENT: No Hearing Impairment: Denies Cancer: No Psychosocial: No Integumentary: No (ABDOMINAL WALL ABSCESS) Blood Disorders: No Adverse Reaction/Blood Tranf: No Family Medical History Congestive heart failure 19 FATHER Family history: Cardiovascular disease 19 FATHER Family history: Diabetes mellitus 19 MOTHER Heart disease 19 MOTHER History of - respiratory disease 19 FATHER 19 MOTHER Kidney disease 19 MOTHER Physical Exam Vital Signs Vital Signs - First Documented 11/09/21 10:51 Temp 36.4 Pulse 84 Resp 11 B/P (MAP) 134/107 (116) Pulse Ox 99 O2 Delivery Room Air Capillary Refill : Height, Weight, BMI Height: 5'3.00" Weight: 284lbs. 7.0oz. 129.978032ft; 53.00 BMI Method:Stated General Appearance: No Apparent Distress, WD/WN HEENT: PERRL/EOMI, TMs Normal, Normal ENT Inspection, Pharynx Normal Neck: Full Range of Motion, Normal Inspection, Non Tender, Supple Respiratory: Chest Non Tender, Lungs Clear, Normal Breath Sounds, No Accessory Muscle Use, No Respiratory Distress Cardiovascular: Regular Rate, Rhythm, No Edema, No Gallop, No JVD, No Murmur Gastrointestinal: Normal Bowel Sounds, No Organomegaly, No Pulsatile Mass, Non Tender, Soft Extremity: Other (Left leg swelling with skin color changes of bilateral. Mild swelling to the right leg. Neurovascularly intact. Normal active range of motion bilateral knee and ankle. 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 Skin: Warm/Dry; No Cool, No Cyanosis Progress/Results/Core Measures Results/Orders Lab Results Laboratory Tests Test 11/09/21 11:04 Range/Units White Blood Count 14.1 H 4.3-11.0 10^3/uL Red Blood Count 5.42 H 3.80-5.11 10^6/uL Hemoglobin 16.4 H 11.5-16.0 g/dL Hematocrit 50 35-52 % Mean Corpuscular Volume 91 80-99 fL Mean Corpuscular Hemoglobin 30 25-34 pg Mean Corpuscular Hemoglobin Concent 33 32-36 g/dL Red Cell Distribution Width 13.9 10.0-14.5 % Platelet Count 278 130-400 10^3/uL Mean Platelet Volume 10.0 9.0-12.2 fL Immature Granulocyte % (Auto) 0 % Neutrophils (%) (Auto) 62 42-75 % Lymphocytes (%) (Auto) 29 12-44 % Monocytes (%) (Auto) 4 0-12 % Eosinophils (%) (Auto) 4 0-10 % Basophils (%) (Auto) 1 0-10 % Neutrophils # (Auto) 8.7 H 1.8-7.8 10^3/uL Lymphocytes # (Auto) 4.1 H 1.0-4.0 10^3/uL Monocytes # (Auto) 0.6 0.0-1.0 10^3/uL Eosinophils # (Auto) 0.6 H 0.0-0.3 10^3/uL Basophils # (Auto) 0.1 0.0-0.1 10^3/uL Immature Granulocyte # (Auto) 0.1 0.0-0.1 10^3/uL Neutrophils % (Manual) 50 % Lymphocytes % (Manual) 20 % Monocytes % (Manual) 4 % Eosinophils % (Manual) 5 % Basophils % (Manual) 0 % Band Neutrophils 0 % Reactive Lymphocytes 21 % Blood Morphology Comment NORMAL Prothrombin Time 13.0 12.2-14.7 SEC INR Comment 0.9 0.8-1.4 Activated Partial Thromboplast Time 27 24-35 SEC Sodium Level 143 135-145 MMOL/L Potassium Level 3.8 3.6-5.0 MMOL/L Chloride Level 106 98-107 MMOL/L Carbon Dioxide Level 23 21-32 MMOL/L Anion Gap 14 5-14 MMOL/L Blood Urea Nitrogen 12 7-18 MG/DL Creatinine 0.62 0.60-1.30 MG/DL Estimat Glomerular Filtration Rate 113 BUN/Creatinine Ratio 19 Glucose Level 134 H 70-105 MG/DL Calcium Level 9.1 8.5-10.1 MG/DL Corrected Calcium 9.3 8.5-10.1 MG/DL Magnesium Level 1.9 1.6-2.4 MG/DL Total Bilirubin 0.5 0.1-1.0 MG/DL Aspartate Amino Transf (AST/SGOT) 12 5-34 U/L Alanine Aminotransferase (ALT/SGPT) 20 0-55 U/L Alkaline Phosphatase 83 40-136 U/L Myoglobin 37.0 10.0-92.0 NG/ML Troponin I < 0.028 <0.028 NG/ML B-Type Natriuretic Peptide 17.5 <100.0 PG/ML Total Protein 7.1 6.4-8.2 GM/DL Albumin 3.8 3.2-4.5 GM/DL My Orders Orders - MOO MARIEE Ekg Tracing (11/09/21 10:53) Cbc With Automated Diff (11/09/21 11:02) Magnesium (11/09/21 11:02) Comprehensive Metabolic Panel (11/09/21 11:02) Myoglobin Serum (11/09/21 11:02) Protime With Inr (11/09/21 11:02) Partial Thromboplastin Time (11/09/21 11:02) Monitor-Rhythm Ecg Trace Only (11/09/21 11:02) Ed Iv/Invasive Line Start (11/09/21 11:02) Bnp [place] (11/09/21 11:02) Aspirin Chewable Tablet (Baby Aspirin Ch (11/09/21 11:15) Ct Angio Chest W (11/09/21 11:02) Us Venous Lower Ext Lt (11/09/21 11:02) Manual Differential (11/09/21 11:04) Troponin I [place] (11/09/21 11:04) Lorazepam Tablet (Ativan Tablet) (11/09/21 11:29) Iohexol Injection (Omnipaque 350 Mg/Ml 1 (11/09/21 11:45) Received Contrast (Hold Metformin- Contr (11/09/21 11:45) Ns (Ivpb) (Sodium Chloride 0.9% Ivpb Bag (11/09/21 11:45) Medications Given in ED Current Medications Medications Dose Ordered Sig/Addis Route Start Time Stop Time Status Last Admin Dose Admin Aspirin 324 mg ONCE ONCE PO 11/09/21 11:15 11/09/21 11:16 DC 11/09/21 11:39 324 MG Iohexol 100 ml ONCE ONCE IV 11/09/21 11:45 11/09/21 11:46 DC 11/09/21 11:46 100 ML Sodium Chloride 100 ml ONCE ONCE IV 11/09/21 11:45 11/09/21 11:46 DC 11/09/21 11:46 80 ML Vital Signs/I&O 11/09/21 11/09/21 10:51 12:45 Temp 36.4 Pulse 84 71 Resp 11 12 B/P (MAP) 134/107 (116) 109/66 Pulse Ox 99 96 O2 Delivery Room Air Room Air Comment Sinus rhythm, 70 bpm, QRS duration 92 MS, QTC 454 MS Departure Communication (PCP) Patient EKG sinus rhythm. No evidence of ST elevation, depression. Cardiac enzymes unremarkable. Outpatient elevated D-dimer. CT angio of the chest negative for PE, pneumonia, pneumothorax. Left lower leg ultrasound was nega tive for DVT. Cardiac enzymes unremarkable. Lab work shows slightly elevated white blood count. Recently stopped smoking. Family cardiac history. HEART score 2. Patient has no current chest pain. She states she feels anxious and was given Ativan. Due to the length of symptoms currently asymptomatic with negative work-up patient can follow-up outpatient at this time. Return precaution were discussed with patient. Consider PPI. She has no abdominal tenderness. Return precaution were discussed patient Impression Primary Impression: Chest pain Disposition: HOME, SELF-CARE Condition: Stable Departure-Patient Inst. Decision time for Depature: 12:36 Referrals: [facility] (PCP) Primary Care Physician BINA JUAREZ (Family) Primary Care Physician Patient Instructions: Chest Pain MOO MARIEE Nov 09, 2021 11:11
[2021-11-09 11:12] LABS: BASOPHILS # (AUTO) 0.1 10^3/uL (0.0-0.1); BASOPHILS % (AUTO) 1 % (0-10); EOSINOPHILS # (AUTO) 0.6 10^3/uL (0.0-0.3); EOSINOPHILS % (AUTO) 4 % (0-10); HEMATOCRIT 50 % (35-52); HEMOGLOBIN 16.4 g/dL (11.5-16.0); LYMPHOCYTES # (AUTO) 4.1 10^3/uL (1.0-4.0); LYMPHOCYTES % (AUTO) 29 % (12-44); MEAN CORPUSCULAR HEMOGLOBIN 30 pg (25-34); MEAN CORPUSCULAR HGB CONC 33 g/dL (32-36); MEAN CORPUSCULAR VOLUME 91 fL (80-99); MONOCYTES # (AUTO) 0.6 10^3/uL (0.0-1.0); MONOCYTES % (AUTO) 4 % (0-12); NEUTROPHILS # (AUTO) 8.7 10^3/uL (1.8-7.8); NEUTROPHILS % (AUTO) 62 % (42-75); PLATELET COUNT 278 10^3/uL (130-400); WHITE BLOOD COUNT 14.1 10^3/uL (4.3-11.0)
[2021-11-09] MEDS ORDERED: ASPIRIN 81 MG CHEW (CHILDREN'S ASA) PO ONE (11:15)
[2021-11-09 11:20] LABS: INR 0.9 (0.8-1.4)
[2021-11-09 11:23] LABS: ALBUMIN 3.8 GM/DL (3.2-4.5); CHLORIDE 106 MMOL/L (98-107); POTASSIUM 3.8 MMOL/L (3.6-5.0); SODIUM 143 MMOL/L (135-145)
[2021-11-09 11:24] LABS: CALCIUM 9.1 MG/DL (8.5-10.1)
[2021-11-09 11:25] LABS: GLUCOSE 134 MG/DL (70-105); TOTAL PROTEIN 7.1 GM/DL (6.4-8.2)
[2021-11-09 11:26] LABS: CARBON DIOXIDE 23 MMOL/L (21-32)
[2021-11-09 11:27] LABS: BILIRUBIN,TOTAL 0.5 MG/DL (0.1-1.0)
[2021-11-09 11:29] LABS: ALKALINE PHOSPHATASE 83 U/L (40-136); BAND NEUTROPHILS 0 %; BASOPHILS % (MANUAL) 0 %; CREATININE SERUM 0.62 MG/DL (0.60-1.30); EOSINOPHILS % (MANUAL) 5 %; GFR ESTIMATED 113; LYMPHOCYTES % (MANUAL) 20 %; MONOCYTES % (MANUAL) 4 %; NEUTROPHILS % (MANUAL) 50 %; RBC MORPH NORMAL; REACTIVE LYMPHOCYTES 21 %
[2021-11-09] MEDS ORDERED: LORazepam 0.5 MG (ATIVAN) TABLET PO STA (11:29)
[2021-11-09 11:30] LABS: BUN/CREATININE RATIO 19
[2021-11-09 11:32] LABS: ALANINE AMINOTRANSFERASE 20 U/L (0-55); MAGNESIUM 1.9 MG/DL (1.6-2.4)
--- NOTE | 2021-11-09 11:42 | Diagnostic Imaging Report ---
INDICATION: Leg pain and swelling. COMPARISON: None. TECHNIQUE: Duplex, monaco-scale and color-flow imaging of the left lower extremity venous system was performed. FINDINGS: The common femoral vein, superficial femoral vein, profunda femoris, and popliteal veins are normal. These vessels show normal compressibility, color flow, and doppler augmentation. The deep calf veins, although not very well seen, demonstrate no distinct intraluminal thrombus. IMPRESSION: Negative venous Doppler of the left lower extremity. Dictated by: Dictated on workstation # [id number]
[2021-11-09] MEDS ORDERED: IOHEXOL 350 MG/ML 100 ML (OMNIPAQUE 350) VIAL IV ONE (11:45)
[2021-11-09] MEDS ORDERED: HOLD METFORMIN - RECEIVED CONTRAST 20 ML VIAL IV SCH (11:45)
[2021-11-09] MEDS ORDERED: NS 100 ML (IVPB) BAG IV ONE (11:45)
--- NOTE | 2021-11-09 12:07 | Diagnostic Imaging Report ---
PROCEDURE: CT angiography of the chest with contrast. TECHNIQUE: Multiple contiguous axial images were obtained through the chest after uneventful bolus administration of intravenous contrast. 3D reconstructed CTA MIP acquisitions were also performed. Auto Exposure Controls were utilized during the CT exam to meet ALARA standards for radiation dose reduction. INDICATION: Dyspnea, chest pain and elevated D-dimer. There is good opacification of pulmonary arteries without intraluminal filling defect identified. Thoracic aorta is of normal caliber. Lungs are clear and well expanded. There is no significant pleural or pericardial fluid. Similar to older studies dating back to 04/25/2014, nodules are seen in the region of the left adrenal gland without appreciable change. 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 IMPRESSION: No CTA evidence of acute pulmonary embolism or other acute abnormality in the thorax. Otherwise, continued benign type nodules are seen in left upper quadrant of the abdomen. Dictated by: Dictated on workstation # [id number]
[2021-11-09 12:45] VITALS: BP 109/66
== END 2021-11-09 12:45 | disposition home or self-care (01) ==
LOC: EDUNIT# 10:45 → ER 10:47
DX: R07.9 Chest pain, unspecified (principal)
CPT/HCPCS: 36415; 71275; 80053; 83735; 83874; 83880; 84484; 85007; 85027; 85610; 85730; 93005; 93041

== ENCOUNTER 2022-07-21 14:43 | Emergency (ER) | payer BC ==
[~2022-07-21] VITALS: Ht 160 cm; Wt 136.0 kg
[2022-07-21 15:11] LABS: BASOPHILS # (AUTO) 0.1 10^3/uL (0.0-0.1); BASOPHILS % (AUTO) 1 % (0-10); EOSINOPHILS # (AUTO) 0.6 10^3/uL (0.0-0.3); EOSINOPHILS % (AUTO) 4 % (0-10); HEMATOCRIT 51 % (35-52); HEMOGLOBIN 17.2 g/dL (11.5-16.0); LYMPHOCYTES # (AUTO) 5.4 10^3/uL (1.0-4.0); LYMPHOCYTES % (AUTO) 34 % (12-44); MEAN CORPUSCULAR HEMOGLOBIN 30 pg (25-34); MEAN CORPUSCULAR HGB CONC 34 g/dL (32-36); MEAN CORPUSCULAR VOLUME 90 fL (80-99); MEAN PLATELET VOLUME 10.4 fL (9.0-12.2); MONOCYTES # (AUTO) 0.8 10^3/uL (0.0-1.0); MONOCYTES % (AUTO) 5 % (0-12); NEUTROPHILS % (AUTO) 57 % (42-75); PLATELET COUNT 274 10^3/uL (130-400); WHITE BLOOD COUNT 15.9 10^3/uL (4.3-11.0)
[2022-07-21] MEDS ORDERED: RT-ALBUTEROL HFA 8.5 GM INHALER IH STA (15:25)
[2022-07-21 15:28] LABS: ALBUMIN 3.9 GM/DL (3.2-4.5); PROTHROMBIN TIME PATIENT 13.1 SEC (12.2-14.7)
[2022-07-21 15:29] LABS: POTASSIUM 3.8 MMOL/L (3.6-5.0)
[2022-07-21 15:30] LABS: CALCIUM 9.2 MG/DL (8.5-10.1)
[2022-07-21 15:31] LABS: TOTAL PROTEIN 7.3 GM/DL (6.4-8.2)
[2022-07-21 15:33] LABS: BILIRUBIN,TOTAL 0.4 MG/DL (0.1-1.0)
[2022-07-21 15:35] LABS: CREATININE SERUM 0.63 MG/DL (0.60-1.30)
[2022-07-21 15:37] LABS: MAGNESIUM 1.7 MG/DL (1.6-2.4)
[2022-07-21 15:40] LABS: EOSINOPHILS % (MANUAL) 3 %; LYMPHOCYTES % (MANUAL) 34 %; MONOCYTES % (MANUAL) 3 %; NEUTROPHILS % (MANUAL) 60 %; RBC MORPH NORMAL
--- NOTE | 2022-07-21 16:01 | Diagnostic Imaging Report ---
INDICATION: Cough, two-day history of chest pain, shortness of air, and fever. FINDINGS: Body habitus limits radiographic sensitivity. No focal consolidation. There may be some mild interstitial opacity bilaterally on a diffuse basis; however, this is uncertain. Heart size is upper limits. No overt vascular congestion. There is no pleural fluid. IMPRESSION: Stable upper limits heart size. Equivocal findings for mild diffuse interstitial opacities, edema versus interstitial pneumonia. No pleural fluid, pneumothorax, or focal abnormality. Dictated by: Dictated on workstation # [id number]
--- NOTE | 2022-07-21 16:06 | ED Chest Pain ---
General Chief Complaint: Chest Pain Stated Complaint: CHEST/BACK PAIN SOA RIGHT ARM NUMBNESS Nursing Triage Note: CHEST PAIN X2 DAYS. ALSO HAVING A COUGH, SOA, FEVER, AND BACK OF NECK HURTS. SENT HERE FROM [facility]. TESTED TODAY FOR COVID AND IT WAS NEG. Source: patient Exam Limitations: no limitations (DALTON PERDOMO) History of Present Illness Date Seen by Provider: Jul 21, 2022 Time Seen by Provider: 15:00 Initial Comments This is a 47 y/o female who presents with chest pain, head ache, and right arm numbness/weakness. Onset of head ache was one week ago. Patient states that it began in her neck and then spread globally. Onset of chest pain and arm symptoms on 07/19/22. Patient reports that two weeks ago she noticed right arm numbness but otherwise denies previous occurrences. States that the chest pain feels like tightness. Reports associated symptoms of SOA and nausea. Denies vomiting or cough. Patient states in the past she has used an inhaler to help with SOA but has not used one recently/regularly. Timing/Duration: 1 week Severity/Quality: moderate Location: central Radiation: arms (right arm) Activities at Onset: none Prior CP/Workup: no prior chest pain ASA po CHIEF OF INTERNAL MEDICINE: No NTG SL CHIEF OF INTERNAL MEDICINE: No Associated Symptoms: headache, shortness of breath, weakness (right arm weakness) (DALTON PERDOMO) Allergies and Home Medications Allergies Coded Allergies: fentanyl (Verified Allergy, Mild, 11/27/17) chest tightness, anxiety Patient Home Medication List Home Medication List Reviewed: Yes (DALTON PERDOMO) Albuterol Sulfate (Albuterol Sulfate) 2.5 Mg/3 Ml Vial.neb, 2.5 MG INH Q4H PRN for WHEEZING Prescribed by: KRISTINA REESE on 10/12/20 1507 Azithromycin (Azithromycin) 250 Mg Tablet, 250 MG PO UD Prescribed by: TABATHA ALCANTARA on 07/21/22 182 Cefdinir (Cefdinir) 300 Mg Capsule, 300 MG PO BID Prescribed by: TABATHA ALCANTARA on 05/17/20 0251 Cefdinir (Cefdinir) 300 Mg Capsule, 300 MG PO BID Prescribed by: KRISTINA REESE on 10/12/20 1507 Docusate Sodium (Colace) 100 Mg Capsule, 100 MG PO DAILY Prescribed by: MADDIE DIAZ on 12/12/17 1238 Hydrocodone Bit/Acetaminophen (Lortab 5 Mg Tablet) 1 Tab Tab, 1 TAB PO Q4H PRN Prescribed by: MADDIE DIAZ on 12/12/17 1238 Hydrocodone/Acetaminophen (Hydrocodone-Acetamin 5-325 mg) 1 Each Tablet, 1 EACH PO BID Prescribed by: TABATHA ALCANTARA on 05/17/20 0252 Prednisone (Prednisone) 20 Mg Tab, 40 MG PO DAILY Prescribed by: KRISTINA REESE on 10/12/20 1507 Review of Systems Review of Systems Constitutional: weakness (right arm weakness) Respiratory: Denies Cough; Shortness of Air Cardiovascular: Chest Pain Gastrointestinal: Nausea; Denies Vomiting Genitourinary: No Symptoms Reported Musculoskeletal: no symptoms reported Skin: no symptoms reported Psychiatric/Neurological: No Symptoms Reported Endocrine: No Symptoms Reported Hematologic/Lymphatic: No Symptoms Reported (DALTON PERDOMO) All Other Systems Reviewed Negative Unless Noted: Yes (DALTON PERDOMO) Past Bmriiys-Izdfhc-Kbljcr Hx Patient Social History Tobacco Use?: Yes Tobacco type used: Cigarettes Smoking Status: Current Everyday Smoker Substance use?: No Alcohol Use?: No (DALTON PERDOMO) Immunizations Up To Date Tetanus Booster (TDap): Unknown Second COVID19 Vaccination Chang: [facility] 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 (DALTON PERDOMO) Seasonal Allergies Seasonal Allergies: No (DALTON PERDOMO) Past Medical History Surgeries: Yes (D&C X2, VENTRAL HERNIA REPAIR, ) Abdominal, Appendectomy, Section, Hysterectomy, Oophorectomy Respiratory: No Cardiac: No Neurological: No 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: Yes Female 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: Menstrual Problems, 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 Sexually Transmitted Disease: No HIV/AIDS: No Genitourinary: Yes Bladder Infection, UTI-Chronic Gastrointestinal: Yes Gall Bladder Disease Musculoskeletal: No Endocrine: No (OBESITY) HEENT: No Hearing Impairment: Denies Cancer: No Psychosocial: No Integumentary: No (ABDOMINAL WALL ABSCESS) Blood Disorders: No Adverse Reaction/Blood Tranf: No (DALTON PERDOMO) Family Medical History Congestive heart failure 19 FATHER Family history: Cardiovascular disease 19 FATHER Family history: Diabetes mellitus 19 MOTHER Heart disease 19 MOTHER History of - respiratory disease 19 FATHER 19 MOTHER Kidney disease 19 MOTHER Physical Exam Vital Signs Vital Signs - First Documented 07/21/22 14:50 Temp 36.4 Pulse 78 Resp 16 B/P (MAP) 141/89 (106) Pulse Ox 97 (TABATHA RAGLAND MD) Vital Signs Capillary Refill : Less Than 3 Seconds (DALTON PERDOMO) Height, Weight, BMI Height: 5'3.00" Weight: 284lbs. 7.0oz. 129.070474cs; 53.00 BMI Method:Stated General Appearance: No Apparent Distress, WD/WN Neck: Normal Inspection, Other (mild posterior tenderness with palpation) Respiratory: No Accessory Muscle Use, No Respiratory Distress, Decreased Breath Sounds (diffuse) Cardiovascular: Regular Rate, Rhythm Gastrointestinal: Normal Bowel Sounds, Non Tender, Soft Extremity: Normal Inspection Neurologic/Psychiatric: Alert, Oriented x3, No Motor/Sensory Deficits, Normal Mood/Affect Skin: Normal Color, Warm/Dry Lymphatic: No Adenopathy Other comments Exam performed by Dr. Ragland dictated to me. (DALTON PERDOMO) Progress/Results/Core Measures Results/Orders Lab Results Laboratory Tests Test 07/21/22 14:57 Range/Units White Blood Count 15.9 H 4.3-11.0 10^3/uL Red Blood Count 5.71 H 3.80-5.11 10^6/uL Hemoglobin 17.2 H 11.5-16.0 g/dL Hematocrit 51 35-52 % Mean Corpuscular Volume 90 80-99 fL Mean Corpuscular Hemoglobin 30 25-34 pg Mean Corpuscular Hemoglobin Concent 34 32-36 g/dL Red Cell Distribution Width 14.1 10.0-14.5 % Platelet Count 274 130-400 10^3/uL Mean Platelet Volume 10.4 9.0-12.2 fL Immature Granulocyte % (Auto) 0 % Neutrophils (%) (Auto) 57 42-75 % Lymphocytes (%) (Auto) 34 12-44 % Monocytes (%) (Auto) 5 0-12 % Eosinophils (%) (Auto) 4 0-10 % Basophils (%) (Auto) 1 0-10 % Neutrophils # (Auto) 9.0 H 1.8-7.8 10^3/uL Lymphocytes # (Auto) 5.4 H 1.0-4.0 10^3/uL Monocytes # (Auto) 0.8 0.0-1.0 10^3/uL Eosinophils # (Auto) 0.6 H 0.0-0.3 10^3/uL Basophils # (Auto) 0.1 0.0-0.1 10^3/uL Immature Granulocyte # (Auto) 0.1 0.0-0.1 10^3/uL Neutrophils % (Manual) 60 % Lymphocytes % (Manual) 34 % Monocytes % (Manual) 3 % Eosinophils % (Manual) 3 % Blood Morphology Comment NORMAL Prothrombin Time 13.1 12.2-14.7 SEC INR Comment 1.0 0.8-1.4 Activated Partial Thromboplast Time 27 24-35 SEC D-Dimer 0.68 H 0.00-0.49 UG/ML Sodium Level 139 135-145 MMOL/L Potassium Level 3.8 3.6-5.0 MMOL/L Chloride Level 105 98-107 MMOL/L Carbon Dioxide Level 24 21-32 MMOL/L Anion Gap 10 5-14 MMOL/L Blood Urea Nitrogen 8 7-18 MG/DL Creatinine 0.63 0.60-1.30 MG/DL Estimat Glomerular Filtration Rate 111 BUN/Creatinine Ratio 13 Glucose Level 83 70-105 MG/DL Calcium Level 9.2 8.5-10.1 MG/DL Corrected Calcium 9.3 8.5-10.1 MG/DL Magnesium Level 1.7 1.6-2.4 MG/DL Total Bilirubin 0.4 0.1-1.0 MG/DL Aspartate Amino Transf (AST/SGOT) 18 5-34 U/L Alanine Aminotransferase (ALT/SGPT) 26 0-55 U/L Alkaline Phosphatase 79 40-136 U/L Myoglobin 42.3 10.0-92.0 NG/ML Troponin I < 0.028 <0.028 NG/ML C-Reactive Protein High Sensitivity 2.91 H 0.00-0.50 MG/DL B-Type Natriuretic Peptide 12.2 <100.0 PG/ML Total Protein 7.3 6.4-8.2 GM/DL Albumin 3.9 3.2-4.5 GM/DL (TABATHA RAGLAND MD) My Orders Orders - TABATHA RAGLAND MD Ekg Tracing (07/21/22 14:50) Cbc With Automated Diff (07/21/22 15:06) Magnesium (07/21/22 15:06) Chest 1 View, Ap/Pa Only (07/21/22 15:06) Comprehensive Metabolic Panel (07/21/22 15:06) Myoglobin Serum (07/21/22 15:06) Protime With Inr (07/21/22 15:06) Partial Thromboplastin Time (07/21/22 15:06) O2 (07/21/22 15:06) Monitor-Rhythm Ecg Trace Only (07/21/22 15:06) Ed Iv/Invasive Line Start (07/21/22 15:06) Troponin I [place] (07/21/22 15:06) Manual Differential (07/21/22 14:57) Albuterol Inhaler (Albuterol) (07/21/22 15:25) Fibrin Degradation Products (07/21/22 15:25) Bnp [place] (07/21/22 16:11) Hs C Reactive Protein (07/21/22 16:11) Ct Angio Chest W (07/21/22 16:11) Ct Head/Cervical Spine Wo (07/21/22 16:11) Iohexol Injection (Omnipaque 350 Mg/Ml 1 (07/21/22 17:00) Received Contrast (Hold Metformin- Contr (07/21/22 17:00) Ns (Ivpb) (Sodium Chloride 0.9% Ivpb Bag (07/21/22 17:00) Aspirin Tablet (Aspirin Tablet) (07/21/22 18:30) (TABATHA RAGLAND MD) Medications Given in ED Current Medications Medications Dose Ordered Sig/Addis Route Start Time Stop Time Status Last Admin Dose Admin Aspirin 325 mg ONCE ONCE PO 07/21/22 18:30 07/21/22 18:31 DC 07/21/22 18:33 325 MG Iohexol 100 ml ONCE ONCE IV 07/21/22 17:00 07/21/22 17:01 DC 07/21/22 17:10 88 ML Sodium Chloride 100 ml ONCE ONCE IV 07/21/22 17:00 07/21/22 17:01 DC 07/21/22 17:10 80 ML (TABATHA RAGLAND MD) Vital Signs/I&O 07/21/22 14:50 Temp 36.4 Pulse 78 Resp 16 B/P (MAP) 141/89 (106) Pulse Ox 97 (TABATHA RAGLAND MD) Blood Pressure Mean: 106 Initial ECG Impression Date: Jul 21, 2022 Initial ECG Impression Time: 14:54 Initial ECG Rate: 79 Initial ECG Rhythm: Normal Sinus Initial ECG Intervals: Normal Initial ECG Impression: Normal Comment Normal sinus rhythm with no ST elevation or depression. No abnormal intervals or axis deviation. (TABATHA RAGLAND MD) Diagnostic Imaging Diagonstic Imaging: Xray Plain Films/CT/US/NM/MRI: chest Comments NAME: KELLY DUFFY [facility] REC#: [id number] PT STATUS: REG ER : 1975 PHYSICIAN: TABATHA RAGLAND MD ADMIT DATE: 07/21/22/ER Draft Date of Exam:07/21/22 CHEST 1 VIEW, AP/PA ONLY INDICATION: Cough, two-day history of chest pain, shortness of air, and fever. FINDINGS: Body habitus limits radiographic sensitivity. No focal consolidation. There may be some mild interstitial opacity bilaterally on a diffuse basis; however, this is uncertain. Heart size is upper limits. No overt vascular congestion. There is no pleural fluid. IMPRESSION: Stable upper limits heart size. Equivocal findings for mild diffuse interstitial opacities, edema versus interstitial pneumonia. No pleural fluid, pneumothorax, or focal abnormality. Dictated on workstation # [id number] Dict: 07/21/22 1549 Trans: 07/21/22 1601 [id number] Interpreted by: JACKIE GAN Electronically signed by: (DALTON PERDOMO) Departure Impression Primary Impression: Atypical chest pain Additional Impressions: Shortness of breath Brain cyst Arm paresthesia, right Right arm weakness Disposition: 01 HOME, SELF-CARE Condition: Stable Departure-Patient Inst. Decision time for Depature: 18:15 (TABATHA RAGLAND MD) Referrals: [facility] (PCP/Family) Primary Care Physician Patient Instructions: Paresthesia (DC), Chest Pain Add. Discharge Instructions: Follow-up with your primary care provider soon as possible. It is important to understand that you are cardiac evaluation is not complete in the emergency room. You need to discuss your risk factors and further work-up with your primary care provider. In the meantime work on healthy lifestyle changes such as quitting smoking and weight loss. Take aspirin 81 mg daily until otherwise instructed. For your pain take Tylenol (acetaminophen) up to 1000 mg every 6 hours as needed. There is possibly very subtle indication of pneumonia on your CT scan. Complete your antibiotics as prescribed. It is possible your chest pain could be caused by acid reflux. Take an antacid such as omeprazole 20 mg or Pepcid (famotidine) 20 mg twice daily for the next couple of weeks. Report results to your primary care provider. In addition avoid the following things that can worsen acid reflux: Eating large meals, eating close to bedtime, caffeine, carbonation, chocolate, citrus fruits and juices, tomato products, alcohol, tobacco, NSAID medications such as ibuprofen or naproxen, mints, spicy food, fatty/greasy foods, or anything else you know irritates your stomach. For your shortness of breath you may use the albuterol inhaler up to 4 puffs in a 4-hour period of time. Albuterol will be much more effective if you use the spacer chamber. The exact cause of your intermittent right arm weakness and numbness (paresthesia) is uncertain. There is a cyst on the left side of your brain w hich you should discuss with your primary care provider. It is unlikely this is directly related to your right arm symptoms but that should be discussed further in follow-up. If those symptoms persist, further evaluation with MRI of the brain and cervical spine should be pursued. Return to the emergency room if you have worsening symptoms despite following these instructions. All discharge instructions reviewed with patient and/or family. Voiced understanding. Scripts Azithromycin (Azithromycin) 250 Mg Tablet 250 MG PO UD, #6 TAB TAKE 2 TABLETS ON DAY ONE THEN TAKE 1 TABLET DAILY FOR FOUR MORE DAYS Prov: TABATHA RAGLAND MD 07/21/22 DALTON PERDOMO Jul 21, 2022 16:06 TABATHA RAGLAND MD Jul 21, 2022 17:59
[2022-07-21] MEDS ORDERED: HOLD METFORMIN - RECEIVED CONTRAST 20 ML VIAL IV SCH (17:00)
[2022-07-21] MEDS ORDERED: NS 100 ML (IVPB) BAG IV ONE (17:00)
[2022-07-21] MEDS ORDERED: IOHEXOL 350 MG/ML 100 ML (OMNIPAQUE 350) VIAL IV ONE (17:00)
--- NOTE | 2022-07-21 17:18 | Diagnostic Imaging Report ---
PROCEDURE: CT head and CT cervical spine without contrast. TECHNIQUE: Multiple contiguous axial images were obtained through the brain and cervical spine without the use of intravenous contrast. Sagittal and coronal reformations through the cervical spine were then performed. Auto Exposure Controls were utilized during the CT exam to meet ALARA standards for radiation dose reduction. INDICATION: Fever, head and neck pain. FINDINGS: CT HEAD: There is a right arachnoid cyst at the left middle cranial fossa. The ventricles are normal in size, shape and position. There are no masses or hemorrhages. IMPRESSION: Left temporal arachnoid cyst. No acute abnormality is seen in the head. CT CERVICAL SPINE: Vertebral body alignment is normal. There are no fractures seen. There are degenerative disc changes with disc space narrowing at C5-C6. IMPRESSION: Degenerative disc changes at C5-C6. No acute abnormality seen in the cervical spine. Dictated by: Dictated on workstation # [id number]
--- NOTE | 2022-07-21 17:19 | Diagnostic Imaging Report ---
PROCEDURE: CT angiography of the chest with contrast. TECHNIQUE: Multiple contiguous axial images were obtained through the chest after uneventful bolus administration of intravenous contrast. 3D reconstructed CTA MIP acquisitions were also performed. Auto Exposure Controls were utilized during the CT exam to meet ALARA standards for radiation dose reduction. INDICATION: Shortness of breath, chest pain. FINDINGS: Lungs are clear. There is minimal calcific atherosclerosis of the aorta. There is no aneurysm or dissection. There is no evidence of right ventricular strain. There are no pulmonary emboli. There are no effusions or pneumothoraces. IMPRESSION: Negative CTA chest. Dictated by: Dictated on workstation # [id number]
[2022-07-21] MEDS ORDERED: AZIT250T12 PO (18:21)
[2022-07-21] MEDS ORDERED: ASPIRIN 325 MG (5 GR) TABLET PO ONE (18:30)
[2022-07-21 18:35] VITALS: BP 134/78
== END 2022-07-21 18:35 | disposition home or self-care (01) ==
LOC: EDUNIT# 14:43 → ER 14:45
DX: G93.0 Cerebral cysts (principal); R20.2 Paresthesia of skin; R07.89 Other chest pain; R06.02 Shortness of breath; R53.1 Weakness; E66.9 Obesity, unspecified; F17.210 Nicotine dependence, cigarettes, uncomplicated; Z68.43 Body mass index [BMI] 50.0-59.9, adult
CPT/HCPCS: 36415; 70450; 71045; 71275; 72125; 80053; 83735; 83874; 83880; 84484; 85007; 85027; 85379; 85610; 85730; 86141; 93005; 93041

== ENCOUNTER 2022-09-11 19:10 | Emergency (ER) | payer BC ==
[~2022-09-11] VITALS: Ht 160 cm; Wt 131.5 kg
[~2022-09-11 19:10] MED LIST changes: +AZIT250T12 PO
[2022-09-11] MEDS ORDERED: LACTATED RINGERS 1,000 ML IV ONE (20:30)
--- NOTE | 2022-09-11 20:39 | ED Abdominal Pain ---
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 NORMAL BM TODAY NO SHORTNESS OF BREATH OR COUGH NO FEVER NO RELIEF WITH IBUPROFEN X 1 DOSE A COUPLE OF HOURS AGO. NO HISTORY OF SIMILAR DENIES ANY PRIOR GI PROBLEMS SHE HAS HAD HYSTERECTOMY/BSO AND HAD ANOTHER SURGERY AFTER THAT ( ?INFECTION OR ADHESIONS?), HERNIA REPAIRS WITH REVISIONS; CHOLECYSTECTOMY, APPENDECTOMY DENIES ANY MEDICAL PROBLEMS AND TAKES NO MEDICATIONS. PCP: DR. PRINCE Allergies and Home Medications Allergies Coded Allergies: fentanyl (Verified Allergy, Mild, 11/27/17) chest tightness, anxiety Patient Home Medication List Albuterol Sulfate (Albuterol Sulfate) 2.5 Mg/3 Ml Vial.neb, 2.5 MG INH Q4H PRN for WHEEZING Prescribed by: KRISTINA REESE on 10/12/20 1507 Azithromycin (Azithromycin) 250 Mg Tablet, 250 MG PO UD Prescribed by: TBAATHA ALCANTARA on 07/21/22 1821 Cefdinir (Cefdinir) 300 Mg Capsule, 300 MG PO BID Prescribed by: TABATHA ALCANTARA on 05/17/20 0251 Cefdinir (Cefdinir) 300 Mg Capsule, 300 MG PO BID Prescribed by: KRISTINA REESE on 10/12/20 1507 Docusate Sodium (Colace) 100 Mg Capsule, 100 MG PO DAILY Prescribed by: MADDIE DIAZ on 12/12/17 1238 Hydrocodone Bit/Acetaminophen (Lortab 5 Mg Tablet) 1 Tab Tab, 1 TAB PO Q4H PRN Prescribed by: MADIDE DIAZ on 12/12/17 1238 Hydrocodone/Acetaminophen (Hydrocodone-Acetamin 5-325 mg) 1 Each Tablet, 1 EACH PO BID Prescribed by: TABATHA ALCANTARA on 05/17/20 0252 Prednisone (Prednisone) 20 Mg Tab, 40 MG PO DAILY Prescribed by: KRISTINA REESE on 10/12/20 1507 Review of Systems Review of Systems Constitutional: no symptoms reported EENTM: No Symptoms Reported Respiratory: See HPI; Denies Cough, Denies Shortness of Air Cardiovascular: See HPI, Chest Pain Gastrointestinal: See HPI, Abdominal Pain; Denies Constipated, Denies Diarrhea; Nausea, Vomiting Genitourinary: No Symptoms Reported Musculoskeletal: see HPI, back pain Skin: no symptoms reported; No rash Psychiatric/Neurological: No Symptoms Reported Endocrine: No Symptoms Reported Hematologic/Lymphatic: No Symptoms Reported Past [place] Hx Patient Social History Tobacco Use?: Yes Tobacco type used: Cigarettes Smoking Status: Current Everyday Smoker Use of E-Cig and/or Vaping dev: No Substance use?: No Alcohol Use?: No Pt feels they are or have been: No Immunizations Up To Date Tetanus Booster (TDap): Unknown Influenza Vaccine Up-to-Date: No; Not Current First/Initial COVID19 Vaccinat: N Second COVID19 Vaccination Chang: Third COVID19 Vaccination Date: Seasonal Allergies Seasonal Allergies: No Past Medical History Surgeries: Yes (D&C X2, VENTRAL HERNIA REPAIR, ) Abdominal, Appendectomy, Section, Gallbladder, Hysterectomy, Oophorectomy Respiratory: No Cardiac: No Neurological: No 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: Yes Female 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: Menstrual Problems, 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 Sexually Transmitted Disease: No HIV/AIDS: No Genitourinary: Yes Bladder Infection, UTI-Chronic Gastrointestinal: Yes Abdominal Hernia, Gall Bladder Disease Musculoskeletal: No Endocrine: No (OBESITY) HEENT: No Hearing Impairment: Denies Cancer: No Psychosocial: No Integumentary: Yes (ABDOMINAL WALL ABSCESSES AT SURGICAL SITES) Blood Disorders: No Adverse Reaction/Blood Tranf: No Family Medical History Congestive heart failure 19 FATHER Family history: Cardiovascular disease 19 FATHER Family history: Diabetes mellitus 19 MOTHER Heart disease 19 MOTHER History of - respiratory disease 19 FATHER 19 MOTHER Kidney disease 19 MOTHER PAST SURGICAL HISTORY: -D&C X 2 - IN 200--WITH SUBSEQUENT INFECTION WITH I&D X 2 OF THE SURGICAL SITE -HYSTERECTOMY WITH BILATERAL SALPINGO-OOPHORECTOMY, WITH ANOTHER SURGERY AFTER THAT FOR ? INFECTION ? --PER PT -VENTRAL HERNIA REPAIRS, WITH REVISIONS DUE TO ABDOMINAL WALL ABSCESSES -CHOLECYSTECTOMY -APPENDECTOMY Physical Exam Vital Signs Vital Signs - First Documented 09/11/22 19:42 Temp 36.3 Pulse 76 Resp 18 B/P (MAP) 148/88 (108) Pulse Ox 96 O2 Delivery Room Air Capillary Refill : Height/Weight/BMI Height: 5'3.00" Weight: 284lbs. 7.0oz. 129.581594dr; 51.00 BMI Method:Stated General Appearance: other (MORBIDLY OBESE. HOLDING LEFT UPPER ABDOMEN. ) HEENT: PERRL/EOMI; No scleral icterus (R), No scleral icterus (L) Neck: normal inspection Respiratory: normal breath sounds, no respiratory distress, no accessory muscle use, other (LEFT MID AND LOWER ANTERIOR, LATERAL AND POSTERIOR RIB AREA. ) Progress/Results/Core Measures Results/Orders Lab Results Laboratory Tests Test 09/11/22 20:46 09/11/22 21:19 Range/Units White Blood Count 16.3 H 4.3-11.0 10^3/uL Red Blood Count 5.62 H 3.80-5.11 10^6/uL Hemoglobin 17.1 H 11.5-16.0 g/dL Hematocrit 50 35-52 % Mean Corpuscular Volume 89 80-99 fL Mean Corpuscular Hemoglobin 30 25-34 pg Mean Corpuscular Hemoglobin Concent 34 32-36 g/dL Red Cell Distribution Width 14.6 H 10.0-14.5 % Platelet Count 267 130-400 10^3/uL Mean Platelet Volume 10.2 9.0-12.2 fL Immature Granulocyte % (Auto) 1 % Neutrophils (%) (Auto) 58 42-75 % Lymphocytes (%) (Auto) 32 12-44 % Monocytes (%) (Auto) 5 0-12 % Eosinophils (%) (Auto) 4 0-10 % Basophils (%) (Auto) 1 0-10 % Neutrophils # (Auto) 9.4 H 1.8-7.8 10^3/uL Lymphocytes # (Auto) 5.3 H 1.0-4.0 10^3/uL Monocytes # (Auto) 0.8 0.0-1.0 10^3/uL Eosinophils # (Auto) 0.6 H 0.0-0.3 10^3/uL Basophils # (Auto) 0.1 0.0-0.1 10^3/uL Immature Granulocyte # (Auto) 0.1 0.0-0.1 10^3/uL Neutrophils % (Manual) 52 % Lymphocytes % (Manual) 38 % Monocytes % (Manual) 8 % Eosinophils % (Manual) 2 % Sodium Level 143 135-145 MMOL/L Potassium Level 3.9 3.6-5.0 MMOL/L Chloride Level 107 98-107 MMOL/L Carbon Dioxide Level 23 21-32 MMOL/L Anion Gap 13 5-14 MMOL/L Blood Urea Nitrogen 11 7-18 MG/DL Creatinine 0.63 0.60-1.30 MG/DL Estimat Glomerular Filtration Rate 111 BUN/Creatinine Ratio 17 Glucose Level 133 H 70-105 MG/DL Calcium Level 9.2 8.5-10.1 MG/DL Corrected Calcium 9.5 8.5-10.1 MG/DL Total Bilirubin 0.2 0.1-1.0 MG/DL Aspartate Amino Transf (AST/SGOT) 15 5-34 U/L Alanine Aminotransferase (ALT/SGPT) 21 0-55 U/L Alkaline Phosphatase 81 40-136 U/L Troponin I < 0.028 <0.028 NG/ML Total Protein 6.9 6.4-8.2 GM/DL Albumin 3.6 3.2-4.5 GM/DL Amylase Level 38 25-125 U/L Lipase 15 8-78 U/L Urine Color YELLOW Urine Clarity CLEAR Urine pH 6.5 5-9 Urine Specific [place] 1.025 H 1.016-1.022 Urine Protein 1+ H NEGATIVE Urine Glucose (UA) NEGATIVE NEGATIVE Urine Ketones NEGATIVE NEGATIVE Urine Nitrite NEGATIVE NEGATIVE Urine Bilirubin NEGATIVE NEGATIVE Urine Urobilinogen 1.0 < = 1.0 MG/DL Urine Leukocyte Esterase NEGATIVE NEGATIVE Urine RBC (Auto) NEGATIVE NEGATIVE Urine RBC NONE /HPF Urine WBC NONE /HPF Urine Crystals PRESENT H /LPF Urine Amorphous Sediment MOD SYED URATES H /LPF Urine Bacteria NEGATIVE /HPF Urine Casts NONE /LPF Urine Mucus NEGATIVE /LPF Urine Culture Indicated NO My Orders Orders - SHELBY MESA DO Ed Iv/Invasive Line Start (09/11/22 20:21) Ekg Tracing (09/11/22 20:21) Monitor-Rhythm Ecg Trace Only (09/11/22 20:21) Amylase (09/11/22 20:21) Cbc With Automated Diff (09/11/22 20:21) Comprehensive Metabolic Panel (09/11/22 20:21) Lipase (09/11/22 20:21) Ua Culture If Indicated (09/11/22 20:21) Troponin I [place] (09/11/22 20:21) Ed Iv/Invasive Line Start (09/11/22 20:21) Lactated Ringers (Lr 1000 Ml Iv Solution (09/11/22 20:30) Ketorolac Injection (Toradol Injection) (09/11/22 20:43) Manual Differential (09/11/22 20:46) Ct Abd/Pelvis Wo(Kidney Stone) (09/11/22 21:49) Acute Abd Series (09/11/22 21:49) Morphine Injection (Morphine Injection (09/11/22 23:35) Medications Given in ED Current Medications Medications Dose Ordered Sig/Addis Route Start Time Stop Time Status Last Admin Dose Admin Lactated Ringer's 1,000 ml @ 0 mls/hr Q0M ONCE IV 09/11/22 20:30 09/11/22 20:31 DC 09/11/22 20:50 0 MLS/HR Vital Signs/I&O 09/11/22 19:42 Temp 36.3 Pulse 76 Resp 18 B/P (MAP) 148/88 (108) Pulse Ox 96 O2 Delivery Room Air Blood Pressure Mean: 108 Progress Progress Note : Progress Note GIVEN IV FLUIDS AND TORADOL Initial ECG Impression Date: Sep 11, 2022 Initial ECG Impression Time: 20:59 Initial ECG Rate: 70 Initial ECG Rhythm: Normal Sinus Departure Impression Primary Impression: LUQ abdominal pain Additional Impressions: Lung nodule seen on imaging study ADRENAL NODULE NOTED ON CT Disposition: 01 HOME, SELF-CARE Condition: Improved Departure-Patient Inst. Decision time for Depature: 00:56 Referrals: MELANIE PRINCE DO (PCP/Family) Primary Care Physician Patient Instructions: Abdominal Pain, Adult ED, CT Scan, Abdomen/Pelvis, Pulmonary Nodule Add. Discharge Instructions: HOME, REST ALTERNATE ICE AND HEAT TO SORE AREA AT 20 MINUTE INTERVALS FOLLOW UP WITH YOUR DR IN 2-3 DAYS FOR FURTHER CARE, RETURN TO ER IF SYMPTOMS WORSEN All discharge instructions reviewed with patient and/or family. Voiced understanding. Scripts Tramadol HCl (Ultram) 50 Mg Tablet 50 MG PO Q4H for Pain, #20 TAB Prov: SHELBY MESA DO 09/12/22 Cyclobenzaprine HCl (Cyclobenzaprine HCl) 10 Mg Tablet 10 MG PO Q8H PRN for SPASMS, #15 TAB 0 Refills Prov: SHELBY MESA DO 09/12/22 Naproxen (Naproxen) 500 Mg Tablet.dr 500 MG PO BID, #20 TAB Prov: SHELBY MESA DO 09/12/22 SHELBY MESA DO Sep 11, 2022 20:39
[2022-09-11] MEDS ORDERED: KETOROLAC 30 MG/ML VIAL IVP STA (20:43)
[2022-09-11 21:02] LABS: BASOPHILS # (AUTO) 0.1 10^3/uL (0.0-0.1); BASOPHILS % (AUTO) 1 % (0-10); EOSINOPHILS # (AUTO) 0.6 10^3/uL (0.0-0.3); EOSINOPHILS % (AUTO) 4 % (0-10); HEMATOCRIT 50 % (35-52); HEMOGLOBIN 17.1 g/dL (11.5-16.0); LYMPHOCYTES # (AUTO) 5.3 10^3/uL (1.0-4.0); LYMPHOCYTES % (AUTO) 32 % (12-44); MEAN CORPUSCULAR HEMOGLOBIN 30 pg (25-34); MEAN CORPUSCULAR HGB CONC 34 g/dL (32-36); MEAN CORPUSCULAR VOLUME 89 fL (80-99); MEAN PLATELET VOLUME 10.2 fL (9.0-12.2); MONOCYTES # (AUTO) 0.8 10^3/uL (0.0-1.0); MONOCYTES % (AUTO) 5 % (0-12); NEUTROPHILS # (AUTO) 9.4 10^3/uL (1.8-7.8); NEUTROPHILS % (AUTO) 58 % (42-75); PLATELET COUNT 267 10^3/uL (130-400); WHITE BLOOD COUNT 16.3 10^3/uL (4.3-11.0)
[2022-09-11 21:14] LABS: ALANINE AMINOTRANSFERASE 21 U/L (0-55); ALBUMIN 3.6 GM/DL (3.2-4.5); ALKALINE PHOSPHATASE 81 U/L (40-136); AMYLASE 38 U/L (25-125); BILIRUBIN,TOTAL 0.2 MG/DL (0.1-1.0); BUN/CREATININE RATIO 17; CALCIUM 9.2 MG/DL (8.5-10.1); CARBON DIOXIDE 23 MMOL/L (21-32); CHLORIDE 107 MMOL/L (98-107); CREATININE SERUM 0.63 MG/DL (0.60-1.30); GFR ESTIMATED 111; GLUCOSE 133 MG/DL (70-105); LIPASE 15 U/L (8-78); POTASSIUM 3.9 MMOL/L (3.6-5.0); SODIUM 143 MMOL/L (135-145); TOTAL PROTEIN 6.9 GM/DL (6.4-8.2)
[2022-09-11 21:25] LABS: BILIRUBIN,URINE NEGATIVE (NEGATIVE); CLARITY,URINE CLEAR; COLOR,URINE YELLOW; GLUCOSE, URINE (UA) NEGATIVE (NEGATIVE); KETONES,URINE NEGATIVE (NEGATIVE); LEUKOCYTE ESTERASE ,URINE NEGATIVE (NEGATIVE); NITRITE,URINE NEGATIVE (NEGATIVE); PH,URINE 6.5 (5-9); PROTEIN,URINE 1+ (NEGATIVE)
[2022-09-11 21:34] LABS: AMORPHOUS SEDIMENT,UR MOD AMOR URATES /LPF; BACTERIA,URINE NEGATIVE /HPF
[2022-09-11 21:41] LABS: EOSINOPHILS % (MANUAL) 2 %; LYMPHOCYTES % (MANUAL) 38 %; MONOCYTES % (MANUAL) 8 %; NEUTROPHILS % (MANUAL) 52 %
[2022-09-11] MEDS ORDERED: morphine INJ 10 MG/ML 1ML (SYR OR VIAL) IVP STA (23:35)
[2022-09-12] MEDS ORDERED: RX-NAPROXEN (NAPROSYN) 250 MG TAB PPK#4 PO STA (00:54)
[2022-09-12] MEDS ORDERED: RX-CYCLOBENZAPRINE 10 MG (FLEXERIL) TAB PPK#3 PO STA (00:54)
[2022-09-12] MEDS ORDERED: CYCL10TA25 PO (00:58)
[2022-09-12] MEDS ORDERED: NAPR500T8 PO (00:58)
[2022-09-12] MEDS ORDERED: TRAM-42 PO (00:58)
[2022-09-12 01:07] VITALS: BP 151/74
--- NOTE | 2022-09-12 06:34 | Diagnostic Imaging Report ---
EXAMINATION: CT abdomen and pelvis without contrast. TECHNIQUE: Multiple contiguous axial images were obtained through the abdomen and pelvis without the use of intravenous contrast. All CT scans use one or more of the following dose optimizing techniques: automated exposure control, MA and/or KvP adjustment based on patient size and exam type or iterative reconstruction. HISTORY: Flank pain, kidney stone suspected COMPARISON: 11/27/2017 FINDINGS: Lung bases: Minimal increased size of the right middle lobe pulmonary nodule which measures 0.7 cm (previously 0.6 cm). Solid organs: The liver is normal. The gallbladder is surgically absent. There is no biliary ductal dilation. Pancreas is normal. Spleen is normal. There are redemonstrated left adrenal nodules which demonstrate macroscopic fat compatible with an adrenal myelolipomas. The larger lesion has increased in size measuring up to 5.1 cm. The smaller lesion measures 2.9 cm. The kidneys are normal without visualized calculus or hydronephrosis. Bowel: The stomach and small bowel are normal without obstruction. The colon and appendix are normal. Peritoneum: There is no intraperitoneal free fluid or free air. No suspicious lymphadenopathy. Vasculature: Normal without aneurysm. Musculoskeletal: No suspicious osseous lesion or compression fracture. Pelvis: The uterus is surgically absent. No adnexal mass. The urinary bladder is normal. IMPRESSION: 1. No acute abnormality in the abdomen or pelvis. 2. Minimally increased size of the right middle lobe pulmonary nodule. 3. Agree with preliminary interpretation. Dictated by: Dictated on workstation # [id number]
--- NOTE | 2022-09-12 07:24 | Diagnostic Imaging Report ---
EXAMINATION: Abdominal series and chest radiograph HISTORY: Abdominal pain COMPARISON: None available. FINDINGS: Heart size and pulmonary vasculature are normal. The lungs are clear without consolidation, pleural effusion, or pneumothorax. The osseous structures are intact. There is moderate amount of gas and stool throughout the colon. Nonobstructive bowel gas pattern. No radiopaque foreign body. The osseous structures are intact. IMPRESSION: No acute abnormality in the chest or abdomen. Dictated by: Dictated on workstation # [id number]
== END 2022-09-12 01:08 | disposition home or self-care (01) ==
LOC: EDUNIT# 19:10 → ER 19:12
DX: R10.12 Left upper quadrant pain (principal); R91.8 Other nonspecific abnormal finding of lung field; E27.8 Other specified disorders of adrenal gland; E66.01 Morbid (severe) obesity due to excess calories; F17.210 Nicotine dependence, cigarettes, uncomplicated; Z68.43 Body mass index [BMI] 50.0-59.9, adult; Z88.6 Allergy status to analgesic agent; Z87.19 Personal history of other diseases of the digestive system; Z98.890 Other specified postprocedural states; Z90.49 Acquired absence of other specified parts of digestive tract
CPT/HCPCS: 36415; 74022; 74176; 80053; 81000; 82150; 83690; 84484; 85007; 85027; 93005; 93041

== ENCOUNTER 2023-06-01 18:59 | Emergency (ER) | payer BC ==
[~2023-06-01] VITALS: Ht 160 cm; Wt 117.9 kg
[~2023-06-01 18:59] MED LIST changes: +NAPR500T8 PO
--- NOTE | 2023-06-01 19:19 | ED GU-Female ---
General Chief Complaint: - Reproductive Stated Complaint: BURNING/PRESSURE WITH URINATION Source: patient Exam Limitations: no limitations History of Present Illness Date Seen by Provider: Jun 01, 2023 Time Seen by Provider: 19:00 Initial Comments 48-year-old female presents to the ER with complaints of UTI symptoms including dysuria, pressure in her groin area, urinary frequency, urinary urgency, and lower back pain starting 2 hours prior to arrival. She denies fevers, abdominal pain, nausea, vomiting. Last bowel movement was this morning and normal. She states she took Azo and has tried drinking a lot of water. Allergies and Home Medications Allergies Coded Allergies: fentanyl (Verified Allergy, Mild, 11/27/17) chest tightness, anxiety Patient Home Medication List Home Medication List Reviewed: Yes Albuterol Sulfate (Albuterol Sulfate) 2.5 Mg/3 Ml Vial.neb, 2.5 MG INH Q4H PRN for WHEEZING Prescribed by: KRISTINA REESE on 10/12/20 1507 Azithromycin (Azithromycin) 250 Mg Tablet, 250 MG PO UD Prescribed by: TABATHA ALCANTARA on 07/21/221820 Cefdinir (Cefdinir) 300 Mg Capsule, 300 MG PO BID Prescribed by: TABATHA ALCANTARA on 05/17/20 025 Cefdinir (Cefdinir) 300 Mg Capsule, 300 MG PO BID Prescribed by: KRISTINA REESE on 10/12/20 150 Cefpodoxime Proxetil (Cefpodoxime Proxetil) 200 Mg Tablet, 200 MG PO BID Prescribed by: Jody Fink on 06/01/232031 Cyclobenzaprine HCl (Cyclobenzaprine HCl) 10 Mg Tablet, 10 MG PO Q8H PRN for SPASMS Prescribed by: SHELBY MESA on 09/12/22 0058 Docusate Sodium (Colace) 100 Mg Capsule, 100 MG PO DAILY Prescribed by: MADDIE DIAZ on 12/12/17 1238 Hydrocodone Bit/Acetaminophen (Lortab 5 Mg Tablet) 1 Tab Tab, 1 TAB PO Q4H PRN Prescribed by: MADDIE DIAZ on 12/12/17 1238 Hydrocodone/Acetaminophen (Hydrocodone-Acetamin 5-325 mg) 1 Each Tablet, 1 EACH PO BID Prescribed by: TABATHA ALCANTARA on 05/17/20 0252 Naproxen (Naproxen) 500 Mg Tablet.dr, 500 MG PO BID Prescribed by: SHELBY MESA on 09/12/22 0058 Prednisone (Prednisone) 20 Mg Tab, 40 MG PO DAILY Prescribed by: KRISTINA REESE on 10/12/20 1507 Tramadol HCl (Ultram) 50 Mg Tablet, 50 MG PO Q4H Prescribed by: SHELBY MESA on 09/12/22 0059 Review of Systems Review of Systems Constitutional: see HPI Past Djunema-Ucfpgm-Dhxgbt Hx Patient Social History Tobacco Use?: Yes Tobacco type used: Cigarettes Substance use?: No Alcohol Use?: No Immunizations Up To Date Tetanus Booster (TDap): Unknown First/Initial COVID19 Vaccinat: Second COVID19 Vaccination Chang: Third COVID19 Vaccination Date: Seasonal Allergies Seasonal Allergies: No Past Medical History Surgeries: Yes (D&C X2, VENTRAL HERNIA REPAIR, ) Abdominal, Appendectomy, Section, Gallbladder, Hysterectomy, Oophorectomy Respiratory: No Cardiac: No Neurological: No 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: Yes Female 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: Menstrual Problems, 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 Sexually Transmitted Disease: No HIV/AIDS: No Genitourinary: Yes Bladder Infection, UTI-Chronic Gastrointestinal: Yes Abdominal Hernia, Gall Bladder Disease Musculoskeletal: No Endocrine: No (OBESITY) HEENT: No Hearing Impairment: Denies Cancer: No Psychosocial: No Integumentary: Yes (ABDOMINAL WALL ABSCESSES AT SURGICAL SITES) Blood Disorders: No Adverse Reaction/Blood Tranf: No Family Medical History Congestive heart failure 19 FATHER Family history: Cardiovascular disease 19 FATHER Family history: Diabetes mellitus 19 MOTHER Heart disease 19 MOTHER History of - respiratory disease 19 FATHER 19 MOTHER Kidney disease 19 MOTHER PAST SURGICAL HISTORY: -D&C X 2 - IN 200--WITH SUBSEQUENT INFECTION WITH I&D X 2 OF THE SURGICAL SITE -HYSTERECTOMY WITH BILATERAL SALPINGO-OOPHORECTOMY, WITH ANOTHER SURGERY AFTER THAT FOR ? INFECTION ? --PER PT -VENTRAL HERNIA REPAIRS, WITH REVISIONS DUE TO ABDOMINAL WALL ABSCESSES -CHOLECYSTECTOMY -APPENDECTOMY Physical Exam Vital Signs Vital Signs - First Documented 06/01/23 19:09 Pulse 79 B/P (MAP) 166/86 (112) Pulse Ox 96 O2 Delivery Room Air Capillary Refill : Height, Weight, BMI Height: 5'3.00" Weight: 284lbs. 7.0oz. 129.517925rg; 51.00 BMI Method:Stated General Appearance: WD/WN, no apparent distress Neck: supple, normal inspection Cardiovascular: regular rate, rhythm Respiratory: lungs clear, normal breath sounds, no respiratory distress, no accessory muscle use Back: no CVA tenderness Extremities: normal range of motion, normal inspection Neurologic/Psychiatric: alert, normal mood/affect Skin: normal color, warm/dry Progress/Results/Core Measures Suspected Sepsis SIRS Temperature: Pulse: Respiratory Rate: Blood Pressure / Mean: Results/Orders Lab Results My Orders Medications Given in ED Vital Signs/I&O Capillary Refill : Progress Note : Progress Note Patient seen and evaluated, resting comfortably in bed, no acute distress. Symptoms likely caused by urinary tract infection. Urinalysis ordered. Patient has had a hysterectomy, did not order urine . 2028 urinalysis reviewed. 1+ protein, trace glucose, positive nitrates, 1+ leukocytes, 3+ RBCs, 50-100 WBCs, negative bacteria. IM Rocephin ordered. Will discharge with prescription for antibiotic. Results discussed with patient. Discharge instructions and return precautions provided. Departure Impression Primary Impression: Urinary tract infection Qualified Codes: N30.01 - Acute cystitis with hematuria Disposition: HOME, SELF-CARE Condition: Stable Departure-Patient Inst. Decision time for Depature: 20:31 Referrals: MELANIE PRINCE DO (PCP/Family) Primary Care Physician Patient Instructions: Urinary Tract Infection, Adult (DC) Add. Discharge Instructions: Complete full course of antibiotic as prescribed. You may continue taking Azo [id number] for UTI symptoms, do not take for more than 3 days in a row. Make sure you are drinking plenty of water. Return any new, concerning, or worsening symptoms. All discharge instructions reviewed with patient and/or family. Voiced understanding. Scripts Cefpodoxime Proxetil (Cefpodoxime Proxetil) 200 Mg Tablet 200 MG PO BID for 10 Days, #20 TAB 0 Refills Prov: JODY NIEVES APRN 06/01/23 JODY NIEVES APRN Jun 01, 2023 19:19
[2023-06-01] MEDS ORDERED: ACETAMINOPHEN 500 MG TABLET PO ONE (19:30)
[2023-06-01 19:47] LABS: BACTERIA,URINE NEGATIVE /HPF; BILIRUBIN,URINE NEGATIVE (NEGATIVE); CLARITY,URINE CLEAR; COLOR,URINE ORANGE; GLUCOSE, URINE (UA) TRACE (NEGATIVE); KETONES,URINE NEGATIVE (NEGATIVE); LEUKOCYTE ESTERASE ,URINE 1+ (NEGATIVE); NITRITE,URINE POSITIVE (NEGATIVE); PROTEIN,URINE 1+ (NEGATIVE); WBC,URINE 50-100 /HPF
[2023-06-01] MEDS ORDERED: LIDOCAINE 1% INJ 20 ML VIAL INJ ONE (20:30)
[2023-06-01] MEDS ORDERED: cefTRIAXone 1,000 MG VIAL IV/IM IM ONE (20:30)
[2023-06-01] MEDS ORDERED: CEFP200T2 PO (20:32)
[2023-06-01 20:50] VITALS: BP 148/59
== END 2023-06-01 20:49 | disposition home or self-care (01) ==
LOC: EDUNIT# 18:59 → ER 19:00
DX: N39.0 Urinary tract infection, site not specified (principal); F17.210 Nicotine dependence, cigarettes, uncomplicated; E66.9 Obesity, unspecified; Z68.43 Body mass index [BMI] 50.0-59.9, adult
CPT/HCPCS: 81000; 87088; 99284

== ENCOUNTER → 2023-08-22 | Outpatient (CLI) | payer BC ==
[~2023-08-22] MED LIST changes: +CEFP200T2 PO
--- NOTE | 2023-08-22 18:19 | Diagnostic Imaging Report ---
EXAMINATION: Left humerus radiograph EXAM DATE: 08/22/2023 12:24 PM COMPARISON: None available. HISTORY: Left arm pain TECHNIQUE: 3 views FINDINGS: There is no acute fracture, dislocation, or destructive osseous process. The joint spaces are normal. The soft tissues are normal. IMPRESSION: 1. No acute osseous abnormality. Dictated by: Dictated on workstation # [id number]
== END ==
LOC: RAD 11:57
PROVIDERS: ATTEND Family Medicine
DX: M79.602 Pain in left arm (principal)
CPT/HCPCS: 73060